=== PATIENT | female | born 1980 | race Caucasian/White ===

== ENCOUNTER 2022-05-04 10:26 | Outpatient (CLI) | payer BC, SELFPAY ==
--- OUTSIDE RECORDS SUMMARY | 2022-05-04 10:31 | XMS_ITS | Encounter Summary ---
:1980 Author Organization [facility] Address [address] [place] [address] Care Team Providers Name Role Phone Unavailable Primary Care Provider Unavailable Encounter Details Date Type Department Care Team Description 02/27/2015 Hospital Encounter HX [facility] Мария Spears M.D. [address] [place] [phone] (Wo rk) Social History Tobacco Use Types Packs/Day Years Used Date Smoking Tobacco: Never Assessed Alcohol Habits Answer Date Recorded How often do you have a drink containing alcohol? Never 07/23/2020 How many drinks containing alcohol do you have on a typical Not asked day when you are drinking? How often do you have six or more drinks on one occasion? No t asked Comment: Not asked Sex Assigned at Date Recorded Not on file documented as of this encounter Last Filed Vital Signs Vital Sign Reading Time Taken Comments Blood Pressure - - Pulse - - Temperature - - Respiratory Rate - - Oxygen Saturation - - Inhaled Oxygen Concentration - - Weight - - Height 170 cm (5' 6.93) 02/27/2015 8:33 AM CDT Body Mass Index - - documented in this encounter Medications at Time of Discharge Medication Sig Dispensed Refills Start Date End Date tetrahydrozoline (Visine) 0.05 1 drop as needed. 0 08/26/2008 % ophthalmic solution documented as of this encounter Miscellaneous Notes Miscellaneous - Conversion, Historical Provider Ser - 02/27/2015 11:59 PM CDT Coding Summary-Paper Based CODING DATE: 03/04/2015 FINAL [facility] STATUS: * Discharged to Home or Self Care PAYOR: [employer] ADMIT DX: 575.9 Unspecified Disorder of Gallbladder REASON FOR VISIT DX: 575.9 Unspecified Disorder of Gallbladder FINAL DX: PRINCIPAL: 575.9 Unspecified Disorder of Gallbladder SECONDARY: PROCEDURES DOCTOR NAME DATE NOTE: The code number assigned matches the documented diagnosis and / or procedure in the patient's chart. However, the narrative phrase printed from the coding software may appear abbreviated, or result in slightly different terminology. Coded By: BHAVANI PANDEY Date Saved: 03/04/2015 02:31 pm Source: [facility] Document Id: [id number] Miscellaneous - David Crabtree M.D. - 02/27/2015 6:52 PM CDT Normal Results Letter 27 February 2015 HATTIE BRENNER [address] [facility] [phone] Dear HATTIE BRENNER, I am pleased to report that your results from the following diagnostic test(s) are normal. Please follow up with us as we discussed during your visit or sooner if you have any concerns. If you have questions or concerns, please do not hesitate to call our office. Hattie for your record. Result Name Current Result US Abdomen Limited 02/27/2015 Sincerely, DAVID CRABTREE [address] [address] Electronic Signature Electronically Signed By: DAVID CRABTREE MD On: 27 February 2015 This document has images extracted. Source: [facility] Document Id: [id number] Electronically signed by Conversion, [facility] Tv Production Assistant [id number] at 01/03/2017 10:38 PM CDT documented in this encounter Plan of Treatment Not on filedocumented as of this encounter Visit Diagnoses Not on filedocumented in this encounter
--- OUTSIDE RECORDS SUMMARY | 2022-05-04 10:31 | XMS_ITS | Encounter Summary ---
:1980 Author Organization [facility] Address [address] [place] [address] Care Team Providers Name Role Phone Unavailable Primary Care Provider Unavailable Encounter Details Date Type Department Care Team Description 01/21/2015 Hospital Encounter HX [facility] Dewey Lawrence, MIKE RN, C.N.P., D.N.P. [address] [place] [address] [phone] (Wo rk) Social History Tobacco Use Types [...] - - Height 170 cm (5' 6.93) 01/21/2015 10:15 AM CDT Body Mass Index - - documented in this encounter Medications at Time of Discharge Medication Sig Dispensed Refills Start Date End Date tetrahydrozoline (Visine) 0.05 1 drop as needed. 0 08/26/2008 % ophthalmic solution documented as of this encounter Miscellaneous Notes Telephone Encounter - Conversion, Historical Provider Ser - 02/04/2015 2:24 PM CDT Please call Document Contains Addenda Addendum by NUZHAT MAS RN on 14 February 2015 10:21:18 CDT LM again to call nurse Addendum by FRANCY AMADO V on 11 February 2015 08:58:54 CDT LVM again Addendum by DEWEY LAWRENCE RN, WAIVER ANALYST on 11 February 2015 06:02:57 CDT From: DEWEY LAWRENCE RN, WAIVER ANALYST To: FRANCY AMADO V; NUZHAT MAS RN; Sent: 02/11/2015 06:02:57 CDT Subject: RE: Please call I have tried calling but unable to reach. I have left a message. Can you call and ask if it is regarding medication for anxiety? Thanks Addendum by DEWEY LAWRENCE RN, WAIVER ANALYST on 05 February 2015 19:22:47 CDT From: DEWEY LAWRENCE RN, WAIVER ANALYST To: FRANCY AMADO V; Sent: 02/05/2015 19:22:47 CDT Subject: RE: Please call called and left message. From: FRANCY AMADO V To: DEWEY LAWRENCE RN, WAIVER ANALYST; Sent: 02/04/2015 14:24:48 CDT Subject: Please call Pt requesting you call to discuss meds. She indicated you had discussed this @ 11/15 visit but it wasn't for her thyroid. Dictation doesn't mention anything else. # [phone] Source: [facility] [employer] Document Id: [id number] Miscellaneous - Dewey Lawrence, ALEXEY, C.N.P. - 01/23/2015 1:09 PM CDT Normal Results Letter 23 January 2015 HATTIE BRENNER [address] [facility] [phone] Dear HATTIE BRENNER, Your results from the following Thyroid test is improved but still high. I'd like to increase your Kelly to 60mg daily and recheck your TSH (blood draw) in 3 months. A new script was sent to your pharmacy. Please follow up with us as we discussed during your visit or sooner if you have any concerns. If you have questions or concerns, please do not hesitate to call our office. Result Name Current Result Previous Result Normal Range TSH (mIU/L) (H) 4.63 01/21/2015 (H) 6.05 10/16/2014 0.27 - 4.20 Sincerely, DEWEY LAWRENCE [id number] [address] Electronic Signature Electronically Signed By: DEWEY LAWRENCE RN, WAIVER ANALYST On: 23 January 2015 This document has images extracted. Source: [facility] POWERCHART Document Id: [id number] Electronically signed by Conversion, [facility] Security Advisor [id number] at 01/04/2017 2:13 PM CDT documented in this encounter Plan of Treatment Not on filedocumented as of this encounter Procedures Procedure Name Priority Date/Time Associated Diagnosis Comme nts THYROID-STIMULATING Routine 01/21/2015 10:23 AM R esults for this HORMONE-SENSITIVE CDT procedure are in (S-TSH) the results section. documented in this encounter Results (ABNORMAL) Thyroid-Stimulating Hormone-Sensitive (s-TSH) (01/21/2015 10:23 AM CDT) P athologist Signature TSH 4.63 (H) 0.27 - POWERCHART (Thyrotropin) 4.20 MIUL Specimen (Source) Anatomical Collection Method Collection Time Re ceived Time Location / / Volume Laterality Blood 01/21/2015 10:23 AM CDT Dewey Lawrence APRN, C.N.P., D.N.P. LAB BLOOD ADD-ON Performing Organization Address City/State/ZIP Code Phon e Number POWERCHART documented in this encounter Visit Diagnoses Not on filedocumented in this encounter
--- OUTSIDE RECORDS SUMMARY | 2022-05-04 10:31 | XMS_ITS | Encounter Summary ---
:1980 Author Organization [facility] Address [address] [place] [address] Care Team Providers Name Role Phone Laureen Montana D.O. Primary Care Provider [phone] Reason for Visit Reason Comments Med Refill Encounter Details Date Type Department Care Team Description 09/02/2021 Refill Department of [facility] [place] Montana D.O. Med Refill Medicine, [facility], in [address] [place] [address] [address] [facility] [place] [address] [phone] Social History Tobacco Use Types Packs/Day Years Used Date Smoking Tobacco: Never Smokeless Tobacco: Never Alcohol Use Standard Drinks/Week Comments Not Currently 0 (1 standard drink = 0.6 oz pure alcoho l) Alcohol Habits Answer Date Recorded How often [...] on file documented as of this encounter Plan of Treatment Not on filedocumented as of this encounter Visit Diagnoses Not on filedocumented in this encounter Care Teams Dental Office Coordinator Relationship Specialty Start Date End Date Laureen Montana D.O. PCP - General Family Medicine 09/27/20 [address] [place] [phone] documented as of this encounter
--- OUTSIDE RECORDS SUMMARY | 2022-05-04 10:31 | XMS_ITS | Encounter Summary ---
:1980 Author Organization [facility] Address [address] [place] [address] Care Team Providers Name Role Phone Laureen Montana D.O. Primary Care Provider [phone] Encounter Details Date Type Department Care Team Description 02/27/2021 Hospital Encounter Department of Matt Abad M.D. Radiology in [place] [id number] [place] [address] [place] [address] Social History Tobacco Use Types Packs/Day Years [...] on file documented as of this encounter Medications at Time of Discharge Medication Sig Dispensed Refills Start Date End Date laelvxu-nphvevswn-yuua Take by mouth. 0 333-133-5 mg tablet cholecalciferol (VITAMIN Take 1 capsule by 0 D3) 2.5 mcg (100 Unit) mouth. tablet Lactobac no.30-Bifidobact Take 1 capsule by 0 no.4 30 billion cell mouth daily. capsule,delayed release(DR/EC) omega-3 fatty acids-fish 1 capsule. 0 oil 340-1,000 mg per capsule tetrahydrozoline (Visine) 1 drop as needed. 0 0.05 % ophthalmic solution thyroid, pork, 30 mg tablet Take 1 tablet (30 90 tablet 3 0 10/01/2020 09/01/2021 mg total) by mouth daily. documented as of this encounter Plan of Treatment Not on filedocumented as of this encounter Procedures Procedure Name Priority Date/Time Associated Comments Diagnosis DX CHEST AP OR PA RAD - Routine 02/27/2021 4:56 Pain Head Results for this AND LATERAL 2 (most inpatients PM CDT Pain Neck procedure are in VIEWS and all Pain Chest the results outpatients) Atypical section. documented in this encounter Results DX Chest AP or PA and Lateral 2 Views (02/27/2021 4:56 PM CDT) Anatomical Region Laterality Modality Chest, Thoracic RST LOS, Thoracic ARZ LOS, Thoracic N/A Digital Radiography FLA LOS Specimen (Source) Anatomical Collection Method Collection Time Re ceived Time Location / / Volume Laterality 02/27/2021 11:19 PM CDT Impressions 02/27/2021 11:20 PM CDT No focal pulmonary consolidation. No pleural effusion. No pneumothorax. Normal cardiomediastinal s ilhouette. Narrative 02/27/2021 11:20 PM CDT EXAM: DX CHEST AP OR PA AND LATERAL 2 VIEWS Procedure Note Mata Huggins M.D. - 02/27/2021Format ting of this note might be different from the original. EXAM: DX CHEST AP OR PA AND LATERAL 2 EWS IMPRESSION: No focal pulmonary consolidation. No ple ural effusion. No pneumothorax. Normal cardiomediastinal s ilhouette. Matt Abad M.D. [facility] DI[facility]NOSTIC IMAGING PROCE JOEY documented in this encounter Visit Diagnoses Not on filedocumented in this encounter Care Teams Supervisor Paper Products Relationship Specialty Start Date End Date Laureen Montana D.O. PCP - General Family Medicine 09/27/20 [address] [place] [phone] documented as of this encounter
--- OUTSIDE RECORDS SUMMARY | 2022-05-04 10:31 | XMS_ITS | Encounter Summary ---
:1980 Author Organization [facility] Address [address] [place] [address] Care Team Providers Name Role Phone Laureen Montana D.O. Primary Care Provider [phone] Reason for Referral Outpatient (Routine) - Closed Specialty Diagnoses / Procedures Referred By Contact Refer red To Contact Diagnoses Pain Head Pain Neck Pain Chest Atypical Matt Abad M.D. [facility] Region Procedures ECG [address] [place] [address] Referral ID Status Reason Start Date Expiration Date Visits Requ ested Visits Authorized [id number] Closed 02/27/2021 02/27/2022 1 1 Reason for Visit Reason Comments Pain neck, head and chest Appointment Request (Routine) - Closed Specialty Diagnoses / Procedures Referred By Contact Refer red To Contact Family Medicine Referral ID Status Reason Start Date Expiration Date Visits Requ ested Visits Authorized [id number] Closed 02/27/2021 02/27/2022 1 1 Encounter Details Date Type Department Care Team Description 02/27/2021 Office Visit Department of Matt Schumacher Pai n Head (Primary Dx); Medicine, [facility]; Clinic, in [address] [facility] [address] [place] [address] [place] [address] [place] [phone] (Wo rk) [phone] Social History Tobacco Use Types Packs/Day Years [...] Sign Reading Time Taken Comments Blood Pressure 134/74 02/27/2021 3:21 PM CDT Pulse 91 02/27/2021 3:21 PM CDT Temperature 37.4 ??C (99.3 ??F) 02/27/2021 3:21 PM CDT Respiratory Rate - - Oxygen Saturation 100% 02/27/2021 3:21 PM CDT room ai r Inhaled Oxygen Concentration - - Weight 60.9 kg (134 lb 4.2 oz) 02/27/2021 3:21 PM CDT Height - - Body Mass Index 21.03 07/23/2020 10:07 AM FLIPPING MACHINE OPERATOR documented in this encounter Progress Notes Matt Abad M.D. - 02/27/2021 3:30 PM CDT SUBJECTIVE CHIEF COMPLAINT/REASON FOR VISIT Hattie Brenner is a 40 y.o. female presenting today for evaluation of Pain (neck, head and chest) . HISTORY OF PRESENT ILLNESS Left head and neck pain off and on for a month. Today had left chest pain as well (also present in past, but not as often). That seems a separate issue. This started with a severe occipital region headpain when at the pool. The pain does awaken her at night. No specific tx yet. Essential oil does provide limited benefit for head/neck pain. No fever/chills, no nausea/vomiting, no skin rash. No vision/hearing problems. Seems a little off balance with head sxs but no falls. No incoordination. No photo or phonophobia. No nausea during. No aura. No swollen joints or painful joints. No known insect bites including mosquito or tick. Used to get migraines and nothing like that. Not . Taking an [place] Thyroid supplement which is working better for her than previous options. Had MRI brain 2015: 19-Nov-2014 14:29:00 Exam: MRI Hd wo&w Indications: headaches ORIGINAL REPORT - 19-Nov-2014 17:53:00 EXAM: MRI Brain without and with IV contrast COMPARISON: Head CT 07/16/2004 IMPRESSION: No restricted diffusion, abnormal enhancement, mass effect, or hydrocephalus. Two, small nonenhancing T2 hyperintensities involving the right frontal lobe (12/28 and ) are nonspecific but can be seen the small vessel change or in some migraineurs. No findings to correlate with the prominent left parietal sulcus demonstrated on the prior CT. Opacification of a single anterior right ethmoid air cell. Hypoplasia of the frontal sinuses. CURRENT MEDICATIONS Current Outpatient Medications Medication Sig Dispense Refill ??? hwsnoyk-ozcvtiuuu-agcu 333-133-5 mg tablet Take by mouth. ??? Lactobac no.30-Bifidobact no.4 30 billion cell capsule,delayed release(DR/EC) Take 1 capsule by mouth daily. ??? omega-3 fatty acids-fish oil 340-1,000 mg per capsule 1 capsule. ??? tetrahydrozoline (Visine) 0.05 % ophthalmic solution 1 drop as needed. ??? thyroid, pork, 30 mg tablet Take 1 tablet (30 mg total) by mouth daily. 90 tablet 3 ??? cholecalciferol (VITAMIN D3) 2.5 mcg (100 Unit) tablet Take 1 capsule by mouth. No current facility-administered medications for this visit. ALLERGIES/CONTRAINDICATIONS Allergies Allergen Reactions ??? Paroxetine Other (see comments) Made depression worse, Suicidal ??? Pollen Extracts Other (see comments) Sneezing, itchy eyes MEDICAL HISTORY No past medical history on file. SURGICAL HISTORY Past Surgical History: Procedure Laterality Date ??? CHOLECYSTECTOMY 2016 ??? MYRINGOTOMY AND INSERTION OF T TUBE N/A Myringotomy including aspiration and/or eustachian tube inflation requiring general anesthesia.. ??? OTHER CONVERTED SHX (SEE COMMENT) N/A 07/27/1988 Bilateral myringotomy with insertion of Paparella tube. FAMILY HISTORY Family History Problem Relation Age of Onset ??? Diabetes Grandmother ??? Breast cancer Aunt SOCIAL HISTORY Social History Tobacco Use ??? Smoking status: Never Smoker ??? Smokeless tobacco: Never Used Substance Use Topics ??? Alcohol use: Not Currently SCREENINGS: The following screenings were completed: PHQ-2 Score: 0 OBJECTIVE VITAL SIGNS Blood pressure 134/74, pulse 91, temperature 37.4 ??C, temperature source Temporal, weight 60.9 kg, last menstrual period 02/27/2021, SpO2 100 %. Body mass index is 21.03 kg/m??. PHYSICAL EXAMINATION General: Pleasant, well appearing, NAD Neuro: Romberg negative. CNII-XII grossly symmetric and intact. Biceps, quadriceps DTRs symmetric and intact. Grasp symmetric. Heart: RRR no m/g/r. Tender to palpation along left costochondral junction. Lungs: CTA bilat ENT: TMs and canals normal. Left neck musculature is tender with increased tone, but no erythema/warmth, no meningismus. ASSESSMENT / PLAN #1 Pain Head #2 Pain Neck #3 Pain Chest Atypical Other orders - ECG 12 Lead; Future; Expected date: 02/27/2021 - DX Chest AP or PA and Lateral 2 Views; Future; Expected date: 02/27/2021 - CRP (C-Reactive Protein) - D-Dimer - Sedimentation Rate - DX Chest AP or PA and Lateral 2 Views - ECG 12 Lead Will check labs as above; pt did have additional blood work in November so we do not need to redraw CBCor TSH today. This presentation is not consistent with PE or other thromboembolic phenomenon but will check d-dimer. We agreed updated RETREAD MOLD OPERATOR imaging not indicated at this point, but she should update us if sxs persist or worsen. Regarding symptom management, recommended she scrutinize her mattress/pillow for any potential issues. She will continue essential oil application which helps, and she plans to have massage therapy as well. Finally, I recommended trial of OTC NSAID and she seems amenable. Questions answered, no other concerns. documented in this encounter Miscellaneous Notes Result Encounter Note - Matt Abad M.D. - 03/03/2021 7:26 AM CDT Shivam Kuhn, As you may have seen, your d-dimer (blood clot test) is also normal. Please proceed as we discussed at your appointment, and let me (or Dr. Montana) know if your symptoms persist or change. Dr. Abad Result Encounter Note - Matt Abad M.D. - 02/28/2021 12:38 PM CDT Shivam Kuhn, I'm pleased to report your chest x ray, ECG and inflammatory markers (sedimentation rate and CRP) look good. This is very reassuring. Your d-dimer test is still pending. I will be in touch when that result is available. Dr. Abad documented in this encounter Plan of Treatment Not on filedocumented as of this encounter Procedures Procedure Name Priority Date/Time Associated Comments Diagnosis DX CHEST AP OR PA RAD - Routine 02/27/2021 4:56 Pain Head Results for AND LATERAL 2 VIEWS (most inpatients PM CDT Pain Neck this procedure and all Pain Chest are in the outpatients) Atypical results section. ECG Routine 02/27/2021 4:28 Pain Head Results for PM CDT Pain Neck this procedure Pain Chest are in the Atypical results section. SEDIMENTATION RATE, Routine 02/27/2021 4:27 Pain Head Results for B PM CDT Pain Neck this procedure Pain Chest are in the Atypical results section. D-DIMER, P Routine 02/27/2021 4:27 Pain Head Results for PM CDT Pain Neck this procedure Pain Chest are in the Atypical results section. C-REACTIVE PROTEIN Routine 02/27/2021 4:27 Pain Head Results for (CRP), S/P PM CDT Pain Neck this procedure Pain Chest are in the Atypical results section. documented in this encounter Results DX [...] Normal cardiomediastinal s ilhouette. Matt Abad M.D. IMG DIAGNOSTIC IMAGING PROCE [facility] ECG 12 Lead (02/27/2021 4:28 PM CDT) P athologist Signature Ventricular Rate 68 BPM MUSE ECG/Min TX Interval 118 ms MUSE QRSD Interval 76 ms MUSE QT Interval 428 ms MUSE QTC Interval 455 ms MUSE P [place] 71 degrees MUSE R [place] 45 degrees MUSE T Wave [place] 26 degrees MUSE Specimen Anatomical Collection Method Collection Time Receive d Time (Source) Location / / Volume Laterality 02/27/2021 4:28 PM 4:46 CDT PM CDT Impressions MUSE - 02/27/2021 4:47 PM CDT Normal sinus rhythm with short TX Left atrial enlargement Nonspecific ST and T wave abnormality When compared with ECG of 24-APR-2004 09 :11, No significant change was found Reviewed by TANNER Alracon Narrative This result has an attachment that is no t available. Procedure Note Mata Romo M.D. - 02/27/2021Form atting of this note might be different from the original. IMPRESSION: Normal sinus rhythm with short TX Left atrial enlargement Nonspecific ST and T wave abnormality When compared with ECG of 24-APR-2004 09 :11, No significant change was found Reviewed by TANNER Alarcon Matt Abad M.D. ECG ORDERABLES Performing Organization Address City/State/ZIP Code Phon e Number MUSE MUSE NA Sedimentation Rate (02/27/2021 4:27 PM CDT) Analysis Performed At Patho logist Time Signature Sedimentation 10 0 - 29 02/27/2021 [facility] Rate, B mm/1 h 8:22 PM CDT Specimen Anatomical Collection Method Collection Time Receive d Time (Source) Location / / Volume Laterality Blood (Blood, 02/27/2021 4:27 PM 02/28/20 7:34 Venous) CDT PM CDT Matt Abad M.D. LAB BLOOD ADD-ON Performing Organization Address City/State/ZIP Code Phon e Number [facility]- [address] [place], [place] [address] [place] [address] System in [place] [address] [place], [place] [address] D-Dimer (02/27/2021 4:27 PM CDT) athologist Signature D-Dimer, P <220 <=500 ng/mL 02/28/2021 [facility] FEU 3:17 PM CDT Comment: ----ADDITIONAL INFORMATION---- D-dimer values less than or equal to 500 ng/mL fibrinogen equivalent units (FEU) may be used in co njunction with clinical pre-test probability to exclude deep vein thrombosis (DVT) and/or pulmonary emboli sm (PE). Specimen Anatomical Collection Method Collection Time Receive d Time (Source) Location / / Volume Laterality Blood (Blood, 02/27/2021 4:27 PM 02/29/20 3:14 Venous) CDT PM CDT Matt Abad M.D. LAB BLOOD ADD-ON Performing Organization Address City/[facility]/ZIP Code Phon e Number [facility]- [address] [place], [place] [address] [place] [address] System in [place] CRP (C-Reactive Protein) (02/27/2021 4:27 PM CDT) athologist Signature C-Reactive <3.0 <=8.0 mg/L 02/27/2021 [facility] Protein (CRP), 7:55 PM CDT P Specimen Anatomical Collection Method Collection Time Receive d Time (Source) Location / / Volume Laterality Blood (Blood, 02/27/2021 4:27 PM 02/28/20 21 7:34 Venous) CDT PM CDT Matt Abad M.D. LAB BLOOD ADD-ON Performing Organization Address City/State/ZIP Code Phon e Number [facility]- [address] [place], [place] [address] [place] [address] System in [place] [address] documented in this encounter Visit Diagnoses Diagnosis Pain Head - Primary Pain Neck Pain Chest Atypical documented in this encounter Care Teams Heating And Refrigeration Inspector Relationship Specialty Start Date End Date Laureen Montana D.O. PCP - General Family Medicine 09/27/20 [address] [place] [address] documented as of this encounter
--- OUTSIDE RECORDS SUMMARY | 2022-05-04 10:31 | XMS_ITS | Encounter Summary ---
:1980 Author Organization [facility] Address [address] [place] [address] Care Team Providers Name Role Phone Laureen Montana D.O. Primary Care Provider [phone] Encounter Details Date Type Department Care Team Description 04/14/2022 Orders Only [facility] P[facility] HL MNT Laureen Montana, Hypothyroidism D.O. [address] [place], [place] [phone] (Wo rk) Social History Tobacco [...] as of this encounter Plan of Treatment Scheduled Orders Name Type Priority Associated Diagnoses Order S asad S-TSH Lab Routine Hypothyroidism Expected: , (Thyroid-Stimulating Expires : 10/11/2022 Hormone - Sensitive) documented as of this encounter Visit Diagnoses Diagnosis Hypothyroidism documented in this encounter Care Teams German Professor Relationship Specialty Start Date End Date Laureen Montana D.O. PCP - General Family Medicine 09/27/20 [address] [place] [address] documented as of this encounter
--- OUTSIDE RECORDS SUMMARY | 2022-05-04 10:31 | XMS_ITS | Encounter Summary ---
:1980 Author Organization [facility] Address [address] [place] [address] Care Team Providers Name Role Phone Laureen Montana D.O. Primary Care Provider [phone] Reason for Visit Reason Comments Nasal Congestion Appointment Request (Routine) - Closed Specialty Diagnoses / Procedures Referred By Contact Refer red To Contact Family Medicine Referral ID Status Reason Start Date Expiration Date Visits Requ ested Visits Authorized [id number] Closed 07/18/2021 07/18/2022 1 1 Encounter Details Date Type Department Care Team Description 07/18/2021 Office Visit Department of [facility] Matt Abad, Inf ection Upper Respiratory (Primary Dx); Megan Fitch M.D. Conj[facility]ivitis [facility], in [address] [place] [address] [place] [place] [phone] (Work) [phone] Social History Tobacco Use Types Packs/Day Years [...] Sign Reading Time Taken Comments Blood Pressure 117/77 07/18/2021 9:54 AM DIRECTOR OF GLOBAL MARKETING Pulse 86 07/18/2021 9:54 AM DIRECTOR OF GLOBAL MARKETING Temperature 36.6 ??C (97.9 ??F) 07/18/2021 9:54 AM DIRECTOR OF GLOBAL MARKETING Respiratory Rate - - Oxygen Saturation 100% 07/18/2021 9:54 AM DIRECTOR OF GLOBAL MARKETING Inhaled Oxygen Concentration - - Weight 60.1 kg (132 lb 7.9 oz) 07/18/2021 9:54 AM DIRECTOR OF GLOBAL MARKETING Height - - Body Mass Index 20.75 07/23/2020 10:07 AM DIRECTOR OF GLOBAL MARKETING documented in this encounter Patient Instructions Patient InstructionsMatt Abad M.D. - 07/18/2021 10:00 AM CST 1. Please start the eye antibiotic drop. 2. Start an dhih-toh-pszkvgi nasal steroid (Flonase or Nasacort) and use per package label for at least 2 weeks 3. Use pseudoephedrine as a decongestant. 4. Please continue use of the Neti Pot once-twice daily. 5. An eaxi-ppq-puuqykv pain reliever may be used in addition if needed. CTOR OF GLOBAL MARKETING documented in this encounter Progress Notes Matt Abad M.D. - 07/18/2021 10:00 AM CST SUBJECTIVE CHIEF COMPLAINT/REASON FOR VISIT Hattie Brenner is a 41 y.o. female presenting today for evaluation of Nasal Congestion HISTORY OF PRESENT ILLNESS Ms. Brenner is a 41 year old female who presents due to concerns about sinusitis. Triage also mentioned a concern about conjunctivitis. She has not had a recent lab COVID test. Rhinorrhea is yellow/white to clear. No fever/chills. No myalgia. Taste/smell intact. Onset of sore throat 3 days ago. Eye mattering 2 days ago. Used ear candle, Neti pot. Used homeopathic pinkeye drop. 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 Home COVID test positive May 19. No tobacco use. Not . CURRENT MEDICATIONS Current Outpatient Medications Medication Sig Dispense Refill ??? zxqzkyb-zbzxbxofp-tyxa 333-133-5 mg tablet Take by mouth. ??? cholecalciferol (VITAMIN D3) 2.5 mcg (100 Unit) tablet Take 1 capsule by mouth. ??? Lactobac no.30-Bifidobact no.4 30 billion cell capsule,delayed release(DR/EC) Take 1 capsule by mouth daily. ??? omega-3 fatty acids-fish oil 340-1,000 mg per capsule 1 capsule. ??? tetrahydrozoline (Visine) 0.05 % ophthalmic solution 1 drop as needed. ??? thyroid, pork, 30 mg tablet Take 1 tablet (30 mg total) by mouth daily. 90 tablet 3 No current facility-administered medications for this visit. [...] Use Topics ??? Alcohol use: Not Currently OBJECTIVE VITAL SIGNS Blood pressure 117/77, pulse 86, temperature 36.6 ??C, temperature source Temporal, weight 60.1 kg, SpO2 100 %. Body mass index is 20.75 kg/m??. PHYSICAL EXAMINATION General: Pleasant, well appearing, NAD. Eyes: Photo reviewed, bilat mattering, conjunctival injection. Yesterday had lid swelling but this has improved. Currently no palpebral or periorbital edema or erythema. No mattering, conjunctiva clear. PERRL, EOM intact ENT: Examined and normal except for waxy residue bilat ear canals (from candling?). Maxillary sinuses mildly tender to palpation. Heart: RRR no m/g/r Lungs: CTA bilat ASSESSMENT / PLAN #1 Infection Upper Respiratory #2 Conjunctivitis Other orders - polymyxin B-trimethoprim (POLYTRIM) 10,000 unit- 1 mg/mL ophthalmic solution; Administer 1 drop into both eyes 4 (four) times a day. Use for 7 days., Starting Wed07/18/2021, Normal No indication for oral antibiotic nor COVID test at this time. Will initiate Polytrim gtts as above and further measures as below. Hattie should let us know if sxs persist or progress, and she will keeprepeat COVID testing on her radar in that circumstance given the emergence of variants. Questions answered. Patient Instructions 1. Please start the eye antibiotic drop. 2. Start an wnvo-ytv-mhjtxri nasal steroid (Flonase or Nasacort) and use per package label for at least 2 weeks 3. Use pseudoephedrine as a decongestant. 4. Please continue use of the Neti Pot once-twice daily. 5. An fivw-xbn-ducbmlu pain reliever may be used in addition if needed. CTOR OF GLOBAL MARKETING documented in this encounter Plan of Treatment Not on filedocumented as of this encounter Visit Diagnoses Diagnosis Infection Upper Respiratory - Primary Conjunctivitis documented in this encounter Care Teams Warp Spinner Relationship Specialty Start Date End Date Laureen Montana D.O. PCP - General Family Medicine 09/27/20 [address] [place] [address] documented as of this encounter
--- OUTSIDE RECORDS SUMMARY | 2022-05-04 10:31 | XMS_ITS | Encounter Summary ---
:1980 Author Organization [facility] Address [address] [place] [address] Care Team Providers Name Role Phone Laureen Montana D.O. Primary Care Provider [phone] Encounter Details Date Type Department Care Team Description 07/25/2021 Hospital Encounter Department of Huong [place] ecified Laboratory Medicine [facility] in [place], [address] [facility] [address] [place], [place] [phone] (Work) [phone] Social History Tobacco Use Types Packs/Day Years [...] Sig Dispensed Refills Start Date End Date tbhgqnk-lvsunhfto-gcmt Take by mouth. 0 333-133-5 mg tablet cholecalciferol (VITAMIN Take 1 capsule by 0 D3) 2.5 mcg (100 Unit) mouth. tablet Lactobac no.30-Bifidobact Take 1 capsule by 0 no.4 30 billion cell mouth daily. capsule,delayed release(DR/EC) omega-3 fatty acids-fish 1 capsule. 0 oil 340-1,000 mg per capsule polymyxin B-trimethoprim Administer 1 drop 10 mL 0 07/09 (POLYTRIM) 10,000 unit- 1 into both eyes 4 mg/mL ophthalmic solution (four) times a day. Use for 7 days. tetrahydrozoline (Visine) 1 drop as needed. 0 0.05 % ophthalmic solution thyroid, pork, 30 mg Take 1 tablet (30 90 tablet 3 10/01/19 21 09/01/2021 tablet mg total) by mouth daily. documented as of this encounter Plan of Treatment Scheduled Orders Name Type Priority Associated Diagnoses Order S chedule Kit Collection Lab Routine Other Specified Disorders Of Once for 1 Occurrences Thyroid starting 2020 until 07/25/2021 documented as of this encounter Visit Diagnoses Diagnosis Other Specified Disorders Of Thyroid documented in this encounter Care Teams Director Non Profit Relationship Specialty Start Date End Date Laureen Montana D.O. PCP - General Family Medicine 09/27/20 [address] [place] [phone] documented as of this encounter
--- OUTSIDE RECORDS SUMMARY | 2022-05-04 10:31 | XMS_ITS | Encounter Summary ---
:1980 Author Organization [facility] Address [address] [place] [address] Care Team Providers Name Role Phone Laureen Montana D.O. Primary Care Provider [phone] Encounter Details Date Type Department Care Team Description 04/15/2021 [facility] Only [facility] La[facility]en [place] D.O. [address] [place], [place] [phone] (Wo rk) Social History [...] on filedocumented in this encounter Care Teams Climate Change Analyst Relationship Specialty Start Date End Date Laureen Montana D.O. PCP - General Family Medicine 09/27/20 [address] [place] [address] documented as of this encounter
--- OUTSIDE RECORDS SUMMARY | 2022-05-04 10:31 | XMS_ITS | Encounter Summary ---
:1980 Author Organization [facility] Address [address] [place] [address] Care Team Providers Name Role Phone Unavailable Primary Care Provider Unavailable Encounter Details Date Type Department Care Team Description 07/22/2016 Hospital Encounter [facility] Yazmin Sims M.D. [address] [place], [place] [phone] (Wo rk) Social History [...] - - Height 170 cm (5' 6.93) 07/22/2016 9:59 AM WATCHER LOOKOUT TOWER Body Mass Index - - documented in this encounter Medications at Time of Discharge Medication Sig Dispensed Refills Start Date End Date Lactobac no.30-Bifidobact Take 1 capsule by 0 no.4 30 billion cell mouth daily. capsule,delayed release(DR/EC) tetrahydrozoline (Visine) 1 drop as needed. 0 0.05 % ophthalmic solution documented as of this encounter Progress Notes Swetha Diaz, JONY - 07/22/2016 9:35 AM CST glc consult-referred Scar Ocular History: Ocular Sx/Procedures: JARROD FHx: Neg Glauc. susp. (bsd on C/D ratio, [place] _ _ _ _ _ PACH: _/_/_ R ._ L ._ Date 06/12/16 _/_/_ _/_/_ _/_/_ _/_/_ _/_/_ SCAR VA-R cc 20/20 _c 20/_ _c 20/_ _c 20/_ _c 20/_ _c 20/_ VA-L 20/20 20/_ 20/_ 20/_ 20/_ 20/_ IOP-Target _ _ _ _ _ _ IOP-R 12 _ _ _ _ _ IOP-L 14 _ _ _ _ _ Drops: NONE _ _ _ _ _ _ _ _ _ _ _ _ _ _ _ _ _ _ _ _ _ _ _ _ _ _ _ _ _ DFE Y _ _ _ _ _ OCT-Nerves N _ _ _ _ _ HVF 24-2 N _ _ _ _ _ Last MR: 06/12/16 R: -0.75+0.72z547 L: -0.75+sphx_ DO OCT ONH and copy FAX results to NEETU ABBOTT scheduled future appt Patient presents for: OCT and glaucoma consult History of present illness: PT had comp eye exam with Dr. Abbott on 06/12/16. He sends here for glaucoma OCT and evaluation Ocular Meds: AT's OU occasionally Visual Acuity using Snellen method for both eyes. Right Eye Left Eye Distance c 20/20 20/20 Correction X Glasses _ Contacts Entrance Tests Pupils: PERRL APD: _ Negative IOP Right Eye: 10 Left Eye: 12 Tonometry : X Applanation _ Tonopen glc OCT OU completed, sent to eads Dilation Medication: OU @ None _ Tropicamide 1.0% _ Phenylephrine 2.5% _ Cyclogel 1.0% _ Paremyd Active Problems: Refer to patient chart. Past Medical History: Refer to patient chart. Allergies: Refer to patient chart. Review of Systems Respiratory: (X) Negative Other: _ Cardiovascular:(X)Negative Other: _ Neurologic: (X) Negative Other: Migraines Endocrine: (X) Negative Other: Hypothyroidism Psychiatric: No apparent anxiety or depression. Pleasant affect. Electronically Signed By: CAIN BERGER MD On: 08/03/2016 07:32 PM Modified by and Electronically Signed by: SWETHA DIAZ On: 07/22/2016 09:41 AM Co-Signed By: CAIN BERGER MD On: 08/03/2016 07:32 PM Source: [facility] [employer] Document Id: [id number] Cain Khan M.D. - 07/22/2016 9:29 AM CST [id number] Hattie is here referred from Dr. Abbott for an optic nerve evaluation. Dr. Abbott was concerned about the appearance of the optic nerves as it relates to the possibility of glaucoma. There is no family history of glaucoma. The patient has no visual complaints. PHYSICAL EXAMINATION SLIT-LAMP EXAMINATION: Both eyes: Conjunctivae are quiet. Corneas clear. Chambers deep and quiet. Iris normal. Lens clear. FUNDUS: Undilated. The nerves appear pink and healthy. There is moderate cupping but I do not see any notching or hemorrhages. The OCT study of the optic nerve is normal both eyes, and the intraocular pressure measured 10 righteye and 12 left eye. IMPRESSION/REPORT/PLAN Physiologic cupping of the optic nerves. No evidence of glaucoma. PLAN: Will send a copy of the optical coherence tomography to Dr. Abbott and a letter, and she will continue to follow up with Dr. Abbott. Cain Berger M.D./danyelle Electronically Signed By: CAIN BERGER MD On: 08/03/2016 07:42 PM Source: [facility] [employer] Document Id: [id number] Chapito Sher C.O.Jessie - 07/17/2016 3:54 PM CST Ocular History: Ocular Sx/Procedures: JARROD Glauc. susp. (bsd on C/D ratioScar _ _ _ _ _ PACH: _/_/_ R ._ L ._ Date 06/12/16 _/_/_ _/_/_ _/_/_ _/_/_ _/_/_ SCAR VA-R cc 20/20 _c 20/_ _c 20/_ _c 20/_ _c 20/_ _c 20/_ VA-L 20/20 20/_ 20/_ 20/_ 20/_ 20/_ IOP-Target _ _ _ _ _ _ IOP-R 12 _ _ _ _ _ IOP-L 14 _ _ _ _ _ Drops: NONE_ _ _ _ _ _ _ _ _ _ _ _ _ _ _ _ _ _ _ _ _ _ _ _ _ _ _ _ _ _ DFE Y_ _ _ _ _ _ OCT-Nerves N _ _ _ _ _ HVF 24-2 N _ _ _ _ _ Last MR: 06/12/16 R: -0.75+0.30p398 L: -0.75+sphx_ DO OCT ONH and copy FAX results to NEETU ABBOTT scheduled future appt Electronically Signed By: CHAPITO ALEXANDER C.O.TDex On: 07/27/2016 12:12 PM Source: [employer] Document Id: [id number] HER LOOKOUT TOWER documented in this encounter Miscellaneous Notes Miscellaneous - Cain Berger M.D. - 07/22/2016 10:11 AM CST Ambulatory Patient Summary [facility] [address], [address] [place], [place] [phone] Visit Information Name: HATTIE BRENNER [facility] Number: [phone] Current Date: 07/22/2016 10:11:08 Physicians Attending Provider: CAIN BERGER MD Primary Care Provider: DOUG LEWIS PA-C OFEHATTIE RAE has been given the following list of follow-up instructions, medication list, and patient education materials: Follow-up Instructions Your Medications Here is a list of your medications. It is important to take your medications as directed. Use a pillbox or chart to help remind you to take your medications. Please let your doctor or nurse know if you have problems taking your medications. Medication/Strength How to Take Indications/Special Instructions/Comments/Notes for Patient Medication Changes/Routing *aspirin (aspirin) 81 mg, Oral, once a day bifidobacterium-lactobacillus (Probiotic Formula) 1 cap, Oral, once a day Misc Prescription (Misc Prescription) Tumeric one tablet daily multivitamin (Vitamin B Complex oral tablet) 1 Tablet(s), Oral, once a day multivitamin with minerals (Calcium, Magnesium and Zinc oral tablet) 1 Tablet(s), Oral, once a day omega-3 polyunsaturated fatty acids (Fish Oil 1000 mg oral capsule) 1 cap, Oral, three times a day thyroid desiccated ([place] Thyroid 60 mg oral tablet) 1 Tablet(s), Oral, once a day * You have let us know that you are not taking this medication as listed. Please talk with your primary care provider or the health care provider who prescribed the medication as soon as possible. Stop Taking the Following Medications: Medication list as of 07-22-16 10:11 Attention: If you have any medications at home that are not on this list, DO NOT take them until youcontact your provider for clarification. Give a copy of your medication list to your primary care provider. Update your medication list any time medications or doses are changed and carry your medication list at all times in case of emergency. Electronically Signed By: CAIN BERGER MD Signed On:22-JUL-2016 10:11:05 Your Allergies & Intolerances Substance Reaction Symptoms Category Comments No Known Allergies Drug Your Problem List Problem Status Onset Comments Palpitations Active 04/24/2004 Numbness Active 07/16/2004 Allergy Seasonal Active 12/31/2005 None Active 01/16/2013 Hypothyroidism NOS Active 11/15/2014 Your Upcoming Appointments Date Time Location Provider No Appointments found Attention: Contact your local Clinic if further appointment detail needed. Consider Using Patient Online Services Patient Online Services is a secure online and Mobile application that lets you: ?? View lab and test results ?? View portions of your medical record including clinical notes, immunizations and discharge summaries ?? Request an appointment or medication refill ?? Review your appointment schedule ?? Send secure messages to your care team Its easy to create an account if you dont have one. Go to [email or web address] and click on Create Your Account. Then, follow the directions to complete the online form. Youll be asked for your [facility] number which you can find at the top of this document. Your Goals/Additional instructions: Source: [facility] [employer] Document Id: [id number] HER LOOKOUT TOWER Miscellaneous - Cain Berger M.D. - 07/22/2016 10:11 AM CST Ambulatory Discharge Medication List [facility] [address], [address] [place], [place] [phone] Visit Information Name: HATTIE BRENNER [facility] Number: [phone] Current Date: 07/22/2016 10:11:07 Attending Provider: CAIN BERGER MD Primary Care Provider: DOUG LEWIS PA-C HATTIE BRENNER has been given the following list of medications: Your Medications It is important to take your medications as directed. Use a pill box or chart to help remind you to take your medications. Please let your doctor or nurse know if you have problems taking your medications. Medication/Strength How to Take Indications/Special Instructions/Comments/Notes for Patient Medication Changes/Routing *aspirin (aspirin) 81 mg, Oral, once a day bifidobacterium-lactobacillus (Probiotic Formula) 1 cap, Oral, once a day Misc Prescription (Misc Prescription) Tumeric one tablet daily multivitamin (Vitamin B Complex oral tablet) 1 Tablet(s), Oral, once a day multivitamin with minerals (Calcium, Magnesium and Zinc oral tablet) 1 Tablet(s), Oral, once a day omega-3 polyunsaturated fatty acids (Fish Oil 1000 mg oral capsule) 1 cap, Oral, three times a day thyroid desiccated ([place] Thyroid 60 mg oral tablet) 1 Tablet(s), Oral, once a day * You have let us know that you are not taking this medication as listed. Please talk with your primary care provider or the health care provider who prescribed the medication as soon as possible. Stop Taking the Following Medications: Medication list as of 07-22-16 10:11 Attention: If you have any medications at home that are not on this list, DO NOT take them until youcontact your provider for clarification. Give a copy of your medication list to your primary care provider. Update your medication list any time medications or doses are changed and carry your medication list at all times in case of emergency. Electronically Signed By: CAIN BERGER MD Signed On:22-JUL-2016 10:11:05 Additional Information: Source: [facility] [employer] Document Id: [id number] HER LOOKOUT TOWER Miscellaneous - Swetha Diaz COMT - 07/22/2016 9:59 AM CST Adult Buzzsaw Operator Intake/History Adult Buzzsaw Operator Intake/History Entered On: 07/22/2016 10:00 WATCHER LOOKOUT TOWER Performed On: 07/22/2016 9:59 WATCHER LOOKOUT TOWER by SWETHA DIAZ Intake Chief Complaint : sent by Dr. Abbott for possible glaucoma Height : 170 cm(Converted to: 5 ft 7 inch(es), 67 inch(es)) SWETHA DIAZ - 07/22/2016 9:59 WATCHER LOOKOUT TOWER General Info Information Given By : Patient Languages : Nepali Is Patient Female and 13-50 no hysterectomy : Yes Status : Patient denies Are you ? : No SWETHA DIAZ - 07/22/2016 9:59 WATCHER LOOKOUT TOWER Subjective Pain Symptoms : No SWETHA DIAZ - 07/22/2016 9:59 WATCHER LOOKOUT TOWER Dependent Habits Exposure to Tobacco Smoke : Other: never Smoking Status : Never smoker Tobacco 2A : No Tobacco Use/Currently Using : No Tobacco Use/Last 30 Days : No Tobacco Use/Last 12 months : No SWETHA DIAZ - 07/22/2016 9:59 WATCHER LOOKOUT TOWER Caffeine Use Grid Caffeine Use : None SWETHA DIAZ - 07/22/2016 9:59 WATCHER LOOKOUT TOWER Recreational Drug Use Grid Drug Use : None SWETHA DIAZ - 07/22/2016 9:59 WATCHER LOOKOUT TOWER Source: [facility] [employer] Document Id: [id number] WATCHER LOOKOUT TOWER!25 HER LOOKOUT TOWER Miscellaneous - Cain Berger M.D. - 07/22/2016 12:00 AM CST [id number] July 22, 2016 ADELE ABBOTT O[facility] [address] [address] RE: Hattie Brenner : 1980 Dear Kareem: I had the pleasure of seeing Hattie Brenner regarding optic cupping on both eyes. As you recall, you saw her for a routine eye examination and were concerned about the appearance of her optic nerves. She has no family history of glaucoma, and she has normal intraocular pressures. On examination in clinic dated 07/22/2016, her corrected visual acuity measured 20/20 both eyes. Slit-lamp examination revealed clear corneas with deep, quiet chambers. The lenses were clear. The fundus examination showed moderate cupping with pink nerves and no notching or hemorrhages. The OCT study,which I am sending you in a separate mailing, is within normal limits in both eyes. The pressures measured 10 right eye and 12 left eye. Hattie has physiologic cupping of the optic nerves but no evidence of glaucoma. Thanks again for involving me in her care. Sincerely, Cain Berger M.D. Department of Ophthalmology [address] [place] [address] aos Electronically Signed By: CAIN BERGER MD On: 08/03/2016 07:46 PM Source: [facility] MHSDOLBEYNONRADSYS Document Id: [id number] HER LOOKOUT TOWER documented in this encounter Plan of Treatment Not on filedocumented as of this encounter Visit Diagnoses Not on filedocumented in this encounter
--- OUTSIDE RECORDS SUMMARY | 2022-05-04 10:31 | XMS_ITS | Encounter Summary ---
:1980 Author Organization [facility] Address [address] [place] [address] Care Team Providers Name Role Phone Laureen [place] D.O. Primary Care Provider [phone] Encounter Details Date Type Department Care Team Description 07/18/2021 Orders Only Department of Family Eugene Abad M.D. Medicine, [facility], [address] [place] [address] [place] [address] [phone] Social History Tobacco Use Types Packs/Day Years [...] on filedocumented in this encounter Care Teams Street Light Inspector Relationship Specialty Start Date End Date Laureen Montana D.O. PCP - General Family Medicine 09/27/20 [address] [phone] documented as of this encounter
--- OUTSIDE RECORDS SUMMARY | 2022-05-04 10:31 | XMS_ITS | Encounter Summary ---
:1980 Author Organization [facility] Address [address] [place] [address] Care Team Providers Name Role Phone Laureen Montana D.O. Primary Care Provider [phone] Encounter Details Date Type Department Care Team Description 11/25/2020 Hospital Encounter Department of Laureen Montana Fatigue Laboratory Medicine in [address]ás Orellana, [place] [phone] (Wo rk) Social History Tobacco Use Types [...] Sig Dispensed Refills Start Date End Date unjyjrz-rvuijmvqr-mflt Take by mouth. 0 333-133-5 mg tablet [...] mouth daily. documented as of this encounter Miscellaneous Notes Result Encounter Note - Laureen Montana D.O. - 11/26/2020 10:39 AM CDT mychart sent documented in this encounter Plan of Treatment Not on filedocumented as of this encounter Procedures Procedure Name Priority Date/Time Associated Diagnosis Comme nts THYROID FUNCTION Routine 11/25/2020 4:11 PM Fatigue Resul ts for this CASCADE, S CDT procedure are i n the results section. CBC WITHOUT Routine 11/25/2020 4:11 PM Fatigue Results f or this DIFFERENTIAL, B CDT procedure ar e in the results section. FERRITIN, S Routine 11/25/2020 4:11 PM Fatigue Results f or this CDT procedure are i n the results section. documented in this encounter Results Ferritin (11/25/2020 4:11 PM CDT) P athologist Signature Ferritin, S 67 6 - 175 11/25/2020 [facility] mcg/L 9:44 PM CDT Comment: Biotin has been identified by the dionicio elam as a potential interfering substance. ??Higher concentr ations of biotin may be found in multivitamins, hair/nail supple ments, and workout supplements. ??If the result does not ma [facility] clinical observations, repeat testing after patient refrains fr om the use of supplements for at least 12 hours. Specimen Anatomical Collection Method Collection Time Receive d Time (Source) Location / / Volume Laterality Blood (Blood, 11/25/2020 4:11 PM 11/26/19 21 7:51 Venous) CDT PM CDT Laureen Montana D.O. LAB BLOOD ADD-ON Performing Organization Address City/State/ZIP Code Phon e Number [facility]- [address] [place] [address] [place], [place] [address] [place] [address] System in [address] CBC without Differential (11/25/2020 4:11 PM CDT) athologist Signature Hemoglobin 13.7 11.6 - 11/25/2020 [facility] 15.0 g/dL 8:10 PM CDT Hematocrit 41.7 35.5 - 11/25/2020 [facility] 44.9 % 8:10 PM CDT Erythrocytes 4.62 3.92 - 11/25/2020 [facility] 5.13 8:10 PM CDT x10(12)/L MCV 90.3 78.2 - 11/25/2020 [facility] 97.9 fL 8:10 PM CDT RBC Distrib Width 12.2 12.2 - 11/25/2020 [facility] 16.1 % 8:10 PM CDT Platelet Count 191 157 - 371 11/25/2020 [facility] x10(9)/L 8:10 PM CDT Leukocytes 5.2 3.4 - 9.6 11/25/2020 [facility] x10(9)/L 8:10 PM CDT Specimen Anatomical Collection Method Collection Time Receive d Time (Source) Location / / Volume Laterality Blood (Blood, 11/25/2020 4:11 PM 11/26/19 21 7:51 Venous) CDT PM CDT Laureen Monatna D.O. LAB BLOOD ADD-ON Performing Organization Address City/State/ZIP Code Phon e Number [facility]- [address] [place] [address] [place] [address] System in [address] Thyroid Function [place] (11/25/2020 4:11 PM CDT) athologist Signature TSH, Sensitive 2.5 0.3 - 4.2 11/25/2020 [facility] mIU/L 9:44 PM CDT Specimen Anatomical Collection Method Collection Time Receive d Time (Source) Location / / Volume Laterality Blood (Blood, 11/25/2020 4:11 PM 11/26/19 21 7:51 Venous) CDT PM CDT Laureen Montana D.O. LAB BLOOD ADD-ON Performing Organization Address City/State/ZIP Code Phon e Number [facility]- [address] [place], [place] [address] [place] [address] System in [place] [address] documented in this encounter Visit Diagnoses Diagnosis Fatigue documented in this encounter Care Teams Office Asst Relationship Specialty Start Date End Date Laureen Montana D.O. PCP - General Family Medicine 09/27/20 [address] [place] [address] documented as of this encounter
--- OUTSIDE RECORDS SUMMARY | 2022-05-04 10:31 | XMS_ITS | Encounter Summary ---
:1980 Author Organization [facility] Address [address] [place] [address] Care Team Providers Name Role Phone Laureen Montana D.O. Primary Care Provider [phone] Reason for Visit Reason Comments Chest Pain Encounter Details Date Type Department Care Team Description 02/27/2021 Nurse Triage Department of Family German Beard R.N. Chest Pain Medicine, [facility], [address] in [place], [place] [address] [facility] [address] [place] [address] [phone] Social History Tobacco Use Types Packs/Day Years [...] on file documented as of this encounter Miscellaneous Notes Telephone Encounter - Lilliana Beard R.N. - 02/27/2021 12:36 PM CDT Chief Complaint / Reason for Call Patient is a 40 y.o. female calling regarding Chest Pain. Assessment Concern: Sharp neck pains on the left side that go into head, hands goes numb. Burning pain goes down into her left chest, takes her breath away. Neck pain is worse at night, then intermittent during the day. Chest pain has now resolved. Present for: Head and neck pain intermittent for a couple months, Chest pain started today Home cares tried: Icy hot Calling to request: Appointment The recommended disposition is See a health care provider within 24 hours. Patient was warm transferred to Circle at the clinic for further assistance. Reason for Disposition ??? Numbness in an arm or hand (i.e., loss of sensation) Protocols used: NECK PAIN OR [id number] documented in this encounter Plan of Treatment Not on filedocumented as of this encounter Visit Diagnoses Not on filedocumented in this encounter Care Teams Formula Room Worker Relationship Specialty Start Date End Date Laureen Montana D.O. PCP - General Family Medicine 09/27/20 [address] [place] [address] documented as of this encounter
--- OUTSIDE RECORDS SUMMARY | 2022-05-04 10:31 | XMS_ITS | Encounter Summary ---
:1980 Author Organization [facility] Address [address] [place] [address] Care Team Providers Name Role Phone Unavailable Primary Care Provider Unavailable Encounter Details Date Type Department Care Team Description 11/22/2014 Hospital Encounter HX [facility] Dewey Lawrence, ALEXEY, C.N.P., D. N.P. [address] [place] [phone] (Wo rk) Social History Tobacco Use Types [...] - - Height 170 cm (5' 6.93) 11/22/2014 1:31 PM CDT Body Mass Index - - documented in this encounter Medications at Time of Discharge Medication Sig Dispensed Refills Start Date End Date tetrahydrozoline (Visine) 0.05 1 drop as needed. 0 08/26/2008 % ophthalmic solution documented as of this encounter Miscellaneous Notes Miscellaneous - Conversion, Historical Provider Ser - 11/22/2014 11:59 PM CDT Coding Summary-Paper Based CODING DATE: 11/27/2014 FINAL [facility] STATUS: * Discharged to Home or Self Care PAYOR: [employer] ADMIT DX: 611.72 Lump or Mass in Breast REASON FOR VISIT DX: 611.72 Lump or Mass in Breast FINAL DX: PRINCIPAL: 611.72 Lump or Mass in Breast SECONDARY: 793.82 Inconclusive Mammogram PROCEDURES DOCTOR NAME DATE NOTE: The code number assigned matches the documented diagnosis and / or procedure in the patient's chart. However, the narrative phrase printed from the coding software may appear abbreviated, or result in slightly different terminology. Revised Coded By: BHAVANI PANDEY Revised Date Saved: 11/27/2014 09:35 am [facility] Document Id: [id number] Miscellaneous - Dewey Lawrence, ALEXEY, C.N.P. - 11/22/2014 3:41 PM CDT Results Notification Document Contains Addenda Addendum by FRANCY AMADO V on 23 November 2014 11:40:52 CDT Pt updated From: DEWEY LAWRENCE RN, INSTALLER INSPECTOR FINAL To: OR Family Medicine Nurse Randy; Sent: 11/22/2014 15:41:43 CDT Show up: 11/22/2014 15:42:00 CDT Subject: Results Notification please reassure pt breast exam is negative Results: Date Result Type Result Name 11/22/2014 15:25 Radiology US Breast Right [facility] Document Id: [id number] Electronically signed by [facility], [facility] Metal [employer] Viewer [id number] at 01/03/2017 4:02 PM CDT documented in this encounter Plan of Treatment Not on filedocumented as of this encounter Visit Diagnoses Not on filedocumented in this encounter
--- OUTSIDE RECORDS SUMMARY | 2022-05-04 10:31 | XMS_ITS | Clinical Summary ---
:1980 Author Organization [facility] Address [address] [place] [address] Care Team Providers Name Role Phone Laureen Montana D.O. Primary Care Provider [phone] Source Comments Patient records contain information from all sites at [facility]. For routine questions regarding patient records, call [phone] during business hours, M-F 8:00 AM - 5:00 PM Central Time. Record requests for emergency care only can be directed to [phone] at any time.[facility] Allergies Active Allergy Reactions Severity Noted Date Comments Paroxetine Other (see comments) High 07/23/2020 Made de pression worse, Suicidal Pollen Extracts Other (see comments) Medium 07/13/2019 Snee zing, itchy eyes Medications Medication Sig Dispensed Refills Start Date End Date Status Lactobac Take 1 capsule by 0 07/22/2016 A ctive no.30-Bifidobact no.4 mouth daily. 30 billion cell capsule,delayed release(DR/EC) cholecalciferol Take 1 capsule by 0 Active (VITAMIN D3) 2.5 mcg mouth. (100 Unit) tablet vehujqh-khpwggwrw-jros Take by mouth. 0 Active 333-133-5 mg tablet omega-3 fatty 1 capsule. 0 Activ e acids-fish oil 340-1,000 mg per capsule tetrahydrozoline 1 drop as needed. 0 08/26/2008 Active (Visine) 0.05 % ophthalmic solution polymyxin Administer 1 drop 10 mL 0 07/18/2021 A ctive B-trimethoprim into both eyes 4 (POLYTRIM) 10,000 unit- (four) times a 1 mg/mL ophthalmic day. Use for 7 solution days. thyroid, pork, 30 mg Take 1 tablet (30 90 tablet 3 09/02/2021 Active tablet mg total) by mouth daily. Active Problems Problem Noted Date Hypothyroidism 04/23/2015 Rhinitis Allergic 12/31/2005 Encounters Date Type Specialty Care Team Description 04/14/2022 Orders Only Laureen Montana D.O. Hy pothyroidism from Last 3 Months Immunizations Name Administration Dates Next Due HepB, Unspecified 09/27/2000, 09/08/1999, 03/29/1998 Influenza TIV (IM) 05/11/2011, 04/16/2009 Influenza, Seasonal, Injectable 05/11/2011, 04/16/2009 Td Preservative Free (TENIVAC, 03/31/2021, 01/12/2005 DECAVAC) Tdap 05/14/2014, 10/19/2011 influenza high dose (65 years or 07/18/2021 (Deferred: Patie nt Refused) older) (PF) Family History Medical History Relation Name Comments Breast cancer Aunt Diabetes Grandmother Relation Name Status Comments Aunt Grandmother Social History Tobacco Use Types Packs/Day Years [...] Assigned at Date Recorded Not on file Last Filed Vital Signs Vital Sign Reading Time Taken Comments Blood Pressure 117/77 07/18/2021 9:54 AM DEVELOPMENT COORDINATOR Pulse 86 07/18/2021 9:54 AM DEVELOPMENT COORDINATOR Temperature 36.6 ??C (97.9 ??F) 07/18/2021 9:54 AM DEVELOPMENT COORDINATOR Respiratory Rate 16 04/25/2015 9:31 AM CDT Oxygen Saturation 100% 07/18/2021 9:54 AM DEVELOPMENT COORDINATOR Inhaled Oxygen Concentration - - Weight 60.1 kg (132 lb 7.9 oz) 07/18/2021 9:54 AM DEVELOPMENT COORDINATOR Height 170.2 cm (5' 7) 07/23/2020 10:07 AM DEVELOPMENT COORDINATOR Body Mass Index 20.75 07/23/2020 10:07 AM DEVELOPMENT COORDINATOR Plan of Treatment Health Maintenance Due Date Last Done Comments HIV Screening 1980 Hepatitis C Screening 1980 COVID-19 Vaccine (#1) 1980 Cervical Cancer Screening 05/25/2021 05/25/2018 (Performed elsewhere), 04/25/2015, 01/16/2013, Additional history exists Depression Screening 08/09/2021 (Annual PHQ-2) Thyroid Stimulating Hormone 11/25/2021 11/25/2020, 08/27/19 21, (TSH) test for thyroid 07/08/2020, Additional function history exists Influenza Vaccine (#1) 2022 07/18/2021, 05/11/2011, 05/11/2011, Additional history exists Lipid (Cholesterol) 05/25/2023 05/25/2018, 04/25/2015, Screening 07/13/2014, Additional history exists DTaP,Tdap,and Td Vaccines 03/31/2031 03/31/2021, 05/14/2014 , (4 - Td or Tdap) 10/19/2011, Additional history exists Hepatitis B Vaccines Completed 09/27/2000, 09/08/1999, 03/29/1998 Pneumococcal vaccine (0-64 Aged Out No lo nger eligible years) based on patient 's age to complete this topic Insurance Payer Benefit Plan Subscriber ID Effective Dates Phone Address Type / Group [facility] [id number] 2017-[address]orentino [phone] [address] [address] PPO [place] [id number] [id number] (Home) [place] [phone] Care Teams Boss Miner Relationship Specialty Start Date End Date Laureen Montana D.O. PCP - General Family Medicine 09/27/20 [address] [place] [address]
--- OUTSIDE RECORDS SUMMARY | 2022-05-04 10:31 | XMS_ITS | Encounter Summary ---
:1980 Author Organization [facility] Address [address] [place] [address] Care Team Providers Name Role Phone Laureen Montana D.O. Primary Care Provider [phone] Reason for Visit Reason Comments Follow-up Patient called to complete 6 month follow-up PROMIS-CAT questionnaires to collect Spine PROs. Encounter Details Date Type Department Care Team Description 10/10/2021 Clinical Department of Forrest Mann-up (Lorna justin Communication Spine in Cris Jade called to complete [address], [address] [place] [address] month follow-up [place], [place] PROMIS-CAT [address] [place] [phone] questionnaires to [place], [place] [phone] collect Spine PROs.) [phone] (Work) [phone] Social History Tobacco Use Types Packs/Day Years [...] this encounter Miscellaneous Notes Telephone Encounter - Cris Mann - 10/10/2021 9:26 AM CST Patient called to complete 6 month follow-up PROMIS-CAT questionnaires to collect Spine PROs. AGENT documented in this encounter Plan of Treatment Not on filedocumented as of this encounter Visit Diagnoses Not on filedocumented in this encounter Care Teams Green Pipefitter Relationship Specialty Start Date End Date Laureen Montana D.O. PCP - General Family Medicine 09/27/20 [address] [place] [address] documented as of this encounter
--- OUTSIDE RECORDS SUMMARY | 2022-05-04 10:31 | XMS_ITS | Encounter Summary ---
:1980 Author Organization [facility] Address [address] [place] [address] Care Team Providers Name Role Phone Unavailable Primary Care Provider Unavailable Encounter Details Date Type Department Care Team Description 02/26/2015 Hospital Encounter HX [facility] Мария Crabtree M.D. [address] [place] [address] (Wo rk) Social History Tobacco Use [...] Sign Reading Time Taken Comments Blood Pressure 114/68 02/26/2015 9:21 AM CDT Pulse 76 02/26/2015 9:21 AM CDT Temperature - - Respiratory Rate 16 02/26/2015 9:21 AM CDT Oxygen Saturation - - Inhaled Oxygen Concentration - - Weight - - Height 170 cm (5' 6.93) 02/26/2015 9:21 AM CDT Body Mass Index - - documented in this encounter Medications at Time of Discharge Medication Sig Dispensed Refills Start Date End Date tetrahydrozoline (Visine) 0.05 1 drop as needed. 0 08/26/2008 % ophthalmic solution documented as of this encounter Progress Notes David Crabtree M.D. - 02/26/2015 9:13 AM CDT FM-LE The patient has been followed by OLEGARIO Blanco, since 2001. In the past she has problems with headaches and those resolved. She now complains of tingling in both the hands as well as tingling in thelegs. She is the mother of 2 children, a son 5 years old and daughter 3 years old. She states she has got poor circulation and that she has read everything about it. Her hands get very cold and has to place them in hot water. She also has got tenderness in the costochondral junctions on the right side both front and the back, pain in the right kidney region in the back. No history of any injuries, etc. In March of 2014 her TSH was found to be elevated to 10.79. Since then, that has been kept in control. She used to have migraine headaches in the past in early 1999, and those have not recurred. Used to see a neurologist then. Patient is otherwise active. She jogs 3 miles per day. SYSTEMIC REVIEW Negative except for above. PHYSICAL EXAMINATION GENERAL: A 34-year-old, well-developed, well-nourished lady who is in no acute distress. VITAL SIGNS: Her temperature is 37.2 degrees. Pulse rate 76, respirations 16, blood pressure 114/68.Oxygen saturation on room air 100%. Her height is 170 cm. HEENT: Normocephalic scalp. Ears are normal. Eyes appear normal. The nose is clear. The tongue is moist. The throat is clear. NECK: Supple. Neck veins are not engorged. Thyroid is not enlarged. No lymphadenopathy. CHEST: Bilaterally symmetrical. Both heart sounds heard clearly. There are no murmurs. She does havetenderness over the costochondral junction both front and back particularly on the right side at the2nd, 3rd and 4th. Heart sounds are completely normal. She has got mild tenderness over the right renal angle. MUSCULOSKELETAL: Spine is negative. There is mild tenderness over the mid trapezius point. Pressure near the shoulder causes numbness, and she feels numbness in the hand. The shoulder itself is normal. Elbows are normal. There is no tenderness over the wrist joint. Thereis no thenar or hypothenar atrophy. IMPRESSION/REPORT/PLAN 1. Cervical radiculopathy. 2. Cold intolerance. 3. Costochondritis of the chest wall. 4. May have gastroesophageal reflux disease and explained. She does have some tenderness in the epigastrium as well at this time. DISCUSSION The symptoms suggest carpal tunnel syndrome, but she does have the same symptoms when pressed on theshoulder on the right side. Also may have cervical disk problem. Need an EMG. Review of the chart shows the patient had the numbness in the right hand since January 2013 when Jolene Li saw her. She has got hypothyroidism which is in very good control. Explained about the GERD problem she must keep the head of the bed elevated and take some Zantac or take her Prilosec daily. Continue the thyroid medication. Thyroid replacement. She has got tendernessin the right renal angle. Must drink plenty of fluids 80 ounces daily mixed. Continue Claritin daily. Can take Tylenol on an as-needed basis for chest wall pain. She will follow up with OLEGARIO Blanco. David Crabtree M.D./danyelle cc: Karlos Blnaco [facility] [place] [address] Electronically Signed By: DAVID CRABTREE MD On: 03/03/2015 01:15 PM Source: [facility] [id number] Document Id: [id number] documented in this encounter Miscellaneous Notes Miscellaneous - Kaden Hart, L.P.N. - 02/26/2015 9:21 AM CDT Adult Home Child Care Provider Intake/History Adult Home Child Care Provider Intake/History Entered On: 02/26/2015 9:23 CDT Performed On: 02/26/2015 9:21 CDT by KADEN HART RN [facility] Intake Chief Complaint : Numbness/tingling in both hands. Onset of Symptoms : Symptoms increasing x1wk. Ambulatory Intake Additional Information : Occasional numbness and tingling in legs. Temperature Core : 37.2 DegC(Converted to: 99.0 DegF) Peripheral Pulse Rate : 76 /min Respiratory Rate : 16 /min Systolic Blood Pressure : 114 mmHg Diastolic Blood Pressure : 68 mmHg NIBP Mean : 83 mmHg BP Location : Left upper extremity SpO2 : 100 % Oxygen Therapy : Room air Height : 170 cm(Converted to: 5 ft 7 inch(es), 67 inch(es)) KADEN HART [facility] - 02/26/2015 9:21 CDT General Info Information Given By : Patient Preferred Communication Mode : Verbal Languages : Jordanian Is Patient Female and 13-50 no hysterectomy : Yes Status : Patient denies Are you ? : No KADEN HART [facility] - 02/26/2015 9:21 CDT Subjective Pain Symptoms : No KADEN HART [facility] - 02/26/2015 9:21 CDT Dependent Habits Tobacco Use/Currently Using : No Exposure to Tobacco Smoke : Other: never Smoking Status : Never smoker Alcohol Use : No KADEN HART [facility] - 02/26/2015 9:21 CDT Caffeine Use Grid Caffeine Use : None KADEN HART [facility] - 02/26/2015 9:21 CDT Recreational Drug Use Grid Drug Use : None KADEN HART [facility] - 02/26/2015 9:21 CDT Source: [employer] Document Id: [id number] CDT!35 documented in this encounter Plan of Treatment Not on filedocumented as of this encounter Visit Diagnoses Not on filedocumented in this encounter
--- OUTSIDE RECORDS SUMMARY | 2022-05-04 10:31 | XMS_ITS | Encounter Summary ---
:1980 Author Organization [facility] Address [address] [place] [address] Care Team Providers Name Role Phone Laureen Montana D.O. Primary Care Provider [phone] Encounter Details Date Type Department Care Team Description 10/09/2020 Orders Only [facility] Laureen Montana, Screening Lipid; D.O. Hypothyroidism [address] [place] [address] (Wo rk) Social History Tobacco Use [...] as of this encounter Visit Diagnoses Diagnosis Screening Lipid Hypothyroidism documented in this encounter Care Teams Compliance Assistant Relationship Specialty Start Date End Date Laureen Montana D.O. PCP - General Family Medicine 09/27/20 [address] [place] [address] documented as of this encounter
--- OUTSIDE RECORDS SUMMARY | 2022-05-04 10:31 | XMS_ITS | Encounter Summary ---
:1980 Author Organization [facility] Address [address] [place] [address] Care Team Providers Name Role Phone Laureen Montana D.O. Primary Care Provider [phone] Encounter Details Date Type Department Care Team Description 10/08/2021 [facility] Hypothyroidism D.ODex [address] [place], [place] [address] (Wo rk) Social History [...] Hypothyroidism documented in this encounter Care Teams Supervisor Dyer Relationship Specialty Start Date End Date Laureen Montana D.O. PCP - General Family Medicine 09/27/20 [address] [place] [address] documented as of this encounter
--- OUTSIDE RECORDS SUMMARY | 2022-05-04 10:31 | XMS_ITS | Encounter Summary ---
:[address] [facility] Address [address] [place] [address] Care Team Providers Name Role Phone Laureen Montana D.O. Primary Care Provider Reason for Visit Reason Comments Conjunctivitis Encounter Details Date Type Department Care Team Description 07/18/2021 Nurse Triage Department of [facility] Bre Fernandes C onjunctivitis Medicine, [facility], in [place], [address] [phone] Social History Tobacco Use Types Packs/Day Years [...] this encounter Miscellaneous Notes Telephone Encounter - Bre Fernandes RSabra - 07/18/2021 8:14 AM CST COVID-19 Nurse Line Screening ASSESSMENT Initial Screening Pathway Select appropriate pathway: : Adult In the last 48 hours, have you had a fever* OR symptoms that are unrelated to a preexisting illness?: New sore throat COVID Asymptomatic Screening Have you had close contact* with a person who has a LABORATORY CONFIRMED case of COVID-19 in the past 14 days?: No (Continue Screening) Have you tested positive for COVID-19 in the last 90 days?: No (Continue Screening) Have you been advised to undergo testing or are you requesting testing?: No, testing for COVID-19 isnot indicated (End Screening) Symptom Onset Date of symptom onset: 07/13/21 Testing Recommendation Endpoint Is testing recommended? : Not recommended to test Further Triage Needs Any further triage needs? : Yes, transferring to nurse triage line for additional symptom evaluation PLAN Endpoint recommendation: Patient had COVID 19 in the past 45 days. Asymptomatic without exposure Carepoints: If you have tested positive for COVID- 19 within 90 days and have had a new exposure to someone positive with COVID-19, you do not need to quarantine unless requested by public health authority OR you become symptomatic (fever, cough, shortness of breath or respiratory distress, sore throat, diarrhea, nausea, vomiting, chills, muscle aches, repeated shaking with chills, headache, loss of smell, or change or loss of taste sensation). Patient agreeable to plan of care: Yes The following references were used: [facility] novel coronavirus (COVID- 19) resources BUSINESS DEVELOPMENT OFFICER Telephone Encounter - Bre Fernandes R.N. - 07/18/2021 8:08 AM CST Chief Complaint / Reason for Call Patient is a 41 y.o. female calling regarding Conjunctivitis. Assessment Home cares tried: Rest, neti pot. Calling to request: Advice. The recommended disposition is See a health care provider within 3 days. Warm transfer to [facility] in scheduling. Eye discharge: yellow bilateral eyes Onset: Last week. Redness of sclera: slight Eye lids: slight eye lid swelling on left eye. Vision: cloudy this morning but has now subsided. Pain: Denies Contact lenses: Denies Other symptoms: runny nose and sinus congestion. Reason for Disposition ? ? [1] Sinus congestion (pressure, fullness) AND [2] present > 10 days Protocols used: SINUS PAIN OR [id number] Care Advice Patient/Caregiver understands and will follow care advice?: Yes, able to teach back SEE PCP WITHIN 3 DAYS: * You need to be seen within 2 or 3 days. * PCP VISIT: Call your doctor (or PASSPORT APPLICATION EXAMINER/PA) during regular office hours and make an appointment. A clinic or urgent care center are good places to go for care if your doctor's office is closed or you can't get an appointment. NOTE: If office will be open tomorrow, tell caller to call then, not in 3 days. * IF PATIENT HAS NO PCP: A clinic or urgent care center are good places to go for care if you do nothave a primary care provider. NOTE: Try to help caller find a PCP for future care (e.g., use a physician referral line). Having a PCP or 'medical home' means better long-term care. NASAL WASHES FOR A STUFFY NOSE: * Introduction: Saline (salt water) nasal irrigation (nasal wash) is an effective and simple home remedy for treating stuffy nose and sinus congestion. The nose can be irrigated by pouring, spraying, or squirting salt water into the nose and then letting it run back out. * How it Helps: The salt water rinses out excess mucus and washes out any irritants (dust, allergens) that might be present. It also moistens the nasal cavity. * Methods: There are several ways to irrigate the nose. You can use a saline nasal spray bottle (available rxjz-oaw-nzwpdcw), a rubber ear syringe, a medical syringe without the needle, or a NETI POT. NASAL DECONGESTANTS FOR A VERY STUFFY NOSE: * MOST PEOPLE DO NOT NEED TO USE THESE MEDICINES. * If your nose feels blocked, you should try using nasal washes first. * If you have a very stuffy nose, nasal decongestant medicines can shrink the swollen nasal mucosa and allow for easier breathing. If you have a very runny nose, these medicines can reduce the amount of drainage. They may be taken as pills by mouth or as a nasal spray. * Pseudoephedrine (Sudafed): Available dkdk-rlz-ihgylin in pill form. Typical adult dosage is two 30mg tablets every 6 hours. * Oxymetazoline Nasal Drops (Afrin): Available msje-lnx-ascyety. Clean out the nose before using. Wanette each nostril once, wait one minute for absorption, and then spray a second time. * Phenylephrine Nasal Drops (Hilton-Synephrine): Available nwsg-dji-aulvdxe. Clean out the nose before using. Wanette each nostril once, wait one minute for absorption, and then spray a second time. * Read the package instructions on all medicines that you take. PAIN MEDICINES: * For pain relief, you can take either acetaminophen, ibuprofen, or naproxen. * They are ggsf-qhh-tnednoj (OTC) pain drugs. You can buy them at the drugstore. * ACETAMINOPHEN - REGULAR STRENGTH TYLENOL: Take 650 mg (two 325 mg pills) by mouth every 4 to 6 hours as needed. Each Regular Strength Tylenol pill has 325 mg of acetaminophen. The most you should take each day is 3,250 mg (10 pills a day). * ACETAMINOPHEN - EXTRA STRENGTH TYLENOL: Take 1,000 mg (two 500 mg pills) every 8 hours as needed. Each Extra Strength Tylenol pill has 500 mg of acetaminophen. The most you should take each day is 3,000 mg (6 pills a day). * IBUPROFEN (E.G., MOTRIN, ADVIL): Take 400 mg (two 200 mg pills) by mouth every 6 hours. The most you should take each day is 1,200 mg (six 200 mg pills), unless your doctor has told you to take more. * NAPROXEN (E.G., ALEVE): Take 220 mg (one 220 mg pill) by mouth every 8 to 12 hours as needed. You may take 440 mg (two 220 mg pills) for your first dose. The most you should take each day is 660 mg (three 220 mg pills a day), unless your doctor has told you to take more. CALL BACK IF: * Difficulty breathing (and not relieved by cleaning out nose) * You become worse. BUSINESS DEVELOPMENT OFFICER documented in this encounter Plan of Treatment Not on filedocumented as of this encounter Visit Diagnoses Not on filedocumented in this encounter Care Teams Retail Sales Teammate Relationship Specialty Start Date End Date Laureen Montana D.O. PCP - General Family Medicine 09/27/20 [place] [phone] documented as of this encounter
--- OUTSIDE RECORDS SUMMARY | 2022-05-04 10:31 | XMS_ITS | Encounter Summary ---
:1980 Author Organization [facility] Address [address] [place] [address] Care Team Providers Name Role Phone Unavailable Primary Care Provider Unavailable Encounter Details Date Type Department Care Team Description 04/25/2015 Hospital Encounter [facility]X [facility] Jolene Lawrence APRN, C.N.P., D. N.P. [address] [place] [phone] (Wo rk) Social History Tobacco Use [...] Sign Reading Time Taken Comments Blood Pressure 121/78 04/25/2015 9:31 AM CDT Pulse 80 04/25/2015 9:31 AM CDT Temperature - - Respiratory Rate 16 04/25/2015 9:31 AM CDT Oxygen Saturation - - Inhaled Oxygen Concentration - - Weight 60.6 kg (133 lb 9.6 oz) 04/25/2015 9:31 AM CDT Height 170 cm (5' 6.93) 04/25/2015 9:31 AM CDT Body Mass Index 20.97 04/25/2015 9:31 AM CDT documented in this encounter Medications at Time of Discharge Medication Sig Dispensed Refills Start Date End Date tetrahydrozoline (Visine) 0.05 1 drop as needed. 0 08/26/2008 % ophthalmic solution documented as of this encounter H&P Notes Jolene Lawrence APRN, C.N.P. - 04/25/2015 9:16 AM CDT [id number] CHIEF COMPLAINT/REASON FOR VISIT 1. Routine general medical exam. 2. Back pain and abdominal bloating. HISTORY OF PRESENT ILLNESS Hattie is a 34-year-old female who comes in today for her routine general medical exam. We did do a Pap smear today. Patient states her menstrual cycles have been regular. Her immunizations and health maintenance is otherwise up to date. Patient does have a personal history of hypothyroidism. Her main concern today is that when she starts running she has significant low back pain. Also has noted some significant abdominal bloating not just with eating but notes it to be much of the time throughout the day. She also has right hand going numb at times and has pain in her pelvic area especially noted to palpation. She denies any changes in her bowel or bladder habits. Denies any black or bloody colored stools and states that she has stools on a regular basis that are non constipated. MEDICATIONS [place] 60 mg by mouth daily. Aspirin 81 mg by mouth daily. Multivitamin. ALLERGIES No known drug allergies. SYSTEMS REVIEW As noted above. The patient denies any activity intolerance, chest pain, shortness of breath. No changes in bowel or bladder habits and no current infectious symptoms. She does note the pain in her lowback especially noted with activity such as running, also the abdominal bloating. She denies any particular nausea that accompanies it and she denies any significant diarrhea or increased bloating witheating. PAST MEDICAL/SURGICAL HISTORY Noteworthy for her ear surgery and hypothyroidism. SOCIAL HISTORY Patient is . She is a non tobacco and non alcohol user. She has 2 beautiful children. She does exercise on a regular basis. Age-appropriate counseling and risk factor reduction was provided. FAMILY HISTORY She has an aunt who had breast cancer. Grandmother with diabetes. Otherwise family history is essentially negative. PHYSICAL EXAMINATION VITAL SIGNS: Her blood pressure 121/78 with a pulse of 80, her weight is 60.6 kg. GENERAL: Patient appears nondistressed. SKIN: Warm and dry. HEENT: Examined and unremarkable. NECK: Supple. VESSELS: Carotids with normal upstrokes. Thyroid assessed and generous in size but otherwise negative. HEART: Regular rate and rhythm. LUNGS: Clear to auscultation. ABDOMEN: She has no organomegaly. Normoactive bowel sounds. She does have some significant tenderness in her lower pelvic area bilaterally. GENITALIA: Normal exterior genitalia. Cervix identified and Pap smear obtained. Her cervix was somewhat irritated with that and did have some bleeding noted. She did have some significant left adnexal tenderness compared to the right. Her uterus was very retroverted. EXTREMITIES: Without any edema. IMPRESSION/REPORT/PLAN 1. Routine general medical exam. Patient, if her Pap smear is normal, will need a repeat Pap about in 3 years. We did obtain a glucose and a lipid profile, which I did review with her, which was normal. 2. Hypothyroidism. We jens a TSH today, which was within normal range and discussed that with patient. We are going to make no changes at this time. 3. Abdominal bloating and pelvic pain. Today I would like to obtain an ultrasound of her pelvis. If that is completely normal, I will refer patient to Physical Therapy as I think that would be beneficial for her. Her uterus does sit a little retroverted which might be causing a little radiation of theback pain that she is currently having, but also she could have some back stretching exercises that will help that in addition. Patient is agreeable to that and if her pelvic ultrasound is abnormal will send to [facility]. Ready to learn. No apparent learning barriers were identified. Learning preferences include listening. Explained diagnosis and treatment plan. Patient/Child/Caregiver expressed understanding of the content. Sd BlancoNErnesto/danyelle Electronically Signed By: JOLENE LAWRENCE RN, CLIENT SERVICES DIRECTOR On: 04/29/2015 04:45 PM Source: [facility] [id number] Document Id: [id number] documented in this encounter Miscellaneous Notes Miscellaneous - Jolene Lawrence APRN, C.N.P. - 05/02/2015 4:45 PM CDT Normal Results Letter 02 May 2015 [address] BR[address]NER [address] [employer] [phone] Dear HATTIE BRENNER, I am pleased to report that your results from the following pap test is normal. Lets plan to repeat it again in 3 years. Please follow up with us as we discussed during your visit or sooner if you haveany concerns. If you have questions or concerns, please do not hesitate to call our office. Result Name Current Result Accession [id number] 04/25/2015 Final [facility] See Comment 04/25/2015 [facility] See Comment 04/25/2015 Spec Desc-[place] See Comment 04/25/2015 Sincerely, JOLENE LAWRENCE [address] [address] Electronic Signature Electronically Signed By: JOLENE LAWRENCE RN, CLIENT SERVICES DIRECTOR On: 02 May 2015 This document has images extracted. Source: [facility] TripShake Document Id: [id number] Electronically signed by Paul [facility] Tire Fixer [id number] at 01/04/2017 11:12 AM CDT Miscellaneous - Ketan Chacon L.P.N. - 04/25/2015 9:35 AM CDT Health Assessment Health Assessment Entered On: 04/25/2015 9:36 CDT Performed On: 04/25/2015 9:35 CDT by KETAN CHACON LPN Health Assessment Complete Health Assessment Complete or Modified : Annual Health Assessment Annual Health Assessment Completed : Yes KETAN CHACON LPN - 04/25/2015 9:35 CDT Nutrition Nutrition Risk Factors by History Adult : None KETAN CHACON LPN - 04/25/2015 9:35 CDT Functional Current Daily Living Assistance : None KETAN CHACON LPN - 04/25/2015 9:35 CDT Dependent Habits Tobacco Use/Currently Using : No Exposure to Tobacco Smoke : Other: never Smoking Status : Never smoker KETAN CHACON LPN - 04/25/2015 9:35 CDT Caffeine Use Grid Caffeine Use : None KETAN CHACON LPN - 04/25/2015 9:35 CDT Recreational Drug Use Grid Drug Use : None KETAN CHACON LPN - 04/25/2015 9:35 CDT Psychosocial Domestic Abuse Concerns : None Behavioral Health Screen/Safety Assmt : No Yazidi Preference : No Yazidi Affiliation KETAN CHACON LPN - 04/25/2015 9:35 CDT Advance Directive Advanced Directives : No Advance Directive Additional Information : No KETAN CHACON LPN - 04/25/2015 9:35 CDT Educ Needs Learning Style Preference Adult Grid Patient : Demonstration Family : None KETAN CHACON LPN - 04/25/2015 9:35 CDT Source: [facility] TripShake Document Id: [id number] CDT!29 Miscellaneous - Ketan Chacon L.PDexNDex - 04/25/2015 9:31 AM CDT Adult Quality Review Trainer Intake/History Adult Quality Review Trainer Intake/History Entered On: 04/25/2015 9:34 CDT Performed On: 04/25/2015 9:31 CDT by KETAN CHACON LPN Intake Temperature Core : 36.9 DegC(Converted to: 98.4 DegF) Peripheral Pulse Rate : 80 /min Respiratory Rate : 16 /min Heart Rhythm : Regular Systolic Blood Pressure : 121 mmHg Diastolic Blood Pressure : 78 mmHg NIBP Mean : 92 mmHg BP Location : Right upper extremity Blood Pressure Cuff Size : Regular Actual Weight : 60.6 kg(Converted to: 133 lb 10 oz) Weight Source : Standing scale Dosing Weight Clinic : 60.6 kg Clinic BSA : 1.69 Body Mass Index : 20.97 kg/m2 KETAN CHACON LPN - 04/25/2015 9:38 CDT Chief Complaint : Yearly physical horrible pain in back hands are going numb, abdominal pain Height : 170 cm(Converted to: 5 ft 7 inch(es), 67 inch(es)) KETAN CHACON LPN - 04/25/2015 9:31 CDT General Info Languages : Serbian Is Patient Female and 13-50 no hysterectomy : Yes Status : Patient denies Are you ? : No KETAN CHACON LPN - 04/25/2015 9:31 CDT Subjective Pain Symptoms : No KETAN CHACON LPN - 04/25/2015 9:31 CDT Dependent Habits Tobacco Use/Currently Using : No Exposure to Tobacco Smoke : Other: never Smoking Status : Never smoker Alcohol Use : No LAKHWINDER KETAN Jade RD MANAGER - 04/25/2015 9:31 CDT Caffeine Use Grid Caffeine Use : None KETAN CHACON RD MANAGER - 04/25/2015 9:31 CDT Recreational Drug Use Grid Drug Use : None KETAN CHACON RD MANAGER - 04/25/2015 9:31 CDT Source: [facility] POWERCHART Document Id: [id number] CDT!16 documented in this encounter Plan of Treatment Not on filedocumented as of this encounter Procedures Procedure Name Priority Date/Time Associated Diagnosis Comme nts THINPREP SCREEN HPV Routine 04/25/2015 10:00 AM R esults for this REFLEX CDT procedure are i n the results section. THYROID-STIMULATING Routine 04/25/2015 9:25 AM Re sults for this HORMONE-SENSITIVE CDT procedure are in (S-TSH) the results section. LIPID PANEL, S Routine 04/25/2015 9:10 AM Results for this CDT procedure are i n the results section. GLUCOSE, P Routine 04/25/2015 9:10 AM Results f or this CDT procedure are i n the results section. documented in this encounter Results Pathology ThinPrep Screen HPV Reflex (04/25/2015 10:00 AM CDT) [facility] Method Time Signature HXAccession [id number] [facility] HXFinal See Comment POWERCHART [facility] Comment: A. ??ThinPrep Pap Test Screen (Cervical/ Endocervical HPV >= 30 years old): Satisfactory for evaluation. Partially obscuring inflammation. Negative for intraepithelial lesion or m alignancy. High Risk HPV testing results are NEGATI VE. See specific genotype results below. HPV with Genotyping, PCR, ThinPrep: HPV High Risk Type 16, PCR: ??NEGATIVE HPV High Risk Type 18, PCR: ??NEGATIVE HPV other High Risk types, PCR: ??NEGATI VE Other High Risk HPV types include: ??31, 33, 35, 39, 45, 51, 52, 56, 58, 59, 66, and 68. [facility] See Comment POWERCHART Comment: Report electronically signed by Mata Soria, SCT([facility]) 05/02/2015 15:44 Interpreted by: Ketan Thao CT ([facility]) Specimen (Source) Anatomical Collection Method Collection Time Re ceived Time Location / / Volume Laterality Cervix/Endocervix 04/25/2015 10:00 AM CDT Oskar Ren APRN.N.P., D.N.P. LAB PAP PATHDX CJ CID Performing Organization Address City/State/ZIP Code Phon e Number POWERCHART Thyroid-Stimulating Hormone-Sensitive (s-TSH) (04/25/2015 9:25 AM CDT) P athologist Signature TSH 3.08 0.27 - 4.20 POWERCHART (Thyrotropin) MIUL Specimen (Source) Anatomical Collection Method Collection Time Re ceived Time Location / / Volume Laterality Blood 04/25/2015 9:25 AM CDT Oskar Ren APRN.N.P., D.N.P. LAB BLOOD ADD-ON Performing Organization Address City/State/ZIP Code Phon e Number POWERCHART Glucose (04/25/2015 9:10 AM CDT) P athologist Signature Glucose 100 70 - 139 POWERCHART MGDL Specimen (Source) Anatomical Collection Method Collection Time Re ceived Time Location / / Volume Laterality Blood 04/25/2015 9:10 AM CDT Jolene Lawrence APRN C.N.P., D.N.P. LAB BLOOD ADD-ON Performing Organization Address City/State/ZIP Code Phon e Number POWERCHART (ABNORMAL) Lipid Panel (04/25/2015 9:10 AM CDT) P athologist Signature Cholesterol, 78 <=199 MGDL POWERCHART Total Comment: 2014 National Lipid Association recommen dations for Total Cholesterol in adults ages 18 and up: Desirable <200 mg/dL Borderline high 200-239 mg/dL High 240 mg/dL 2014 National Lipid Association recommen dations for Total Cholesterol in children ages 2 to 17. Acceptable <170 mg/dL Borderline High 170-199 mg/dL High 200 mg/dL HX HDL 35 (L) >=50 MGDL POWERCHART Comment: 2014 National Lipid Association recommen dations for HDL-C in adults ages 18 and up: Low <40 mg/dL (Men) Low <50 mg/dL (Women) 2014 National Lipid Association recommen dations for HDL-C in children ages 2 to 17. Low <40 mg/dL Borderline Low 40-45 mg/dL Acceptable >45 mg/dL Triglycerides 59 <=149 MGDL POWERCHART Comment: 2014 National Lipid Association recommen dations for Triglycerides in adults ages 18 and up: Normal <150 mg/dL Borderline High 150-199 mg/dL High 200-499 mg/dL Very High 500 mg/dL 2014 National Lipid Association recommen dations for Triglycerides in children ages 2 to 9. Acceptable <75 mg/dL Borderline High 75-99 mg/dL High 100 mg/dL 2014 National Lipid Association recommen dations for Triglycerides in children ages 10 to 17. Acceptable <90 mg/dL Borderline High 90-129 mg/dL High 130 mg/dL Trigs >400mg/dL: Triglycerides >400 mg/ dL. Calculated LDL cholesterol is not valid. Non-HDL cholesterol may be used for risk assessment when triglycerides are >400mg/dL. Calculated LDL 31 <=129 MGDL POWERCHART Comment: 2013 National Lipid Association recommen dations for LDL-C in adults ages 18 and up: Desirable <100 mg/dL Above desirable 100-129 mg/dL Borderline high 130-159 mg/dL High 160-189 mg/dL Very High 190 mg/dL 2014 National Lipid Association recommen dations for LDL-C in children ages 2 to 17. Acceptable <110 mg/dL Borderline High 110-129mg/dL High 130 mg/dL LDL-C >190mg/dL: The markedly elevated LDL level is suggestive of a genetic condition such as familial hypercholesterolemia(FH) or familial defective apolipoprotein B-100 (FDB). Molecular genetic t esting for FH and FDB [facility]: FH/ADH Genetic Reflex Romero el (test ADHP). Acquired (non-genetic) causes of markedly increased LDL cholesterol include cholestatic liver disease due to the presence of LpX. If a genetic form of hypercholesterolemia is suspected, family studies including biochemical testing fo r lipids (total cholesterol,triglycerides, LDL cholesterol and HDL cholesterol) are recommended. ??Please contact the laboratory at or the on-line test catalog at [employer] for information about how to order these keysha ts or to speak with a genetic counselor. Further interpretation would require clinical information. Total Cholesterol/HDL Ratio 2 PO WERCHART Specimen (Source) Anatomical Collection Method Collection Time Re ceived Time Location / / Volume Laterality Blood 04/25/2015 9:10 AM CDT Jolene Lawrence APRN, C.N.P., D.N.P. LAB BLOOD ADD-ON Performing Organization Address City/State/ZIP Code Phon e Number POWERCHART documented in this encounter Visit Diagnoses Not on filedocumented in this encounter
--- OUTSIDE RECORDS SUMMARY | 2022-05-04 10:31 | XMS_ITS | Encounter Summary ---
:1980 Author Organization [facility] Address [address] [place] [address] Care Team Providers Name Role Phone Unavailable Primary Care Provider Unavailable Encounter Details Date Type Department Care Team Description 11/15/2014 Hospital Encounter HX [facility] Jolene Lawrence, ALEXEY, C.N.P., D. N.P. [address] [place] [phone] (Wo rk) Social History Tobacco Use [...] Sign Reading Time Taken Comments Blood Pressure 119/59 11/15/2014 10:51 AM CDT Pulse 78 11/15/2014 10:51 AM CDT Temperature - - Respiratory Rate 16 11/15/2014 10:51 AM CDT Oxygen Saturation - - Inhaled Oxygen Concentration - - Weight - - Height 170 cm (5' 6.93) 11/15/2014 10:51 AM CDT Body Mass Index - - documented in this encounter Medications at Time of Discharge Medication Sig Dispensed Refills Start Date End Date tetrahydrozoline (Visine) 0.05 1 drop as needed. 0 08/26/2008 % ophthalmic solution documented as of this encounter Progress Notes Jolene Lawrence, ALEXEY, C.N.P. - 11/15/2014 10:48 AM CDT [id number] CHIEF COMPLAINT/REASON FOR VISIT 1. Breast pain. 2. Multiple symptoms. HISTORY OF PRESENT ILLNESS Hattie is a very pleasant 34-year-old mother of 2 who comes in today with known history of hypothyroidism comes in today with concerns that she has noted she has been much more tired, forgetful. She states that she starts a sentence, forgets what she is saying, has difficulty with recall at times, tingling hands usually only when she is sleeping, sharp pains in her hands and arms at times, lower back discomfort, difficulty breathing only at times. Does not seem to be associated with activity nor doesit seem to be associated with food, chest discomfort, headaches in the back of her head, acne, lightheadedness at times especially with movement from a lying to a standing position, hard to focus, feeling crabby and impatient. She has muscle aching throughout her body especially noted in her back and her shoulders, sometimes her lower extremities with extra muscle aching also. She has most recently noted breast tenderness in her right breast for the past 2 days and noted a lump also on the right breast that she would like to have evaluated. She does have a paternal aunt who was diagnosed with breast cancer in her early 40s and at 51. MEDICATIONS Hills 15 mg 3 tablets daily. ALLERGIES No known drug allergies. SYSTEMS REVIEW As noted above. No fevers. No changes in bowel or bladder habits. No fevers. PAST MEDICAL/SURGICAL HISTORY Please see the EMR. PHYSICAL EXAMINATION VITAL SIGNS: Her blood pressure is 119/59 with a pulse of 78. GENERAL: Patient appears nondistressed. SKIN: Warm and dry. HEENT: Unremarkable. NECK: Thyroid with no masses or abnormalities. HEART: Regular rate and rhythm. LUNGS: Clear to auscultation. ABDOMEN: Soft. No organomegaly. BREAST: On her right breast, she does have some fibrocystic breast tissue there. Otherwise no other abnormalities identified. EXTREMITIES: Without any edema. IMPRESSION/REPORT/PLAN 1. Chronic fatigue. 2. Daily headaches. 3. Hypothyroidism. 4. Breast mass. 5. Myalgias. PLAN: I will go ahead and obtain an ultrasound of her breast and will call her with that result. Will proceed as necessary there. We will obtain some laboratory studies including a CRP, CBC, T3, T4 andTPO antibodies. Patient was only taking 2 of her Hills tablets, I explained to her that it is important that she takes 3. I think it is important to try to get her in euthyroid however, I do think many of these symptoms maybe related to anxiety. The patient was somewhat reluctant to hear that but as she thought about it, she feels this is a possibility. I will have her return and will readdress thaton her return visit. Once we kind of get her thyroid to a normal range. May need to restart her on Synthroid which I wish to do but at this point, patient would like to continue and stay with her Hills and is willing to take 3 tablets. Ready to learn. No apparent learning barriers were identified. Learning preferences include listening. Explained diagnosis and treatment plan. Patient/Child/Caregiver expressed understanding of the content. Karlos Blanco/danyelle Electronically Signed By: JOLENE LAWRENCE RN, LICENSED MORTICIAN On: 11/22/2014 07:59 AM Source: [facility] MHSDOLBEYNONRADSYS Document Id: [id number] documented in this encounter Nursing Notes Gregorio Connolly L.P.N. - 01/04/2015 11:52 AM CDT Thyroid Hattie called wondering why her throid medication was so expensive? Spoke with Abdirizak. States, Hills thyroid is an all natural thyroid, not synthetic like Levothyroxine. There is no generic.Hattie's cost is $28 a month. Explained to Hattie and she states, oh. I'm okay with that as long as I know it's all natural. That explaines why it is more expensive. Electronically Signed By: GREGORIO CONNOLLY LPN On: 01/04/2015 11:58 AM Source: [facility] POWERCHART Document Id: [id number] documented in this encounter Miscellaneous Notes Miscellaneous - Jolene Lawrence APRN, C.N.P. - 11/16/2014 1:31 PM CDT Normal Results Letter 16 November 2014 HATTIE BRENNER [address] [place] [id number] Dear HATTIE BRENNER, I am pleased to report that your results from the following diagnostic test(s) are unremarkable. Please follow up with us as we discussed during your visit or sooner if you have any concerns. If you have questions or concerns, please do not hesitate to call our office. Result Name Current Result Previous Result Normal Range CRP (mg/dL) <0.1 11/15/2014 0.0 - 0.8 CK (U/L) 96 11/15/2014 21 - 232 T4 Total-Cruz (mcg/dL) 5.8 11/15/2014 4.5 - 11.7 - T3 Free-Cruz (pg/mL) 2.6 11/15/2014 2.0 - 3.5 - Hgb (g/dL) 12.0 11/15/2014 12.4 06/04/2014 12.0 - 15.5 Hct (%) 37.3 11/15/2014 38.4 06/04/2014 34.9 - 44.5 WBC (x10(9)/L) 5.0 11/15/2014 6.9 06/04/2014 3.4 - 10.5 RBC (x10(12)/L) 4.12 11/15/2014 4.26 06/04/2014 3.90 - 5.03 MCV (fL) 90.5 11/15/2014 90.1 06/04/2014 82.0 - 98.0 RDW (%) 12.6 11/15/2014 (L) 11.8 06/04/2014 11.9 - 15.5 Platelet (x10(9)/L) 210 11/15/2014 206 06/04/2014 150 - 450 Neutro Absolute (10(9)/L) 3.21 11/15/2014 4.55 06/04/2014 1.70 - 7.00 Lymph Absolute (x10(9)/L) 1.09 11/15/2014 1.44 06/04/2014 0.90 - 2.90 [place] Absolute (x10(9)/L) 0.37 11/15/2014 0.68 06/04/2014 0.30 - 0.90 Eos Absolute (x10(9)/L) 0.30 11/15/2014 0.24 06/04/2014 0.05 - 0.50 Baso Absolute (x10(9)/L) 0.01 11/15/2014 0.01 06/04/2014 0.00 - 0.30 0Differential? Auto 11/15/2014 Auto 06/04/2014 TTG IgA-Cruz (unit/mL) <1.2 11/15/2014 <4.0 (Negative) - Sincerely, JOLENE LAWRENCE [address] [place] [id number] Electronic Signature Electronically Signed By: JOLENE LAWRENCE RN, LICENSED MORTICIAN On: 16 November 2014 This document has images extracted. Source: [facility] POWERCHART Document Id: [id number] Miscellaneous - Jolene Lawrence, ALEXEY, C.N.P. - 11/15/2014 11:50 AM CDT Ambulatory Patient Summary [address] [id number] Visit Information Name: OFE HATTIE PUSHPA [facility] Number: [id number] Current Date: 11/15/2014 11:50:46 Physicians Attending Provider: JOLENE LAWRENCE RN, LICENSED MORTICIAN Primary Care Provider: JOLENE LAWRENCE RN, LICENSED MORTICIAN HATTIE BRENNER has been given the following [...] Take Indications/Special Instructions/Comments/Notes for Patient Medication Changes/Routing aspirin (aspirin) 81 mg, Oral, once a day Misc Prescription (Misc Prescription) Tumeric one tablet daily *thyroid desiccated (Hills Thyroid 15 mg oral tablet) 3 Tablet(s), Oral, once a day * You have let us know that you are not taking this medication as listed. Please talk with your primary care provider or the health care provider who prescribed the medication as soon as possible. Stop Taking the Following Medications: Medication list as of 11-15-14 11:50 Attention: If you have any medications at home that are not on this list, DO NOT take them until youcontact your provider for clarification. Give a copy of your medication list to your primary care provider. Update your medication list any time medications or doses are changed and carry your medication list at all times in case of emergency. Electronically Signed By: JOLENE LAWRENCE RN, CNP Signed On:15-NOV-2014 11:49:27 Your Allergies & Intolerances Substance Reaction Symptoms Category Comments No Known Allergies Drug Your Problem List Problem Status Onset Comments Palpitations Active 04/24/2004 Numbness Active 07/16/2004 Allergy Seasonal Active 12/31/2005 None Active 01/16/2013 Hypothyroidism NOS Active Your Upcoming Appointments Date Time Location Provider No Appointments found Attention: Contact your local Clinic if further appointment detail needed. Your Goals/Additional instructions: Source: [facility] POWERCHART Document Id: [id number] Miscellaneous - Jolene Lawrence APRN, C.N.P. - 11/15/2014 11:50 AM CDT Ambulatory Discharge Medication List [address] [id number] Visit Information Name: HATTIE BRENNER [facility] Number: [id number] Visit Date: 11/15/2014 11:50:45 Attending Provider: JOLENE LAWRENCE RN, JUANY Primary Care Provider: JOLENE LAWRENCE RN, JUANY HATTIE BRENNER has been given the following list of medications: Your Medications It is important to take your medications as directed. Use a pill box or chart to help remind you to take your medications. Please let your doctor or nurse know if you have problems taking your medications. Medication/Strength How to Take Indications/Special Instructions/Comments/Notes for Patient Medication Changes/Routing aspirin (aspirin) 81 mg, Oral, once a day Misc Prescription (Misc Prescription) Tumeric one tablet daily *thyroid desiccated (Hills Thyroid 15 mg oral tablet) 3 Tablet(s), Oral, once a day * You have let us know that you are not taking this medication as listed. Please talk with your primary care provider or the health care provider who prescribed the medication as soon as possible. Stop Taking the Following Medications: Medication list as of 11-15-14 11:50 Attention: If you have any medications at home that are not on this list, DO NOT take them until youcontact your provider for clarification. Give a copy of your medication list to your primary care provider. Update your medication list any time medications or doses are changed and carry your medication list at all times in case of emergency. Electronically Signed By: JOLENE LAWRENCE RN, LICENSED MORTICIAN Signed On:15-NOV-2014 11:49:27 Additional Information: Source: [facility] POWERCHART Document Id: [id number] Miscellaneous - Ketan Chacon LDexPDexN. - 11/15/2014 10:51 AM CDT Adult Foreclosure Specialist Intake/History Adult Foreclosure Specialist Intake/History Entered On: 11/15/2014 10:55 CDT Performed On: 11/15/2014 10:51 CDT by KETAN CHACON LPN Intake Temperature Core : 37.1 DegC(Converted to: 98.8 DegF) Peripheral Pulse Rate : 78 /min Respiratory Rate : 16 /min Heart Rhythm : Regular Systolic Blood Pressure : 119 mmHg Diastolic Blood Pressure : 59 mmHg NIBP Mean : 79 mmHg BP Location : Left upper extremity Blood Pressure Cuff Size : Regular KETAN CHACON LPN - 11/15/2014 10:59 CDT Chief Complaint : Right breast tenderness question lump Height : 170 cm(Converted to: 5 ft 7 inch(es), 67 inch(es)) KETAN CHACON LPN - 11/15/2014 10:51 CDT General Info Languages : Slovak Is Patient Female and 13-50 no hysterectomy : Yes Status : Patient denies Are you ? : No KETAN CHACON [facility] - 11/15/2014 10:51 CDT Subjective Pain Symptoms : No CHACON, KETAN R [facility] - 11/15/2014 10:51 CDT Dependent Habits Tobacco Use/Currently Using : No Smoking Status : Never smoker CHACONYANDYKETAN R [facility] - 11/15/2014 10:51 CDT Tobacco Use Grid Last Use : never CHACONYANDYKETAN R [facility] - 11/15/2014 10:51 CDT Alcohol Use : No CHACONYANDYKETAN R [facility] - 11/15/2014 10:51 CDT Caffeine Use Grid Caffeine Use : None KETAN CHACON [facility] 11/15/2014 10:51 CDT Recreational Drug Use Grid Drug Use : None CHACONYANDYKETAN R [facility] 11/15/2014 10:51 CDT ID Screen Drug Resistant Organism : No Travel Within Last 21 Days : No Contact with someone with Ebola : No KETAN CHACON [facility] - 11/15/2014 10:51 CDT Source: [facility] Document Id: [id number]!11 documented in this encounter Plan of Treatment Not on filedocumented as of this encounter Procedures Procedure Name Priority Date/Time Associated Comments Diagnosis AUTOMATED DIFFERENTIAL, Routine 11/15/2014 11:59 Results for this B AM CDT procedure are i n the results section. TISSUE TRANSGLUTAMINASE Routine 11/15/2014 11:59 Results for this (TTG) AB, IGA, S AM CDT procedure a re in the results section. CBC WITH DIFFERENTIAL, B Routine 11/15/2014 11:59 Results for this AM CDT procedure are i n the results section. C-REACTIVE PROTEIN Routine 11/15/2014 11:59 Resul ts for this (CRP), S/P AM CDT procedure are i n the results section. T3 (TRIIODOTHYRONINE), Routine 11/15/2014 11:59 R esults for this FREE, S AM CDT procedure are i n the results section. T4 (THYROXINE), TOT Routine 11/15/2014 11:59 Resu lts for this ONLY, S AM CDT procedure are i n the results section. CREATINE KINASE (CK), S Routine 11/15/2014 11:59 Results for this AM CDT procedure are i n the results section. documented in this encounter Results Automated Differential (11/15/2014 11:59 AM CDT) athologist Signature Absolute 3.21 1.70 - POWERCHART Neutrophils 7.00 109L Lymphocytes 1.09 0.90 - POWERCHART 2.90 X109L Monocytes 0.37 0.30 - POWERCHART 0.90 X109L Eosinophils 0.30 0.05 - POWERCHART 0.50 X109L Absolute 0.01 0.00 - POWERCHART Basophil 0.30 X109L Specimen Anatomical Collection Method Collection Time Receive d Time (Source) Location / / Volume Laterality Blood 11/15/2014 11:59 11/15/2014 AM CDT 11:59 AM CDT Jolene Lawrence APRN C.N.P., D.N.P. LAB BLOOD ADD-ON Performing Organization Address City/State/ZIP Code Phon e Number POWERCHART CBC with Differential (11/15/2014 11:59 AM CDT) athologist Signature Leukocytes 5.0 3.4 - 10.5 POWERCHART X109L Erythrocytes 4.12 3.90 - POWERCHART 5.03 V7747N Hemoglobin 12.0 12.0 - POWERCHART 15.5 GDL Hematocrit 37.3 34.9 - POWERCHART 44.5 MCV 90.5 82.0 - POWERCHART 98.0 FL HX RDW 12.6 11.9 - POWERCHART 15.5 Platelet Count 210 150 - 450 POWERCHART X109L HXDifferential? Auto POWERCHART Specimen (Source) Anatomical Collection Method Collection Time Re ceived Time Location / / Volume Laterality Blood 11/15/2014 11:59 AM CDT Oskar Ren APRN.N.P., D.N.P. LAB BLOOD ADD-ON Performing Organization Address City/State/ZIP Code Phon e Number POWERCHART CK (Creatine Kinase) (11/15/2014 11:59 AM CDT) athologist Signature Creatine Kinase 96 21 - 232 UL POWERCHART (CK), S Specimen (Source) Anatomical Collection Method Collection Time Re ceived Time Location / / Volume Laterality Blood 11/15/2014 11:59 AM CDT Oskar Ren APRN.N.P., D.N.P. LAB BLOOD ADD-ON Performing Organization Address City/State/ZIP Code Phon e Number POWERCHART tTG (Tissue Transglutaminase), Antibody, IgA (11/15/2014 11:59 AM CDT) [facility] gist Method Time Signature Tissue <1.2 <4.0 POWERCHART Transglutaminase Ab, (Negative) IgA, S UNITML Comment: Test Performed by: [place] [address] Head Bone Grinder: Tomy Hernández II, M.D., Ph.D. Specimen (Source) Anatomical Collection Method Collection Time Re ceived Time Location / / Volume Laterality Blood 11/15/2014 11:59 AM CDT Oskar Ren APRN.N.P., D.N.P. LAB BLOOD ADD-ON Performing Organization Address City/[facility]/ZIP Code Phon e Number POWERCHART T4 (Thyroxine), Total Only (11/15/2014 11:59 AM CDT) athologist Signature T4 (Thyroxine), 5.8 4.5 - 11.7 POWERCHART Total Only, S MCGDL Comment: Test Performed by: [address] [address] Head Bone Grinder: Tomy Hernández II, M.D., Ph.D. Specimen (Source) Anatomical Collection Method Collection Time Re ceived Time Location / / Volume Laterality Blood 11/15/2014 11:59 AM CDT Oskar Ren APRN.N.P., D.N.P. LAB BLOOD ADD-ON Performing Organization Address City/State/ZIP Code Phon e Number POWERCHART T3 (Triiodothyronine), Free (11/15/2014 11:59 AM CDT) athologist Signature T3 2.6 2.0 - 3.5 POWERCHART (Triiodothyroni PGML ne), Free, S Comment: Test Performed by: [place] [address] Head Bone Grinder: Tomy Hernández II, M.D., Ph.D. Specimen (Source) Anatomical Collection Method Collection Time Re ceived Time Location / / Volume Laterality Blood 11/15/2014 11:59 AM CDT Jolene Lawrence APRN, C.N.P., D.N.P. LAB BLOOD ADD-ON Performing Organization Address City/[facility] Code Phon e Number POWERCHART CRP (C-Reactive Protein) (11/15/2014 11:59 AM CDT) P athologist Signature C-Reactive <0.1 0.0 - 0.8 POWERCHART Protein (CRP), MGDL S Specimen (Source) Anatomical Collection Method Collection Time Re ceived Time Location / / Volume Laterality Blood 11/15/2014 11:59 AM CDT Jolene Lawrence APRN, C.N.P., D.N.P. LAB BLOOD ADD-ON Performing Organization Address City/State/ZIP Code Phon e Number POWERCHART documented in this encounter Visit Diagnoses Not on filedocumented in this encounter
--- OUTSIDE RECORDS SUMMARY | 2022-05-04 10:31 | XMS_ITS | Encounter Summary ---
:1980 Author Organization [facility] Address [address] [place] [address] Care Team Providers Name Role Phone Laureen [place] D.O. Primary Care Provider [phone] Encounter Details Date Type Department Care Team Description 12/10/2021 Hospital Encounter Department of Huong [place] ecified Laboratory Medicine Elli [facility] Thyroid in [place], [address] [address] [facility] [address] [place], [place] [phone] (Work) [phone] Social History Tobacco Use Types Packs/Day Years [...] Sig Dispensed Refills Start Date End Date [id number] Take by mouth. 0 333-133-5 mg tablet [...] mg tablet Take 1 tablet (30 mg 90 tablet 3 09/02/2021 total) by mouth daily. documented as of this encounter Plan of Treatment Scheduled Orders Name Type Priority Associated Diagnoses Order S chedule Kit Collection Lab Routine Other Specified Disorders Of Once for 1 Occurrences Thyroid starting 2021 until 12/10/2021 documented as of this encounter Visit Diagnoses Diagnosis Other Specified Disorders Of Thyroid documented in this encounter Care Teams Military Professional Relationship Specialty Start Date End Date Laureen Montana D.O. PCP - General Family Medicine 09/27/20 [address] [place] [phone] documented as of this encounter
--- OUTSIDE RECORDS SUMMARY | 2022-05-04 10:31 | XMS_ITS | Encounter Summary ---
:1980 Author Organization [facility] Address [address] [place] [address] Care Team Providers Name Role Phone Unavailable Primary Care Provider Unavailable Encounter Details Date Type Department Care Team Description 11/19/2014 Hospital Encounter HX [facility] MRI Dewey Lawrence, MIKE RN, C.N.P., D.N.P. [address] [place], [place] [phone] (Wo rk) Social History [...] - - Height 170 cm (5' 6.93) 11/19/2014 1:30 PM CDT Body Mass Index - - documented in this encounter Medications at Time of Discharge Medication Sig Dispensed Refills Start Date End Date tetrahydrozoline (Visine) 0.05 1 drop as needed. 0 08/26/2008 % ophthalmic solution documented as of this encounter Miscellaneous Notes Miscellaneous - Dewey Lawrence APRN, C.N.P. - 11/20/2014 12:25 PM CDT Results Notification Document Contains Addenda Addendum by TARIQ BUSTILLOS on 20 November 2014 13:56:38 CDT Patient called for results, I gave her the info below. She voiced understanding. Addendum by KETAN KEANE LPN on 20 November 2014 13:30:41 CDT Message left for patient to call back with any questions From: DEWEY LAWRENCE RN, SALESPERSON [employer] To: AIDA ROACH; KETAN KEANE LPN; Sent: 11/20/2014 12:25:52 CDT Show up: 11/20/2014 12:26:00 CDT Subject: Results Notification please let her know her MRI is unremarkable and negative for any masses. Results: Date Result Type Result Name 11/19/2014 17:53 Radiology MR Brain w/ + w/o contrast Source: [employer] Document Id: [id number] Electronically signed by Conversion, [employer] Project Coordinator Rn [id number] at 01/03/2017 2:34 PM CDT Miscellaneous - Conversion, Historical Provider Ser - 11/19/2014 11:59 PM CDT Coding Summary-Paper Based CODING DATE: 11/27/2014 FINAL [facility] STATUS: * Discharged to Home or Self Care PAYOR: [employer] ADMIT DX: 784.0 Headache REASON FOR VISIT DX: FINAL DX: PRINCIPAL: 784.0 Headache SECONDARY: PROCEDURES DOCTOR NAME DATE NOTE: The code number assigned matches the documented diagnosis and / or procedure in the patient's chart. However, the narrative phrase printed from the coding software may appear abbreviated, or result in slightly different terminology. Coded By: ASHLEY DOWD Date Saved: 11/27/2014 02:07 pm Source: [employer] Document Id: [id number] documented in this encounter Plan of Treatment Not on filedocumented as of this encounter Visit Diagnoses Not on filedocumented in this encounter
--- OUTSIDE RECORDS SUMMARY | 2022-05-04 10:31 | XMS_ITS | Encounter Summary ---
:1980 Author Organization [facility] Address [address] [place] [address] Care Team Providers Name Role Phone Laureen Montana D.O. Primary Care Provider [phone] Reason for Referral Outpatient (Routine) - Authorized Specialty Diagnoses / Procedures Referred By Contact Refer red To Contact Family Medicine Laureen Montana D.O. [facility] [address] [phone] Referral ID Status Reason Start Date Expiration Date Visits V isits Requested Authorized [id number] Authorized 01/13/2022 01/13/2023 1 1 Encounter Details Date Type Department Care Team Description 01/13/2022 Orders Only [facility] SEMN PCP TH GRACET Sa julianna Brown M.D. [address] [place], [place] [phone] (Wo rk) Social History Tobacco Use Types [...] of this encounter Plan of Treatment Scheduled Referrals Name Type Priority Associated Diagnoses Order S [facility] Family Medicine Outpatient Referral Routine Expec kathy: office visit 01/27/2022, (clinic) Expires: 07/12/2022 documented as of this encounter Visit Diagnoses Not on filedocumented in this encounter Care Teams Receiving Worker Relationship Specialty Start Date End Date Laureen Montana D.O. PCP - General Family Medicine 09/27/20 [address] [place] [phone] documented as of this encounter
--- OUTSIDE RECORDS SUMMARY | 2022-05-04 10:31 | XMS_ITS | Encounter Summary ---
:1980 Author Organization [facility] Address [address] [place] [address] Care Team Providers Name Role Phone Laureen Montana D.O. Primary Care Provider [phone] Encounter Details Date Type Department Care Team Description 11/26/2020 Orders Only [facility] Sa julianna Brown M.[facility]. [address] [place], [place] [phone] (Wo rk) Social History [...] on filedocumented in this encounter Care Teams Contaminated Land Consultant Relationship Specialty Start Date End Date Laureen Montana D.O. PCP - General Family Medicine 09/27/20 [address] [place] [phone] documented as of this encounter
--- OUTSIDE RECORDS SUMMARY | 2022-05-04 10:31 | XMS_ITS | Encounter Summary ---
:1980 Author Organization [facility] Address [address] [place] [address] Care Team Providers Name Role Phone Unavailable Primary Care Provider Unavailable Encounter Details Date Type Department Care Team Description 04/25/2015 Hospital Encounter HX [facility]WHO ULTRASOUN Dewey Lawrence, LAVENDER FARM WORKER, C.N.P., D. N.P. [address] [place] [phone] (Wo rk) Social History Tobacco Use [...] - - Height 170 cm (5' 6.93) 04/25/2015 1:19 PM CDT Body Mass Index - - documented in this encounter Medications at Time of Discharge Medication Sig Dispensed Refills Start Date End Date tetrahydrozoline (Visine) 0.05 1 drop as needed. 0 08/26/2008 % ophthalmic solution documented as of this encounter Miscellaneous Notes Miscellaneous - Brit Connolly, L.P.N. - 05/10/2015 1:36 PM CDT *General Message From: BRIT CONNOLLY LPN ([place] [facility] Medicine Nurse Randy) To: HATTIE BRENNER Sent: 05/10/2015 13:36:02 CDT Subject: *General Message Hattie Your pelvic US is unremarkable. Dewey would really like you to do PT for pelvic pain and muscles. That is in [place]. They should be contacting you to set that up. If you have any questions please call [phone]. Thank you, Brit QUEVEDO [facility] Document Id: [id number] Electronically signed by Conversion, [facility] Electric Motor Rebuilder [id number] at 01/04/2017 11:12 AM CDT Miscellaneous - Dewey Lawrence, ALEXEY, CDexNDexP. - 04/30/2015 10:38 AM CDT Results Notification Document Contains Addenda Addendum by BRIT CONNOLLY LPN on 10 May 2015 13:36:23 CDT Portal message sent to patient. Addendum by BRIT CONNOLLY LPN on 10 May 2015 12:03:22 CDT No return call at this time. Addendum by KETAN KEANE LPN on 07 May 2015 11:47:04 CDT Message left for patient to return call for results Addendum by CHRISSIE FERGUSON LPN on 01 May 2015 12:51:37 CDT left message to call back Addendum by CHRISSIE FERGUSON LPN on 30 April 2015 10:51:07 CDT left message to call back From: DEWEY LAWRENCE RN, EXPEDITER SERVICE ORDER To: [place] [facility] Medicine Nurse Randy; Sent: 04/30/2015 10:38:52 CDT Show up: 04/30/2015 10:38:00 CDT Subject: Results Notification please let her know her pelvic US is unremarkable. I really want her to see PT for pelvic pain to help with muscles. That may directly impact the back pain. THat is in [place]. thanks Results: Date Result Type Result Name 04/30/2015 9:42 Radiology US Pelvic And Endovaginal Source: [facility] Document Id: [id number] Electronically signed by Conversion, [facility] Electric Motor Rebuilder [id number] at 01/04/2017 11:12 AM CDT Miscellaneous - Conversion, Historical Provider Ser - 04/25/2015 11:59 PM CDT Coding Summary-Paper Based CODING DATE: 04/30/2015 FINAL [facility] STATUS: * Discharged to Home or Self Care PAYOR: Randy Greenberg ADMIT DX: 625.9 Unspecified Symptom Associated with Female Genital Organs REASON FOR VISIT DX: 625.9 Unspecified Symptom Associated with Female Genital Organs FINAL DX: PRINCIPAL: 625.9 Unspecified Symptom Associated with Female Genital Organs SECONDARY: 621.6 Malposition of Uterus PROCEDURES DOCTOR NAME DATE NOTE: The code number assigned matches the documented diagnosis and / or procedure in the patient's chart. However, the narrative phrase printed from the coding software may appear abbreviated, or result in slightly different terminology. Coded By: ALBA HANSEN Date Saved: 04/30/2015 11:17 am Source: [facility] Document Id: [id number] Miscellaneous - Dewey Lawrence, LAVENDER FARM WORKER, C.N.P. - 04/25/2015 5:36 PM CDT Results Notification Document Contains Addenda Addendum by BRIT CONNOLLY LPN on 26 April 2015 09:04:40 CDT Spoke with Hattie regarding below message. States, understanding, From: DEWEY LAWRENCE RN, EXPEDITER SERVICE ORDER To: [place] Family Medicine Nurse Randy; Sent: 04/25/2015 17:36:37 CDT ! Show up: 04/25/2015 17:36:00 CDT Subject: Results Notification please let her know the US is normal. Will have her FU with PT in [place] for pelvic pain. THis thearpy may also help her back. Thanks Results: Date Result Type Result Name 04/25/2015 17:02 Radiology US Pelvic And Endovaginal Source: [facility] Document Id: [id number] Electronically signed by Conversion, [facility] Electric Motor Rebuilder [id number] at 01/04/2017 11:12 AM CDT documented in this encounter Plan of Treatment Not on filedocumented as of this encounter Visit Diagnoses Not on filedocumented in this encounter
--- OUTSIDE RECORDS SUMMARY | 2022-05-04 10:31 | XMS_ITS | Encounter Summary ---
:1980 Author Organization [facility] Address [address] [place] [address] Care Team Providers Name Role Phone Elsewhere, Pcp Primary Care Provider Unavailable Reason for Visit Reason Comments Physical Establish Care Appointment Request (Routine) - Closed Specialty Diagnoses / Procedures Referred By Contact Refer red To Contact Family Medicine Referral ID Status Reason Start Date Expiration Date Visits Requ ested Visits Authorized [id number] Closed 06/11/2020 06/11/2021 1 1 Encounter Details Date Type Department Care Team Description 07/23/2020 Comprehensive Visit Department of Armando Montana Allergic (Primary Dx); Family MedicineLaureen D.O. Hypothyroidism; [facility], [address] Pap Smear Examination; [place], [place] Well Adult Examination Xin l [address] [place] [address] [address] [address] [place], [place] [phone] (Work) [phone] Social History Tobacco Use Types Packs/Day Years [...] Sign Reading Time Taken Comments Blood Pressure 112/68 07/23/2020 10:07 AM TARE MAN Pulse 80 07/23/2020 10:07 AM TARE MAN Temperature 36.6 ??C (97.9 ??F) 07/23/2020 10:07 AM TARE MAN Respiratory Rate - - Oxygen Saturation - - Inhaled Oxygen Concentration - - Weight 63.8 kg (140 lb 10.5 oz) 07/23/2020 10:07 AM TARE MAN Height 170.2 cm (5' 7) 07/23/2020 10:07 AM TARE MAN Body Mass Index 22.03 07/23/2020 10:07 AM TARE MAN documented in this encounter H&P Notes Laureen Montana D.O. - 07/23/2020 10:15 AM CST SUBJECTIVE HISTORY OF PRESENT ILLNESS This is a 40 y.o. female who presents for her annual physical. Concerns: h/o hypothyroidism; was trying to stay off medication and was using supplements, but sx had become great enough that she restarted meds a couple of weeks ago (tsh 9 at that time) and fatigue has improved. LMP: No LMP recorded. Pap smear last performed 2017 and due every 3 years. MEDICAL HISTORY No past medical history on file. SURGICAL HISTORY Past Surgical History: Procedure Laterality Date ??? CHOLECYSTECTOMY 2016 ??? MYRINGOTOMY AND INSERTION OF T TUBE N/A Myringotomy including aspiration and/or eustachian tube inflation requiring general anesthesia.. ??? OTHER CONVERTED SHX (SEE COMMENT) N/A 07/27/1988 Bilateral myringotomy with insertion of Paparella tube. SOCIAL HISTORY Social History Socioeconomic History ??? Marital status: Spouse name: None ??? Number of children: None ??? Years of education: None ??? Highest education level: None Occupational History ??? None Social Needs ??? Financial resource strain: None ??? Food insecurity Worry: None Inability: None ??? Transportation needs Medical: None Non-medical: None Tobacco Use ??? Smoking status: Never Smoker ??? Smokeless tobacco: Never Used Substance and Sexual Activity ??? Alcohol use: Not Currently Frequency: Never ??? Drug use: Never ??? Sexual activity: None Lifestyle ??? Physical activity Days per week: None Minutes per session: None ??? Stress: None Relationships ??? Social connections Talks on phone: None Gets together: None Attends adventism service: None Active member of club or organization: None Attends meetings of clubs or organizations: None Relationship status: None ??? Intimate partner violence Fear of current or ex partner: None Emotionally abused: None Physically abused: None Forced sexual activity: None Other Topics Concern ??? None Social History Narrative ??? None FAMILY HISTORY Family History Problem Relation Age of Onset ??? Diabetes Grandmother ??? Breast cancer Aunt SCHEDULED MEDICATIONS: Current Outpatient Medications: ??? dgrqyic-svtovboeu-aujj 333-133-5 mg tablet, Take by mouth., Disp: , Rfl: ??? cholecalciferol (VITAMIN D3) 2.5 mcg (100 Unit) tablet, Take 1 capsule by mouth., Disp: , Rfl: ??? Lactobac no.30-Bifidobact no.4 30 billion cell capsule,delayed release(/EC), Take 1 capsule bymouth daily., Disp: , Rfl: ??? omega-3 fatty acids-fish oil 340-1,000 mg per capsule, 1 capsule., Disp: , Rfl: ??? tetrahydrozoline (Visine) 0.05 % ophthalmic solution, 1 drop as needed., Disp: , Rfl: ??? thyroid, pork, 30 mg tablet, Take 30 mg by mouth., Disp: , Rfl: ALLERGIES/CONTRAINDICATIONS Allergies Allergen Reactions ??? Paroxetine Other (see comments) Made depression worse, Suicidal ??? Pollen Extracts Other (see comments) Sneezing, itchy eyes REVIEW OF SYSTEMS Ten point review of systems negative except that as noted above OBJECTIVE VITAL SIGNS BP 112/68 Pulse 80 Temp 36.6 ??C Ht 170.2 cm Wt 63.8 kg BMI 22.03 kg/m?? PHYSICAL EXAMINATION General Appearance: Alert, cooperative, no distress, appears stated age. Head: Normocephalic, without obvious abnormality, atraumatic. Eyes: PERRL, conjunctivae/corneas clear, EOMs intact. Ears: Normal TMs and external ear canals, both ears. Nose: Nares normal, septum midline, mucosa normal, no drainage or sinus tenderness. Throat: Lips, mucosa, and tongue normal; teeth and gums normal. Neck: Supple, symmetrical, trachea midline, no adenopathy. Thyroid: No enlargement/tenderness/nodules. Back: Symmetric, no curvature, ROM normal, no CVA tenderness. Lungs: Clear to auscultation bilaterally, respirations unlabored. Chest Wall: No tenderness or deformity. Heart: Regular rate and rhythm, S1 and S2 normal, no murmur, rub or gallop. Breast Exam: No tenderness, masses, or nipple abnormality. Abdomen: Soft, non-tender, bowel sounds active all four quadrants, no masses, no organomegaly. Extremities: Extremities normal, atraumatic, no cyanosis or edema. Pulses: 2+ and symmetric all extremities. Skin: Skin color, texture, turgor normal, no rashes or lesions. Lymph nodes: Cervical, supraclavicular, and axillary nodes normal. Neurologic: Grossly normal. DIAGNOSTICS LAB: No results found for this or any previous visit (from the past 24 hour(s)). ASSESSMENT / PLAN 1. Rhinitis Allergic Continue otc tx 2. Hypothyroidism Has lab checked scheduled in [place] in August. Will let me know results 3. Pap Smear Examination Will do next year and not yet due - ThinPrep w/HPV Co-Test Screen; Future - ThinPrep w/HPV Co-Test Screen 4. Well Adult Examination Normal Return visit recommended 1 year. MAN documented in this encounter Plan of Treatment Scheduled Orders Name Type Priority Associated Diagnoses Order S chedule ThinPrep w/HPV Pathology and Routine Pap Smear Examination Exp ected: Co-Test Screen Cytology 07/23/2020 (Approximate), Expires: 07/23/2023 documented as of this encounter Visit Diagnoses Diagnosis Rhinitis Allergic - Primary Hypothyroidism Pap Smear Examination Well Adult Examination Normal documented in this encounter Care Teams Senior It Project Manager Relationship Specialty Start Date End Date Elsewhere, Pcp PCP - General 10/08/19 09/26/20 documented as of this encounter
--- OUTSIDE RECORDS SUMMARY | 2022-05-04 10:32 | XMS_ITS | Encounter Summary ---
:1980 Author Organization [facility] Address [address] [place] [address] Care Team Providers Name Role Phone Unavailable Primary Care Provider Unavailable Encounter Details Date Type Department Care Team Description 05/14/2014 Hospital Encounter HX [facility] Jolene Lawrence APRN, C.N.P., D. N.P. [address] [place] [phone] (Wo rk) Social History Tobacco Use [...] Sign Reading Time Taken Comments Blood Pressure 110/64 05/14/2014 8:45 AM CDT Pulse 76 05/14/2014 8:45 AM CDT Temperature - - Respiratory Rate 16 05/14/2014 8:45 AM CDT Oxygen Saturation - - Inhaled Oxygen Concentration - - Weight 62 kg (136 lb 11 oz) 05/14/2014 8:45 AM CDT Height 172 cm (5' 7.72) 05/14/2014 8:45 AM CDT Body Mass Index 20.96 05/14/2014 8:45 AM CDT documented in this encounter Medications at Time of Discharge Medication Sig Dispensed Refills Start Date End Date tetrahydrozoline (Visine) 0.05 1 drop as needed. 0 08/26/2008 % ophthalmic solution documented as of this encounter Progress Notes Jolene Lawrence APRN, C.N.P. - 05/14/2014 8:31 AM CDT [id number] CHIEF COMPLAINT/REASON FOR VISIT Hypothyroidism. HISTORY OF PRESENT ILLNESS Hattie is a very pleasant 33-year-old female who comes in today for an annual recheck. She does not need a Pap smear nor does she need a mammogram. She does need a tetanus update which we did update today. She declines a flu shot. Patient states that she has symptoms of always feeling tired, sleeping 10 hours and still needing a nap. Feels like her head is in a fog, difficulty concentrating, forgetfulness, headaches, stiff neck, numbness, no patience, crabbiness, decreased sex drive and feels somewhat zoned out. Patient has been taking some auwo-axc-lhelkns supplements for thyroid. Despite that her most recent TSH was noted to be 10.7. Patient also is looking at doing other thyroid herbs and support. As patient has been placed on Synthroid in the past it caused her chest discomfort and she quit taking it. MEDICATIONS New reconciled medication is Kingston 15 mg by mouth daily. ALLERGIES No known drug allergies. SYSTEMS REVIEW As noted above. She denies any fevers or chills or illness today. PAST MEDICAL/SURGICAL HISTORY Please see the EMR. SOCIAL HISTORY Patient is . She is a non-tobacco user. Occasional use of alcohol. 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 FAMILY HISTORY The patient has an aunt who of breast cancer. Otherwise her parents are in good health. She hassiblings also that are in good health. VITAL SIGNS Her blood pressure is 110/64 with a pulse of 76. Her weight is 62 kg. PHYSICAL EXAMINATION GENERAL: Patient appears non-distressed. SKIN: Warm and dry. NECK: Thyroid assessed and negative. LYMPH: With no cervical, supraclavicular, axillary, or femoral lymphadenopathy. HEART: Regular rate and rhythm. LUNGS: Clear to auscultation with good respiratory effort. ABDOMEN: Soft, no organomegaly. EXTREMITIES: Without any edema. THYROID: Without masses or nodules. No abnormalities identified. IMPRESSION/REPORT/PLAN 1. Hypothyroidism. PLAN: I did discuss in long conversation with the patient that many of her symptoms are related to her hypothyroidism. Although natural is a good plan, it is not seeming to work. We did discuss treatment options such as Kingston which patient is agreeable to. We will start her on 15 mg. We will plan to have her return in 2 months for a TSH recheck and we will adjust accordingly. Patient agrees with this plan. 2. Immunization need. We did update her tetanus with a Tdap. Ready to learn. No apparent learning barriers were identified. Learning preferences include listening. Explained diagnosis and treatment plan. Patient/Child/Caregiver expressed understanding of the content. Karlos Blanco/danyelle Electronically Signed By: JOLENE LAWRENCE RN, CNP On: 05/16/2014 08:28 AM Source: [facility] MHSDOLBEYNONRADSYS Document Id: [id number] documented in this encounter Miscellaneous Notes Miscellaneous - Jolene Lawrence APRN, C.N.P. - 05/14/2014 9:30 AM CDT Ambulatory Patient Summary [address] [id number] Visit Information Name: HATTIE BRENNER [facility] Number: [id number] Current Date: 05/14/2014 09:30:43 Physicians Attending Provider: JOLENE LAWRENCE RN, JUANY Primary Care Provider: JOLENE LAWRENCE RN, CONTAINER COORDINATOR HATTIE BRENNER has been given the following [...] (aspirin) 81 mg, Oral, once a day metroNIDAZOLE topical (MetroCream 0.75% topical cream) 1 jannie, Topical, two times a day to cheeks, nose, chin and forehead for rosacea. [facility] Prescription ([facility] Prescription) Tumeric one tablet daily thyroid desiccated (Kingston Thyroid 15 mg oral tablet) 1 Tablet(s), Oral, once a day New Routed to [address] [place] [address] Stop Taking the Following Medications: levothyroxine (levothyroxine 112 mcg (0.112 mg) oral tablet) Medication list as of 05-14-14 09:30 Attention: If you have any medications at [...] Signed By: JOLENE LAWRENCE RN, CNP Signed On:14-MAY-2014 09:30:27 Your Allergies & Intolerances Substance Reaction Symptoms Category Comments No Known Allergies Drug Your Problem List Problem Status Onset Comments Palpitations Active 04/24/2004 Numbness Active 07/16/2004 Allergy Seasonal Active 12/31/2005 None Active 01/16/2013 Your Upcoming Appointments Date Time Location Provider No Appointments found Attention: Contact your local Clinic if further appointment detail needed. Your Goals/Additional instructions: Source: [facility] POWERCHART Document Id: [id number] Miscellaneous - Jolene Lawrence APRN, C.N.P. - 05/14/2014 9:30 AM CDT Ambulatory Discharge Medication List [address] [place] [id number] Visit Information Name: HATTIE BRENNER [facility] Number: [id number] Visit Date: 05/14/2014 09:30:39 Attending Provider: JOLENE LAWRENCE RN, JUANY Primary Care Provider: JOLENE LAWRENCE RN, JUANY HATTIE BRENNER RAE has been given the following list [...] (aspirin) 81 mg, Oral, once a day metroNIDAZOLE topical (MetroCream 0.75% topical cream) 1 jannie, Topical, two times a day to cheeks, nose, chin and forehead for rosacea. Misc Prescription (Misc Prescription) Tumeric one tablet daily thyroid desiccated (Kingston Thyroid 15 mg oral tablet) 1 Tablet(s), Oral, once a day New Routed to [address] [address] Stop Taking the Following Medications: levothyroxine (levothyroxine 112 mcg (0.112 mg) oral tablet) Medication list as of 05-14-14 09:30 Attention: If you have any medications at [...] emergency. Electronically Signed By: JOLENE LAWRENCE RN, CONTAINER COORDINATOR Signed On:14-MAY-2014 09:30:27 Additional Information: Source: [facility] POWERCHART Document Id: [id number] Miscellaneous - Ketan Chacon L.P.N. - 05/14/2014 8:52 AM CDT Health Assessment Health Assessment Entered On: 05/14/2014 8:52 CDT Performed On: 05/14/2014 8:52 CDT by KETAN CHACON LPN Health Assessment Complete Health Assessment Complete or Modified : Annual Health Assessment Annual Health Assessment Completed : Yes KETAN CHACON LPN - 05/14/2014 8:52 CDT Nutrition Nutrition Risk Factors by History Adult : None KETAN CHACON LPN - 05/14/2014 8:52 CDT Functional Current Daily Living Assistance : None LAKHWINDER KETANCRISTINA Jade LPN - 05/14/2014 8:52 CDT Dependent Habits Tobacco Use/Currently Using : No Smoking Status : Never smoker CHACON, KETAN Jade LPN - 05/14/2014 8:52 CDT Tobacco Use Grid Last Use : never KETAN CHACON LPN - 05/14/2014 8:52 CDT Caffeine Use Grid Caffeine Use : None KETAN CHACON LPN - 05/14/2014 8:52 CDT Recreational Drug Use Grid Drug Use : None KETAN CHACON LPN - 05/14/2014 8:52 CDT Psychosocial Domestic Abuse Concerns : None Taoism Preference : No qualifying data available. KETAN CHACON LPN - 05/14/2014 8:52 CDT Advance Directive Advanced Directives : No KETAN CHACON LPN - 05/14/2014 8:52 CDT Educ Needs Learning Style Preference Adult Grid Patient : Demonstration Family : None KETAN CHACON LPN - 05/14/2014 8:52 CDT Source: [employer] Document Id: [id number] CDT!29 Luianeous - Ketan Chacon LDexP.NDex - 05/14/2014 8:52 AM CDT Meaningful Use Influenza Exclusion Meaningful Use Influenza Exclusion Entered On: 05/14/2014 8:52 CDT Performed On: 05/14/2014 8:52 CDT by KETAN CHACON LPN Influenza Vaccine Exclusion Influenza Vaccine Exclusion : Patient declined KETAN CHACON LPN - 05/14/2014 8:52 CDT Source: [employer] Document Id: [id number] CDT!3 Alejandra - Ketan Chacon LDexP.NDex - 05/14/2014 8:45 AM CDT Adult Palletizer Intake/History Adult Palletizer Intake/History Entered On: 05/14/2014 8:49 CDT Performed On: 05/14/2014 8:45 CDT by KETAN CHACON LPN Intake Chief Complaint : Yearly physical, labs Temperature Core : 36.9 DegC(Converted to: 98.4 DegF) Peripheral Pulse Rate : 76 /min Respiratory Rate : 16 /min Heart Rhythm : Regular Systolic Blood Pressure : 110 mmHg Diastolic Blood Pressure : 64 mmHg NIBP Mean : 79 mmHg BP Location : Left upper extremity Blood Pressure Cuff Size : Regular Height : 172 cm(Converted to: 5 ft 8 inch(es), 68 inch(es)) Actual Weight : 62 kg(Converted to: 136 lb 11 oz) Weight Source : Standing scale Dosing Weight Clinic : 62 kg Clinic BSA : 1.72 Body Mass Index : 20.96 kg/m2 KETAN CHCAON LPN - 05/14/2014 8:45 CDT General Info Information Given By : Patient Languages : Khmer Is Patient Female and 13-50 no hysterectomy : Yes Status : Patient denies Are you ? : No KETAN CHACON LPN - 05/14/2014 8:45 CDT Subjective Pain Symptoms : No KETAN CHACON LPN - 05/14/2014 8:45 CDT Dependent Habits Tobacco Use/Currently Using : No Smoking Status : Never smoker KETAN CHACON LPN - 05/14/2014 8:45 CDT Tobacco Use Grid Last Use : never KETAN CHACON LPN - 05/14/2014 8:45 CDT Alcohol Use : Yes KETAN CHACON LPN - 05/14/2014 8:45 CDT Caffeine Use Grid Caffeine Use : None KETAN CHACON LPN - 05/14/2014 8:45 CDT Recreational Drug Use Grid Drug Use : None KETAN CHACON LPN - 05/14/2014 8:45 CDT Source: [facility] POWERCHART Document Id: [id number] CDT!39 documented in this encounter Plan of Treatment Not on filedocumented as of this encounter Visit Diagnoses Not on filedocumented in this encounter
--- OUTSIDE RECORDS SUMMARY | 2022-05-04 10:32 | XMS_ITS | Encounter Summary ---
:1980 Author Organization [facility] Address [address] [place] [address] Care Team Providers Name Role Phone Unavailable Primary Care Provider Unavailable Encounter Details Date Type Department Care Team Description 03/19/2014 Hospital Encounter HX [facility] Dewey Li, MIKE RN, C.N.P., D.N.P. [address] [place], [place] [phone] (Wo rk) Social History [...] Concentration - - Weight - - Height 172 cm (5' 7.72) 03/19/2014 10:06 AM CDT Body Mass Index - - documented in this encounter Medications at Time of Discharge Medication Sig Dispensed Refills Start Date End Date tetrahydrozoline (Visine) 0.05 1 drop as needed. 0 08/26/2008 % ophthalmic solution documented as of this encounter Miscellaneous Notes Miscellaneous - Dewey Li, ALEXEY, C.N.P. - 03/22/2014 1:10 PM CDT Normal Results Letter 22 March 2014 HATTIE THAKUR [address] [facility] [id number] Dear HATTIE THAKUR, Your results from the following thyroid test is elevated. I appreciate your note. I feel many of your symptoms are consistent with your results, indicating hypothyroidism. We can further discuss at your visit. If you have questions or concerns, please do not hesitate to call our office. Result Name Current Result Previous Result Normal Range TSH (mcIU/mL) (H) 10.79 03/19/2014 0.38 08/29/2013 0.30 - 5.00 Sincerely, DEWEY LI [id number] [address] Electronic Signature Electronically Signed By: DEWEY LI RN, STEERER On: 22 March 2014 This document has images extracted. Source: [facility] POWERCHART Document Id: [id number] Electronically signed by Conversion, [facility] Performance Test Architect [id number] at 01/05/2017 11:54 AM CDT documented in this encounter Plan of Treatment Not on filedocumented as of this encounter Procedures Procedure Name Priority Date/Time Associated Diagnosis Comme nts THYROID-STIMULATING Routine 03/19/2014 10:15 AM R esults for this HORMONE-SENSITIVE CDT procedure are in (S-TSH) the results section. documented in this encounter Results (ABNORMAL) Thyroid-Stimulating Hormone-Sensitive (s-TSH) (03/19/2014 10:15 AM CDT) [facility] gist Method Time Signature TSH 10.79 (H) 0.30 - 5.00 POWERCHART (Thyrotropin) MCIUML Specimen (Source) Anatomical Collection Method Collection Time Re ceived Time Location / / Volume Laterality Blood 03/19/2014 10:15 AM CDT Dewey Li APRN, C.N.P., D.N.P. LAB BLOOD ADD-ON Performing Organization Address City/State/ZIP Code Phon e Number POWERCHART documented in this encounter Visit Diagnoses Not on filedocumented in this encounter
--- OUTSIDE RECORDS SUMMARY | 2022-05-04 10:32 | XMS_ITS | Encounter Summary ---
:1980 Author Organization [facility] Address [address] [place] [address] Care Team Providers Name Role Phone None, Pcp Primary Care Provider Unavailable Encounter Details Date Type Department Care Team Description 08/27/2020 Lab [place] Acquired hypothyroidism [address] [facility] (Primary Dx) [place] [address] Social History Tobacco Use Types Packs/Day Years Used Date Never Smoker Smokeless Tobacco: Never Used Alcohol Use Standard Drinks/Week Comments No 0 (1 standard drink = 0.6 oz pure alcoho l) Alcohol Habits Answer Date Recorded How often do you have a drink containing alcohol? Never 03/18/2020 How many drinks containing alcohol do you have on a typical Not asked day when you are drinking? How often do you have six or more drinks on one occasion? No t asked Comment: Not asked Sex Assigned at Date Recorded Not on file documented as of this encounter Miscellaneous Notes Addendum Note - Fran Perkins MA - 08/27/2020 8:00 AM DENTAL FRONT OFFICE ASSISTANT Addended by: FRAN PERKINS on: 08/27/2020 12:00 PM Modules accepted: Orders AL FRONT OFFICE ASSISTANT documented in this encounter Plan of Treatment Not on filedocumented as of this encounter Procedures Procedure Name Priority Date/Time Associated Diagnosis Comme nts THYROID FUNCTION Routine 08/27/2020 11:29 Acquired hypothyroid ism Results for this CASCADE AM DENTAL FRONT OFFICE ASSISTANT procedure are i n the results section. MAGNESIUM Routine 08/27/2020 11:29 Acquired hypothyroidism Results for this AM DENTAL FRONT OFFICE ASSISTANT procedure are i n the results section. documented in this encounter Results Magnesium (08/27/2020 11:29 AM DENTAL FRONT OFFICE ASSISTANT) athologist Signature Magnesium 2.2 1.6 - 2.3 08/28/2020 [facility] mg/dL 1:36 PM DENTAL FRONT OFFICE ASSISTANT [facility] Specimen Anatomical Collection Method Collection Time Receive d Time (Source) Location / / Volume Laterality Blood 08/27/2020 11:29 08/28/2020 AM DENTAL FRONT OFFICE ASSISTANT 12:38 PM DENTAL FRONT OFFICE ASSISTANT Deepika Rodriguez TANDEM MILL STICKER, TEST FACILITY ENGINEER LAB BLOOD ORDERABLES Performing Organization Address City/[facility] Code Phon e Number [facility] [address] [place] [phone] Thyroid Function Ogle (08/27/2020 11:29 AM DENTAL FRONT OFFICE ASSISTANT) athologist Signature TSH, Sensitive 3.79 0.46 - 08/28/2020 [facility] 4.68 mIU/L 2:02 PM DENTAL FRONT OFFICE ASSISTANT [facility] Comment: The results from this or any other diagn ostic test should be used and interpreted only in the context of the overall clinical picture. Biotin levels in serum remain elevated f or up to 24 hours after oral or intravenous biotin adminis tration and may interfere with this assay to produce unr eliable results. Heterophilic antibodies in serum or plas ma samples may cause interference in immunoassays. ??Exposure to animal antigens, either in the environment or as part of treatment or imaging procedures, may have circulating anti-an imal antibodies present. These antibodies may interfere with the assay reagents to produce unreliable results. ??Results which are inconsistent with clinical observations indicate the need for additional testing. Specimen Anatomical Collection Method Collection Time Receive d Time (Source) Location / / Volume Laterality Blood (Blood, 08/27/2020 11:29 08/28/2020 Venous) AM DENTAL FRONT OFFICE ASSISTANT 12:27 PM DENTAL FRONT OFFICE ASSISTANT Deepika Leslie Michael TANDEM MILL STICKER, TEST FACILITY ENGINEER LAB BLOOD ORDERABLES Performing Organization Address City/[facility]/ZIP Code Phon e Number [facility] [address] [place] [phone] documented in this encounter Visit Diagnoses Diagnosis Acquired hypothyroidism - Primary Unspecified hypothyroidism documented in this encounter Care Teams Machine Repair Person Relationship Specialty Start Date End Date None, Pcp PCP - General Creasing Machine Operator 08/27/20 04/06/21 [address] [place] [phone] documented as of this encounter
--- OUTSIDE RECORDS SUMMARY | 2022-05-04 10:32 | XMS_ITS | Encounter Summary ---
:1980 Author Organization [facility] Address [address] [place] [address] Care Team Providers Name Role Phone Unavailable Primary Care Provider Unavailable Encounter Details Date Type Department Care Team Description 01/16/2013 Hospital Encounter HX [facility] Jolene Lawrence APRN, C.N.P., D. N.P. [address] [place] [id number] (Wo rk) Social History Tobacco Use [...] Sign Reading Time Taken Comments Blood Pressure 112/60 01/16/2013 10:02 AM CDT Pulse 74 01/16/2013 10:02 AM CDT Temperature - - Respiratory Rate 16 01/16/2013 10:02 AM CDT Oxygen Saturation - - Inhaled Oxygen Concentration - - Weight 60.1 kg (132 lb 7.9 oz) 01/16/2013 10:02 AM CDT Height 171.5 cm (5' 7.52) 01/16/2013 10:02 AM CDT Body Mass Index 20.43 01/16/2013 10:02 AM CDT documented in this encounter Medications at Time of Discharge Medication Sig Dispensed Refills Start Date End Date tetrahydrozoline (Visine) 0.05 1 drop as needed. 0 08/26/2008 % ophthalmic solution documented as of this encounter H&P Notes Jolene Lawrence APRN, C.N.P. - 01/16/2013 9:57 AM CDT [id number] CHIEF COMPLAINT/REASON FOR VISIT Routine SLIP DUMPER exam. HISTORY OF PRESENT ILLNESS Hattie is a very pleasant 32-year-old female, mother of 2. She is a G2, P2. She comes in for her annual SLIP DUMPER exam. She believes she last had her Pap smear greater than 3 years ago and since that time hasgiven to her daughter. She was concerned and felt she needed to come in. She has occasional episodes of dizziness and feels just extremely fatigued much of the time. She denies feeling depressed but states that she does have difficulty concentrating. She has noted that she does get easy nosebleeds without any particular bruising. She has also had some sinus issues and has noted her right hand to go numb, especially at night. 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 S phyllis she decrease the frequency of nursing her menstrual cycles have returned and they are regular. She has not noted any significant weight changes but admits that she does not check her weight regularly. She does not care to take medications unless necessary. CURRENT MEDICATIONS No medications. New reconciled recommended medications: Multivitamin daily with a B complex. Claritin on an as-needed basis. ALLERGIES No known drug allergies. SYSTEMS REVIEW As noted above. She denies any activity intolerance, chest pain or shortness of breath. She does have the dizziness that occasionally occurs. It does not seem to be related to movement. She does state that she feels quite fatigued. She has the right hand numbness, sinus headaches and pressure. She does use a Neti pot. Concentration issues as noted above. No changes in bowel or bladder habits. Menstrual cycles have returned to be somewhat normal, not excessively heavy. She does have several moles that she would like also looked at, none that are new appearing. No fevers or chills. No current infectious symptoms. The rest of her review of systems is negative. PAST MEDICAL/SURGICAL HISTORY She has had a myringotomy surgery and mole removal. SOCIAL HISTORY She is and is a nonsmoker. No use of alcohol or drugs. She does exercise 4 to 5 times per week. She is the mother of 2. Method of control: Her is planning to have a vasectomy in the near future. Age appropriate counseling and risk factor reduction was provided. FAMILY HISTORY Negative. She has an aunt with breast cancer, VITAL SIGNS Blood pressure noted to be 112/60 with a pulse of 74. Temperature 37. Weight 60.1 kg with a BMI of 20.4. PHYSICAL EXAMINATION GENERAL: Patient appears nondistressed. SKIN: She has multiple nevi on her upper trunk, all that are benign appearing. No suspicious lesionsnoted. HEENT: Head is normocephalic. ENT examined and negative. Ears: She had significant fluid noted with a distorted light reflex behind the right tympanic membrane. LYMPH: No cervical, supraclavicular, axillary or femoral lymphadenopathy. Thyroid assessed and negative. VESSELS: Carotids with normal upstrokes, no bruits. HEART: Heart with regular rate and rhythm, normal S1, S2. LUNGS: Lungs are clear to auscultation. ABDOMEN: Soft. There is no organomegaly. PELVIC: Genitalia normal appearance. Pap smear obtained without any difficulty. No adnexal tenderness. Pelvic exam completely normal. EXTREMITIES: Without any edema. IMPRESSION/REPORT/PLAN 1. Routine SLIP DUMPER exam. 2. Fatigue and malaise. 3. Dizziness. PLAN: Today I would like to obtain a lipid profile as she has not had one done. Because of the bloody noses that she frequently has and the significant fatigue, I would like to obtain a CBC without differential, a glucose level, and a TSH. I will call her with those results. I did obtain a Pap smear and we will call her with those results. If those are normal, I would like to repeat a Pap again in 3 years. I did advise patient that clearly she has some fluid behind her TMs and that allergies might be the source of much of her sinus symptoms. I would like to have her take some Claritin pretty consistently for about 2 weeks and then on an as-needed basis to see if it improves her symptoms, and she does agree with that. 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 She will report if no improvement or any worsening symptoms. I would like to have our nurse call in about 2 months just to see how she is doing and if her symptoms are improving. I did also ask her to be somewhat aware of depression if there could be a factor that and she admits that shewill watch that. Karlos Blanco/[facility] Electronically Signed By: JOLENE LAWRENCE RN, CONSTRUCTION PROJECT ASSISTANT On: 01/18/2013 01:38 PM Source: [facility] MHSDOLBEYNONWARDSYS Document Id: [id number] documented in this encounter Miscellaneous Notes Miscellaneous - Jolene Lawrence APRN, C.N.P. - 01/24/2013 7:44 AM CDT Normal Results Letter 24 January 2013 HATTIE BRENNER [address] [facility] [address] Dear HATTIE BRENNER, I am pleased to report that your results from the following diagnostic test(s) are normal. You will need a pap again in 3 years. If you have questions or concerns, please do not hesitate to call our office. Result Name Current Result ThPrep Scrn Fnl-Cruz See Comment 01/16/2013 Sincerely, JOLENE LAWRENCE [address] [place] [address] Electronic Signature Electronically Signed By: JOLENE LAWRENCE RN, CONSTRUCTION PROJECT ASSISTANT On: 24 January 2013 This document has images extracted. Source: [facility] POWERCHART Document Id: [id number] Electronically signed by Paul Moh[facility] Psychiatric Centerdain Liquor Clerk [id number] at 01/05/2017 11:10 PM CDT Miscellaneous - Jolene Lawrence APRN, C.N.P. - 01/18/2013 5:27 PM CDT Normal Results Letter 18 January 2013 HATTIE BRENNER [address] [place] [address] Dear HATTIE BRENNER, I am pleased to report that your results from the following diagnostic test(s) are below as we discussed..We will get you started on the medication for your thyroid and recheck the TSH (thyroid hormone) in 3 months. If you have questions or concerns, please do not hesitate to call our office. Result Name Current Result Normal Range Glucose Lvl (mg/dL) 96 01/16/2013 70 - 139 Cholesterol (mg/dL) 74 01/16/2013 0 - 200 Trig (mg/dL) 38 01/16/2013 9 - 150 HDL (mg/dL) 35 01/16/2013 35 - 60 LDL Calculated (mg/dL) (L) 32 01/16/2013 100 - 129 Chol/HDL Ratio 2 01/16/2013 TSH (mcIU/mL) (H) 9.10 01/16/2013 0.30 - 5.00 Hgb (g/dL) 12.6 01/16/2013 12.0 - 15.5 Hct (%) 38.9 01/16/2013 34.9 - 44.5 WBC (x10(9)/L) 5.2 01/16/2013 3.4 - 10.5 RBC (x10(12)/L) 4.38 01/16/2013 3.90 - 5.03 MCV (fL) 88.8 01/16/2013 82.0 - 98.0 RDW (%) 11.9 01/16/2013 11.9 - 15.5 Platelet (x10(9)/L) 169 01/16/2013 150 - 450 Sincerely, JOLENE LAWRENCE [address] [place] [address] Electronic Signature Electronically Signed By: JOLENE LAWRENCE RN, CONSTRUCTION PROJECT ASSISTANT On: 18 January 2013 This document has images extracted. Source: [facility] ASSET4 Document Id: [id number] Miscellaneous - Jolene Lawrence, PACKING MACHINE INSPECTOR, C.N.P. - 01/16/2013 10:52 AM CDT General Message Document Contains Addenda Addendum by KETAN CHACON LPN on 16 January 2013 11:27:46 CDT 03/18/13 From: JOLENE LAWRENCE RN, CONSTRUCTION PROJECT ASSISTANT To: KETAN CHACON LPN; Sent: 01/16/2013 10:52:57 CDT Subject: General Message call in 2 months and check on energy level/concentration also. Source: [facility] ASSET[facility] Document Id: [id number] Miscellaneous - Jolene Lawrence APRN, C.N.P. - 01/16/2013 10:52 AM CDT Ambulatory Depart Summary [address] [address] Visit Information Name: HATTIE BRENNER [facility] Number: [id number] Visit Date: 01/16/2013 10:52:26 Attending Provider: JOLENE LAWRENCE RN, CONSTRUCTION PROJECT ASSISTANT Primary Care Provider: JOLENE LAWRENCE RN, JUANY HATTIE BRENNER has been given the following list of medications: Your Medications It is important to take your medications as directed. Use a pill box or chart to help remind you to take your medications. Please let your doctor or nurse know if you have problems taking your medications. Medication/Strength Dose Route Frequency Indications/Special Instructions/Comments No Medications found Attention: If you have any medications at home that are not on this list, DO NOT take them until youcontact your provider for clarification. Additional Information: Source: [facility] POWERCHART Document Id: [id number] Miscellaneous - Jolene Lawrence APRN, C.N.P. - 01/16/2013 10:52 AM CDT Ambulatory Patient Summary [address] [address] Visit Information Name: HATTIE BRENNER [facility] Number: [id number] Current Date: 01/16/2013 10:52:27 Physicians Attending Provider: JOLENE LAWRENCE RN, CONSTRUCTION PROJECT ASSISTANT Primary Care Provider: JOLENE LAWRENCE RN, JUANY Your Medications Here is a list of your medications. It is important to take your medications as directed. Use a pillbox or chart to help remind you to take your medications. Please let your doctor or nurse know if you have problems taking your medications. Medication/Strength Dose Route Frequency Indications/Special Instructions/Comments No Medications found Attention: If you have any medications at home that are not on this list, DO NOT take them until youcontact your provider for clarification. Your Allergies & Intolerances Substance Reaction Symptoms Category Comments No Known Allergies Drug Your Problem List Problem Status Onset Comments None Active 01/16/2013 Your Upcoming Appointments Date Time Location Reason Provider No Appointments found Your Goals/Additional instructions: Source: [facility] POWERCHART Document Id: [id number] Miscellaneous - Ketan hCacon L.P.N. - 01/16/2013 10:09 AM CDT Health Assessment Health Assessment Entered On: 01/16/2013 10:10 CDT Performed On: 01/16/2013 10:09 CDT by KETAN CHACON LPN Health Assessment Complete Health Assessment Complete or Modified : Annual Health Assessment Annual Health Assessment Completed : Yes KETAN CHACON LPN - 01/16/2013 10:09 CDT Nutrition Nutrition Risk Factors by History Adult : None KETAN CHACON LPN - 01/16/2013 10:09 CDT Functional Current Daily Living Assistance : None KETAN CHACON LPN - 01/16/2013 10:09 CDT Dependent Habits Tobacco Use/Currently Using : No Smoking Status : Never smoker KETAN CHACON LPN - 01/16/2013 10:09 CDT Tobacco Use Grid Last Use : never KETAN CHACON LPN - 01/16/2013 10:09 CDT Caffeine Use Grid Caffeine Use : None KETAN CHACON LPN - 01/16/2013 10:09 CDT Recreational Drug Use Grid Drug Use : None KETAN CHACON LPN - 01/16/2013 10:09 CDT Psychosocial Domestic Abuse Concerns : None KETAN CHACON LPN - 01/16/2013 10:09 CDT Advance Directive Advanced Directives : No KETAN CHACON LPN - 01/16/2013 10:09 CDT Educ Needs Learning Style Preference Adult Grid Patient : Demonstration Family : None KETAN CHACON LPN - 01/16/2013 10:09 CDT Source: [facility] POWERCHART Document Id: [id number] CDT!28 Miscellaneous - Ketan Chacon L.PSabra - 01/16/2013 10:02 AM CDT Adult Nightclub Manager Intake/History Document Has Been Updated Adult Nightclub Manager Intake/History Entered On: 01/16/2013 10:07 CDT Performed On: 01/16/2013 10:02 CDT by KETAN CHACON LPN Intake Chief Complaint : Yearly physical last pap 2010 Right hand goes numb at times worse at night Tired all the time KETAN CHACON LPN - 01/16/2013 10:14 CDT Temperature Core : 37 DegC(Converted to: 98.6 DegF) Peripheral Pulse Rate : 74 /min Respiratory Rate : 16 /min Heart Rhythm : Regular Systolic Blood Pressure : 112 mmHg Diastolic Blood Pressure : 60 mmHg NIBP Mean : 77 mmHg BP Location : Right upper extremity Blood Pressure Cuff Size : Regular Height : 171.5 cm(Converted to: 5 ft 8 inch(es), 67.52 inch(es)) Actual Weight : 60.1 kg(Converted to: 132 lb 8 oz) Weight Source : Standing scale Dosing Weight Clinic : 60.1 kg Clinic BSA : 1.69 Body Mass Index : 20.43 kg/m2 KETAN CHACON LPN - 01/16/2013 10:02 CDT General Info Information Given By : Patient Preferred Communication Mode : Verbal Languages : Citizen Of [place] KETAN CHACON LPN - 01/16/2013 10:02 CDT Subjective Pain Symptoms : No KETAN CHACON LPN - 01/16/2013 10:02 CDT Dependent Habits Tobacco Use/Currently Using : No Smoking Status : Never smoker KETAN CHACON LPN - 01/16/2013 10:02 CDT Tobacco Use Grid Last Use : never KETAN CHACON LPN - 01/16/2013 10:02 CDT Alcohol Use : No CHACON KETAN Jade NURSE WOUND CARE - 01/16/2013 10:02 CDT Caffeine Use Grid Caffeine Use : None KETAN CHACON NURSE WOUND CARE - 01/16/2013 10:02 CDT Recreational Drug Use Grid Drug Use : None KETAN CHACON NURSE WOUND CARE - 01/16/2013 10:02 CDT Source: [facility] POWERCHART Document Id: [id number] CDT!3 documented in this encounter Plan of Treatment Not on filedocumented as of this encounter Procedures Procedure Name Priority Date/Time Associated Diagnosis Comme nts LIPID PANEL, S Routine 01/16/2013 11:05 AM Result s for this CDT procedure are i n the results section. GLUCOSE, P Routine 01/16/2013 11:05 AM Results for this CDT procedure are i n the results section. CBC WITHOUT Routine 01/16/2013 11:05 AM Results for this DIFFERENTIAL, B CDT procedure ar e in the results section. THYROID-STIMULATING Routine 01/16/2013 11:05 AM R esults for this HORMONE-SENSITIVE CDT procedure are in (S-TSH) the results section. THINPREP SCREEN HPV Routine 01/16/2013 10:20 AM R esults for this REFLEX CDT procedure are i n the results section. documented in this encounter Results CBC without Differential (01/16/2013 11:05 AM CDT) P athologist Signature Leukocytes 5.2 3.4 - 10.5 POWERCHART X109L Erythrocytes 4.38 3.90 - 5.03 POWERCHART [id number] Hemoglobin 12.6 12.0 - 15.5 POWERCHART GDL Hematocrit 38.9 34.9 - 44.5 POWERCHART MCV 88.8 82.0 - 98.0 POWERCHART FL HX RDW 11.9 11.9 - 15.5 POWERCHART Platelet Count 169 150 - 450 POWERCHART X109L Specimen (Source) Anatomical Collection Method Collection Time Re ceived Time Location / / Volume Laterality Blood 01/16/2013 11:05 AM CDT Jolene L Jen PACKING MACHINE INSPECTOR, C.N.P., D.N.P. LAB BLOOD ADD-ON Performing Organization Address City/State/ZIP Code Phon e Number POWERCHART Glucose (01/16/2013 11:05 AM CDT) athologist Signature Glucose 96 70 - 139 POWERCHART MGDL Specimen (Source) Anatomical Collection Method Collection Time Re ceived Time Location / / Volume Laterality Blood 01/16/2013 11:05 AM CDT Oskar Ren APRN.N.P., D.N.P. LAB BLOOD ADD-ON Performing Organization Address City/State/ZIP Code Phon e Number POWERCHART (ABNORMAL) Thyroid-Stimulating Hormone-Sensitive (s-TSH) (01/16/2013 11:05 AM CDT) [facility] Time Signature TSH 9.10 (H) 0.30 - 5.00 POWERCHART (Thyrotropin) MCIUML Specimen (Source) Anatomical Collection Method Collection Time Re ceived Time Location / / Volume Laterality Blood 01/16/2013 11:05 AM CDT Oskar Ren APRN.N.P., D.N.P. LAB BLOOD ADD-ON Performing Organization Address City/State/ZIP Code Phon e Number POWERCHART (ABNORMAL) Lipid Panel (01/16/2013 11:05 AM CDT) athologist Signature Cholesterol, 74 0 - 200 POWERCHART Total MGDL Comment: <200 mg/dL Desirable 200-239 mg/dL Borderline High >239 mg/dL High HX HDL 35 35 - 60 MGDL POWERCHART Comment: > 60 mg/dL Desirable 40 ? 60 mg/dL Low Risk <40 mg/dL Undesirable Triglycerides 38 9 - 150 MGDL POWERCHART Comment: <150 mg/dL Desirable 150-199 mg/dL Borderline High 200-499 mg/dL High > 499 Very High Calculated LDL 32 (L) 100 - 129 MGDL POWERCHART Total Cholesterol/HDL Ratio 2 PO WERCHART Specimen (Source) Anatomical Collection Method Collection Time Re ceived Time Location / / Volume Laterality Blood 01/16/2013 11:05 AM CDT Jolene Lawrence APRN C.N.P., D.N.P. LAB BLOOD ADD-ON Performing Organization Address City/[facility] Code Phon e Number POWERCHART Pathology ThinPrep Screen HPV Reflex (01/16/2013 10:20 AM CDT) [facility] Method Time Signature Interpretation [id number] POWERCHART HXThPrep Scrn See Comment POWERCHART [facility] Comment: A. ??ThinPrep Pap Test Screen (Cervical/ Endocervical HPV Reflex): Satisfactory for evaluation. Scanty cellularity. Negative for intraepithelial lesion or m alignancy. HXThPrep Scrn Cyto-[place] See Comment JEREMIAH RCHART Comment: Report electronically signed by YASMIN Horvath (ASCP) 01/23/2013 10:42 Interpreted by: YASMIN Horvath (ASCP) HX Spec [facility] See Comment POWERCHART Comment: A. ??ThinPrep Pap Test Screen (Cervical/ Endocervical HPV Reflex): Received cloudy specimen in ThinPrep via l. Test Performed by: [place] [address] Floor Person: Enrrique perez III, M.D. Specimen (Source) Anatomical Collection Method Collection Time Re ceived Time Location / / Volume Laterality Cervix/Endocervix 01/16/2013 10:20 AM CDT Jolene Lawrence APRN, C.N.P., D.N.P. LAB PAP PATHDX CJ CID Performing Organization Address City/[facility] Code Phon e Number POWERCHART documented in this encounter Visit Diagnoses Not on filedocumented in this encounter
--- OUTSIDE RECORDS SUMMARY | 2022-05-04 10:32 | XMS_ITS | Clinical Summary ---
:1980 Author Organization [facility] Address [address] [place] [address] Care Team Providers Name Role Phone Deepika Rodriguez APRN, LANDSCAPER Primary Care Provider Allergies Active Allergy Reactions Severity Noted Date Comments Paroxetine Other (see comments) High Made de pression worse, Suicidal Pollen Extract Medium 07/13/2019 Other reactio n(s): Other (see comments) Sneezing, itchy eyes Seasonal Other (see comments) Medium 07/13/2019 Sneezin g, itchy eyes Medications Medication Sig Dispensed Refills Start Date End Date Status Cholecalciferol Take 1 capsule by 0 Active (VITAMIN D3 PO) mouth per week [id number] [place]-3 Fatty Acids 1 capsule daily 0 Active (FISH OIL OMEGA-3 PO) Probiotic Product 1 capsule 1 (one) 0 Active (PROBIOTIC DAILY PO) time each day if needed THYROID POIndications: Take 1 capsule by 0 Active Thyroid Care and mouth Thyroid Thyroid maintenance care With Supplements iodine+L tyrosine. BL Take by mouth 0 Active [id number] PO UNABLE TO FIND Med Name: Mind 0 Active [place]; ELEUTERIO, lemon balm and magnesium thyroid ([place] Take 1 tablet (30 30 tablet 2 07/08/2020 Active Thyroid) 30 MG mg total) by tabletIndications: mouth 1 (one) Acquired hypothyroidism time each day Take 1/2 tab for 8 days then 1 tab. Active Problems Problem Noted Date Takes dietary supplements 07/08/2020 Last Assessment & Plan: Formatting of th is note might be different from the original. Patient is taking vit D 10,000 iu daily without hx of vit d deficiency. Discussed she can use weekly for supplementation. Also take magnesium supplement, discuss can induce diarrhea and to be careful on over supplementing. Anxiety and depression 07/08/2020 Last Assessment & Plan: Formatting of th is note might be different from the original. History of anxiety/depression, not curre ntly requiring treatment. phq9-0, gad7-5. Acquired hypothyroidism 05/25/2018 Overview: 05/25/18: Was taking armour thyroid. Sto pped taking it about 1.5 years ago. She has been trying to wean of prescription medications due to increasing anxiety and depression. Changed diet to exclude glut en, dairy, and eggs. Taking thyroid care and thyroid maintenance supplements as recommended by homeopathic doctor. Overall feeling much better in the last couple of months since she started the diet. Last Assessment & Plan: Discussed importance of normal t4 hormon e in body to help all organs function well. Symptoms she is having and previous lab values consistent with low thyroid hormone. Patient was agreeable to using por cine derived thyroid hormone. Looks like she was on armour thyroid in the past, will resume this and recheck labs in about 7 weeks. Immunizations Name Administration Dates Next Due Hep B, Unspecified 09/27/2000, 09/08/1999, 03/29/1998 Influenza TIV (IM) 05/11/2011, 04/16/2009 TD Preservative Free 03/31/2021, 01/12/2005 Tdap 05/14/2014, 10/19/2011 Family History Medical History Relation Comments No Known Problems Brother 1 No Known Problems Brother 2 No Known Problems Daughter No Known Problems Father Cancer Father's Sister breast Early Father's Sister breast cancer Heart disease Maternal Grandfather Stroke Maternal Grandfather Diabetes Maternal Grandmother No Known Problems Mother Alcohol abuse Paternal Grandfather Thyroid disease Paternal Grandmother No Known Problems Sister No Known Problems Son Relation Status Comments Brother 1 Alive Brother 2 Alive Daughter Alive Father Alive Father's Sister Maternal Grandfather Alive Maternal Grandmother Alive Mother Alive Paternal Grandfather Paternal Grandmother Alive Sister Alive Son Alive Social History Tobacco Use Types Packs/Day Years [...] Sign Reading Time Taken Comments Blood Pressure 118/68 07/08/2020 8:39 AM WARBLE SAW OPERATOR Pulse 86 07/08/2020 8:39 AM WARBLE SAW OPERATOR Temperature 37.2 ??C (98.9 ??F) 07/08/2020 8:39 AM WARBLE SAW OPERATOR Respiratory Rate 12 07/08/2020 8:39 AM WARBLE SAW OPERATOR Oxygen Saturation 99% 07/08/2020 8:39 AM WARBLE SAW OPERATOR Inhaled Oxygen Concentration - - Weight 63.6 kg (140 lb 3.4 oz) 07/08/2020 8:39 AM WARBLE SAW OPERATOR Height 172.3 cm (5' 7.84) 07/08/2020 8:39 AM WARBLE SAW OPERATOR Body Mass Index 21.42 07/08/2020 8:39 AM WARBLE SAW OPERATOR Plan of Treatment Health Maintenance Due Date Last Done Comments COVID-19 Vaccine (#1) 1980 HPV Vaccines Aged Out No longer eligib le based on patient's age to complete this topic Pneumococcal Vaccine: Pediatrics Aged Out No longer eligible based on (0 to 5 Years) and At-Risk patie nt's age to complete this Patients (6 to 64 Years) topic Insurance Payer Benefit Plan / Subscriber ID Effective Dates Phone Addre ss Type Group BCBS OF BCBS OF [id number] [place] [address] [place] [address] Care Teams Instructor Weaving Relationship Specialty Start Date End Date Deepika Rodriguez, CRO, LANDSCAPER PCP - General 04/07/[address] [place], [place] [id number]
--- OUTSIDE RECORDS SUMMARY | 2022-05-04 10:32 | XMS_ITS | Encounter Summary ---
:1980 Author Organization [facility] Address [address] [place] [address] Care Team Providers Name Role Phone Navya Elena MD Primary Care Provider Unavailable Reason for Referral Consultation (Routine) - Closed Specialty Diagnoses / Procedures Referred By Contact Refer red To Contact Dermatology Diagnoses Husam Souza MD Dermatology [address] [facility] [address] [place] [address] [place], [facility] [address] Phone: Fax: Referral ID Status Reason Start Date Expiration Date Visits V isits Requested Authorized [id number] Closed Specialty 03/18/2020 03/18/2021 1 1 Services Required Scheduling Instructions erythematous rash on right forehead Encounter Details Date Type Department Care Team Description 03/18/2020 Consult [facility] Husam Jackson MD Rash (Primary Dx) [address] [place] [address] Social History Tobacco Use Types Packs/Day Years [...] on file documented as of this encounter Progress Notes Husam Jackson MD - 03/18/2020 12:00 PM CDT CC: Right forehead lesion HPI: The patient is a 39-year-old female self-referred with regard to a lesion she feels developed on her right forehead several months ago after a sunburn. She feels it has a different sensation than the surrounding skin is somewhat tingly. When asked to indicate its location she gestures around the entire upper half of her right forehead. Exam: 39-year-old female with Springer 2 skin. She has a diffuse erythema and minimal flaking or hyperkeratosis present on the upper half of the right side of her forehead occupying approximately 40% of the right half of the forehead. It extends back into the hairline approximately 2 cm. There is no mass-effect other lesion associated with it. There is a single small 3 mm SKs which is beginning todevelop along the hairline. Impression: Flat macular rash right superior forehead. I see no lesion to biopsy is vaccine customer representative of this area. There is certainly nothing suspicious for malignancy. I discussed with her the possibility of trying Efudex treatment in case this is actinic keratosis but frankly it does not look like it.The best recommendation I can give her is to see a pleating supervisor and as we discussed and she decidedthat is what she would like to do and a referral was placed. documented in this encounter Plan of Treatment Scheduled Referrals Name Type Priority Associated Order Schedule Diagnoses Ambulatory referral Outpatient Referral Routine Rash O rdered: to Dermatology 03/18/2020 documented as of this encounter Visit Diagnoses Diagnosis Rash - Primary Rash and other nonspecific skin eruption documented in this encounter Care Teams Oncology Social Worker Relationship Specialty Start Date End Date Navya Elena MD PCP - General Family Medicine 07/13/19 documented as of this encounter
--- OUTSIDE RECORDS SUMMARY | 2022-05-04 10:32 | XMS_ITS | Encounter Summary ---
:1980 Author Organization [facility] Address [address] [place] [address] Care Team Providers Name Role Phone Unavailable Primary Care Provider Unavailable Encounter Details Date Type Department Care Team Description 10/16/[address] [facility] Dewey Lawrence AP RN, C.N.P., D.N.P. [address] [place] [phone] (Wo rk) Social History Tobacco [...] - - Height 170 cm (5' 6.93) 10/16/2014 9:54 AM CDT Body Mass Index - - documented in this encounter Medications at Time of Discharge Medication Sig Dispensed Refills Start Date End Date tetrahydrozoline (Visine) 0.05 1 drop as needed. 0 08/26/2008 % ophthalmic solution documented as of this encounter Miscellaneous Notes Miscellaneous - Dewey Lawrence APRN, C.N.P. - 10/17/2014 7:26 AM CDT Results Notification Document Contains Addenda Addendum by RUBÉN LINDSEY RN on 17 October 2014 12:35:13 CDT Updated patient. Addendum by RUBÉN LINDSEY RN on 17 October 2014 12:32:13 CDT LVM for patient to call clinic. From: DEWEY LAWRENCE RN, SCRAP BREAKER To: [place] Family [facility] Nurse Randy; Sent: 10/17/2014 07:26:01 CDT Show up: 10/17/2014 07:25:00 CDT Subject: Results Notification Please call pt with results- I have sent a letter but want her to adjust her meds. I did reorder. TSH is elevated. This indicates that we should increase your Reform to 45mg daily (3 tabs). We will need to again recheck your TSH in 3 months. Results: Date Result Name Ind Value Ref Range 10/16/2014 10:05 TSH (H) 6.05 mIU/L (0.27 - 4.20) Source: OneRecruit Document Id: [id number] Miscellaneous - Dewey Lawrence, ALEXEY, C.N.P. - 10/17/2014 7:24 AM CDT Normal Results Letter 17 October 2014 HATTIE BRENNER [address] [facility] [address] Dear HATTIE BRENNER, Your results from the following thyroid test is elevated. This indicates that we should increase your Reform to 45mg daily (3 tabs). We will need to again recheck your TSH in 3 months. My hope is, oncein normal level, you will feel more energy. If you have questions or concerns, please do not hesitate to call our office. Result Name Current Result Previous Result Normal Range TSH (mIU/L) (H) 6.05 10/16/2014 (H) 4.77 07/13/2014 0.27 - 4.20 Sincerely, DEWEY LAWRENCE [address] [address] Electronic Signature Electronically Signed By: DEWEY LAWRENCE RN, SCRAP BREAKER On: 17 October 2014 This document has images extracted. Source: OneRecruit Document Id: [id number] Miscellaneous - Conversion, Historical Provider Ser - 10/16/2014 11:59 PM CDT Coding Summary-Paper Based CODING DATE: 10/23/2014 FINAL [place] [facility] STATUS: * Discharged to Home or Self Care PAYOR: [employer] ADMIT DX: 244.9 Unspecified Hypothyroidism REASON FOR VISIT DX: 244.9 Unspecified Hypothyroidism FINAL DX: PRINCIPAL: 244.9 Unspecified Hypothyroidism SECONDARY: PROCEDURES DOCTOR NAME DATE NOTE: The code number assigned matches the documented diagnosis and / or procedure in the patient's chart. However, the narrative phrase printed from the coding software may appear abbreviated, or result in slightly different terminology. Coded By: ASHLEY DOWD Date Saved: 10/23/2014 10:57 am Source: [facility] POWERCHART Document Id: [id number] documented in this encounter Plan of Treatment Not on filedocumented as of this encounter Procedures Procedure Name Priority Date/Time Associated Diagnosis Comme nts THYROID-STIMULATING Routine 10/16/2014 10:05 AM R esults for this HORMONE-SENSITIVE CDT procedure are in (S-TSH) the results section. documented in this encounter Results (ABNORMAL) Thyroid-Stimulating Hormone-Sensitive (s-TSH) (10/16/2014 10:05 AM CDT) P athologist Signature TSH 6.05 (H) 0.27 - POWERCHART (Thyrotropin) 4.20 MIUL Specimen (Source) Anatomical Collection Method Collection Time Re ceived Time Location / / Volume Laterality Blood 10/16/2014 10:05 AM CDT Dewey Lawrence APRN, C.N.P., D.N.P. LAB BLOOD ADD-ON Performing Organization Address City/State/ZIP Code Phon e Number POWERCHART documented in this encounter Visit Diagnoses Not on filedocumented in this encounter
--- OUTSIDE RECORDS SUMMARY | 2022-05-04 10:32 | XMS_ITS | Encounter Summary ---
:1980 Author Organization [facility] Address [address] [place] [address] Care Team Providers Name Role Phone Unavailable Primary Care Provider Unavailable Encounter Details Date Type Department Care Team Description 08/29/2013 Hospital Encounter HX [facility] Dewey Li, MIKE RN, C.N.P., D.N.P. [address] [place], [place] [phone] (Wo rk) Social History [...] Miscellaneous - Dewey Li, ALEXEY, C.N.P. - 08/30/2013 6:44 AM CST Normal Results Letter 30 August 2013 HATTIE THAKUR [address] [facility] [phone] Dear HATTIE THAKUR, I am pleased to report that your results from the following Thyroid test is in normal range. It is low side of normal but normal. No change in your medication but Lets plan to recheck it again in 6 months. If you have questions or concerns, please do not hesitate to call our office. Result Name Current Result Previous Result Normal Range TSH (mcIU/mL) 0.38 08/29/2013 (H) 5.19 04/26/2013 (H) 9.10 01/16/2013 0.30 - 5.00 Sincerely, DEWEY LI [address] [place] [address] Electronic Signature Electronically Signed By: DEWEY LI RN, PLASTIC CARD GRADER CARDROOM On: 30 August 2013 This document has images extracted. Source: [facility] POWERCHART Document Id: [id number] Electronically signed by Conversion, [facility] Director Business Development [id number] at 01/05/2017 7:45 AM CDT documented in this encounter Plan of Treatment Not on filedocumented as of this encounter Procedures Procedure Name Priority Date/Time Associated Diagnosis Comme nts THYROID-STIMULATING Routine 08/29/2013 1:15 PM Re sults for this HORMONE-SENSITIVE PATIENT CARE procedure are in (S-TSH) the results section. documented in this encounter Results Thyroid-Stimulating Hormone-Sensitive (s-TSH) (08/29/2013 1:15 PM PATIENT CARE) P athologist Signature TSH 0.38 0.30 - 5.00 POWERCHART (Thyrotropin) MCIUML Specimen (Source) Anatomical Collection Method Collection Time Re ceived Time Location / / Volume Laterality Blood 08/29/2013 1:15 PM PATIENT CARE Dewey Li APRN, C.N.P., D.N.P. LAB BLOOD ADD-ON Performing Organization Address City/State/ZIP Code Phon e Number POWERCHART documented in this encounter Visit Diagnoses Not on filedocumented in this encounter
--- OUTSIDE RECORDS SUMMARY | 2022-05-04 10:32 | XMS_ITS | Encounter Summary ---
:1980 Author Organization [facility] Address [address] [place] [address] Care Team Providers Name Role Phone Navya Elena MD Primary Care Provider Unavailable Encounter Details Date Type Department Care Team Description 07/08/2020 Lab [place] Intermittent palpitations; [address] [facility] [place] [address] Social History Tobacco Use Types Packs/Day Years [...] Name Priority Date/Time Associated Diagnosis Comme nts THYROPEROXIDASE (TPO) Routine 07/08/2020 9:26 Acquired Res ults for this AB AM METALS SALES REPRESENTATIVE hypothyroidism procedure are in the results section. THYROID FUNCTION Routine 07/08/2020 9:26 Intermittent Results for this [place] AM METALS SALES REPRESENTATIVE palpitations procedure are in Acquired the results hypothyroidism section. T4, FREE Routine 07/08/2020 9:26 Intermittent Results for this AM METALS SALES REPRESENTATIVE palpitations procedure are in Acquired the results hypothyroidism section. documented in this encounter Results (ABNORMAL) T4, free (07/08/2020 9:26 AM METALS SALES REPRESENTATIVE) P athologist Signature Free T4 0.52 (L) 0.78 - 2.19 07/09/2020 [facility] ng/dL 1:05 AM METALS SALES REPRESENTATIVE [facility] Comment: The results from this or any other diagn ostic test should be used and interpreted only in the context of the overall clinical picture. Heterophilic antibodies in serum or plas ma [...] Time (Source) Location / / Volume Laterality 07/08/2020 9:26 AM 0 METALS SALES REPRESENTATIVE 12:58 PM METALS SALES REPRESENTATIVE Deepika Rodriguez APRN, CNP LAB BLOOD ORDERABLES Performing Organization Address City/[facility] Code Phon e Number [facility] [address] [place] [address] (ABNORMAL) Thyroperoxidase (TPO) Ab (07/08/2020 9:26 AM METALS SALES REPRESENTATIVE) Patholo gist Method Time Signature Thyroid 291.2 (H) <9.0 07/09/2020 [facility] Peroxidase IU/mL 9:28 AM [facility] (TPO) Ab Comment: Test Performed by: [facility] [address] [place] [address] Wire Spooler: Tomy Hernández M.D. Ph. D.; CLIA# [id number] Specimen Anatomical Collection Method Collection Time Receive d Time (Source) Location / / Volume Laterality Blood (Blood, 07/08/2020 9:26 AM 07/08/20 20 2:01 Venous) METALS SALES REPRESENTATIVE PM METALS SALES REPRESENTATIVE Deepika Rodriguez APRN, CNP LAB BLOOD ORDERABLES Performing Organization Address City/[facility]/ZIP Code Phon e Number [facility] see result attachment for specific address (ABNORMAL) Thyroid Function [place] (07/08/2020 9:26 AM METALS SALES REPRESENTATIVE) Analysis Performed At Path logist Time Signature TSH, Sensitive 9.91 (H) 0.46 - 07/08/2020 [place] 4.68 mIU/L 2:04 PM METALS SALES REPRESENTATIVE [facility] Comment: The results from this [...] Location / / Volume Laterality Blood (Blood, 07/08/2020 9:26 AM 07/08/20 20 Venous) METALS SALES REPRESENTATIVE 12:58 PM METALS SALES REPRESENTATIVE Deepika Rodriguez APRN, CNP LAB BLOOD ORDERABLES Performing Organization Address City/State/ZIP Code Phon e Number [facility] [address] [place] [address] documented in this encounter Visit Diagnoses Diagnosis Intermittent palpitations Acquired hypothyroidism Unspecified hypothyroidism documented in this encounter Care Teams Plasma Table Operator Relationship Specialty Start Date End Date Navya Elena MD PCP - General Family Medicine 07/13/19 documented as of this encounter
--- OUTSIDE RECORDS SUMMARY | 2022-05-04 10:32 | XMS_ITS | Encounter Summary ---
:1980 Author Organization [facility] Address [address] [place] [id number] Care Team Providers Name Role Phone Unavailable Primary Care Provider Unavailable Encounter Details Date Type Department Care Team Description 06/04/2014 Hospital Encounter HX [facility] ED Brynn Tanner M.D. [address] [place] [address] [phone] (Wo rk) Social History Tobacco Use Types [...] Sign Reading Time Taken Comments Blood Pressure 120/78 06/04/2014 6:20 AM CDT Pulse 85 06/04/2014 6:20 AM CDT Temperature - - Respiratory Rate 20 06/04/2014 6:20 AM CDT Oxygen Saturation - - Inhaled Oxygen Concentration - - Weight - - Height 170 cm (5' 6.93) 06/04/2014 8:36 AM CDT Body Mass Index - - documented in this encounter Discharge Summaries Matt Morrison R.N. - 06/04/2014 8:54 AM CDT ED Discharge Instructions [address] [address] Name: HATTIE BRENNER Date of : 1980 12:00 AM Visit Date: 06/04/2014 6:12 AM [facility] Number: [id number] Address: [address] [place] [phone] Primary Care Provider: DEWEY LAWRENCE RN, CONTRACT CLERK [employer] IMPORTANT: [facility] in [place] would like to thank you for allowing us to assist you with your healthcare needs. The following includes patient education materials and informationregarding your injury/illness. Diagnosis: Headache Follow-Up Instructions: With: Address: When: DEWEY LAWRENCE [address] [place] [address] Business (1) In 3 days 06/07/2014 Comments: Your Upcoming Appointments: Date Time Location Provider No Appointments found Patient Education Materials: 07911 Acute Sinusitis Acute sinusitis is inflammation (irritation and swelling) of the sinuses. It is often due to a bacterial or viral infection of the sinuses. This may follow a cold or other upper respiratory illness. Your doctor can help you find relief. Read on to learn more. What Is Acute Sinusitis? Sinuses are air-filled spaces in the skull behind the face. They are kept moist and clean by a lining of mucosa. Things such as pollen, smoke, and chemical fumes can irritate the mucosa. It can then become inflamed (swell up). As a response to irritation, the mucosa makes more mucus and other fluids. Tiny hairlike cilia cover the mucosa. Cilia help transport mucus toward the opening of the sinus. Toomuch mucus may cause the cilia to stop working. This blocks the sinus opening. A buildup of fluid inthe sinuses then leads to symptoms such as pain and pressure. It an also encourage growth of bacteria in the sinuses. Common Symptoms of Acute Sinusitis You may have: ?? Facial pain ?? Headache ?? Fever ?? Postnasal drip ?? Nasal congestion ?? Redness of facial skin over sinus Diagnosis of Acute Sinusitis The doctor will ask about your symptoms and medical history. An evaluation will be done. A culture (sample of mucus) is sometimes taken to check for bacteria. X-rays may be taken to view fluid in the sinuses. Treatment of Acute Sinusitis Treatment is designed to unblock the sinus opening and help the cilia work again. Antihistamine and decongestant medications may be prescribed. These can reduce inflammation and decrease fluid production. If a bacterial infection is present, it can be treated with antibiotic medication. This medication should be taken until it is gone, even if you feel better. Note that antibiotics will not help a viral infection. ?? 2878-9789 [employer], [address] [place] [address], [place] [address]. All rights reserved. Thi s information is not intended as a substitute for professional medical care. Always follow your healthcare professional's instructions. [id number] HYPOTHYROIDISM You have been diagnosed with hypothyroidism. This means your thyroid g land is not producing enough thyroid hormone. This hormone is important to body growth and metabolism. If you don't have enough, many body processes slow down, causing mental and physical sluggishness. A variety of other symptoms may occur and vary from mild to severe. The most severe form of this illness is called myxedema. Signs of hyperthyroidism (too much thyroid hormone, which can be a side effect of treatment for low thyroid): ?? Restlessness, nervousness ?? Increased appetite with weight loss ?? Excess sweating ?? Palpitations or irregular heartbeat ?? Feeling overheated Signs of hypothyroidism (too little thyroid hormone): ?? Fatigue or sluggishness ?? Difficulty concentrating or thinking clearly; forgetfulness ?? Dry skin, hair loss ?? Depression ?? Unexpected weight gain ?? Feeling cold, or cold hands and/or feet HOME CARE: 1. Take your medicine exactly as directed at the same time every day. Don't take thyroid pills with soy milk since this interferes with absorption. 2. After taking your thyroid medicine: o Wait 4 hours before eating or drinking anything that contains soy. o Wait 4 hours before taking iron supplements, antacids that contain either calcium or aluminum hydroxide, or calcium supplements (regular amounts of cows milk are probably okay). 3. Do not stop treatment on your own. If you do, your symptoms will return. 4. Eat a high-fiber, low-calorie diet to relieve constipation and maintain a healthy weight. 5. Get regular exercise. Talk to your doctor about an exercise program that is right for you. FOLLOW UP with your doctor or as advised by our staff. Your thyroid level will need to be monitored for the rest of your life. During your routine visits, tell your doctor about any symptoms such as the ones listed below. GET PROMPT MEDICAL ATTENTION if any of the following occur: ?? Extreme fatigue ?? Puffy hands, face, or feet ?? Chest pain or trouble breathing ?? Palpitations or irregular heartbeat Confusion or loss of consciousness ?? [id number] [facility], [address] [facility], [place] [address]. All rights reserved. This information is not intended as a substitute for professional medical care. Always follow your healthcare professional's instructions. thyroid_stimulating_hormone Thyroid Stimulating Hormone Does this test have other names? TSH, thyrotropin test What is this test? This is a blood test that measures your level of thyroid stimulating hormone (TSH). Health care providers use this test to diagnose problems affecting the thyroid. Your thyroid is a butterfly-shaped gland located near the base of your throat above your collarbones. The thyroid makes two hormones, T3 and T4, that affect your energy levels, mood, weight, and other important parts of your health. The pituitary gland in your brain makes a chemical called TSH, which triggers your thyroid to make T3 and T4. When your pituitary gland produces too much or too little TSH, this can cause your thyroid to be overactive (hyperthyroidism) or underactive (hypothyroidism). Why do I need this test? You may need this test if you have symptoms of thyroid problems. Symptoms of hyperthyroidism include: ?? Anxiety ?? Irritability ?? Weakness in the arms and legs ?? Insomnia ?? Hand tremors ?? Sweating ?? Low tolerance for heat ?? Irregular heartbeat ?? Fatigue ?? Unexplained weight loss ?? More frequent bowel movements than usual ?? Eye irritation or bulging eyes, which are symptoms of Graves' disease, a common cause of hyperthyroidism ?? Menstrual irregularity ?? Enlarged breasts and erectile dysfunction in men Symptoms of hypothyroidism include: ?? Fatigue ?? Low tolerance for cold ?? Weight gain ?? Hair loss ?? Eye swelling ?? Slower heart rate ?? Shortness of breath ?? Constipation ?? Menstrual irregularity ?? Loss of consciousness, although this is rare Health care providers may also check TSH levels when diagnosing depression and dementia. What other tests might I have along with this test? In addition to T4, you may have other tests of thyroid-related substances, including: ?? T4 ?? Free T4 ?? T3 ?? Free T3 ?? Thyroglobulin, which helps produce and store thyroid hormones ?? TSH receptor-stimulator antibodies, which is used to diagnose Graves' disease ?? Thyroid antiperoxidase antibodies and thyroglobulin antibodies, which are used to diagnose a condition called Mavis's thyroiditis What do my test results mean? Many things may affect your lab test results. These include the method each lab uses to do the test.Even if your test results are different from the normal value, you may not have a problem. To learn what the results mean for you, talk with your health care provider. The normal range for TSH varies by lab, but the usual range is 2 to 11 microunits per milliliter (mU/mL). Low TSH may mean you have hyperthyroidism, and high TSH can mean hypothyroidism. The results of other thyroid tests can help to determine the cause. How is this test done? The test requires a blood sample, which is drawn through a needle from a vein in your arm. Does this test pose any risks? Taking a blood sample with a needle carries risks that include bleeding, infection, bruising, or feeling dizzy. When the needle pricks your arm, you may feel a slight stinging sensation or pain. Afterward, the site may be slightly sore. What might affect my test results? Some medications keep the pituitary gland from releasing TSH. These include: ?? Phenothiazines ?? Phenytoin ?? Dopamine ?? Glucocorticoids Other drugs that can affect thyroid tests include: ?? Beta blockers ?? Dexamethasone ?? Enoxaparin ?? Furosemide ?? Heparin ?? NSAIDs ?? Salicylates How do I get ready for this test? Tell your doctor if you're taking medication. Certain medications can affect thyroid test results. Be sure your doctor knows about all medicines, herbs, vitamins, and supplements you are taking. Thisincludes medicines that don't need a prescription and any illicit drugs you may use. ?? [id number] [place] [address]. All rights reserved. This information is not intended as a substitute for professional medical care. Always follow your healthcare professional's instructions. [address] Treating Thyroid Problems Your doctor has diagnosed you with a thyroid problem. The doctor or thyroid specialist will work with you to create a treatment plan. Even if you dont have symptoms, getting proper care is important. The most common types of treatment are covered here. Treating Hypothyroidism There is no cure for hypothyroidism. But treatment can relieve most or all of your symptoms. Treatment for hypothyroidism involves taking thyroid hormone pills daily. ?? Thyroid hormone pills replace the hormone your thyroid doesnt make. Chances are, you will need totake a daily hormone pill for the rest of your life. Over time, your dosage may be adjusted. The medication has minimal side effects if the dosage is correct. However, if the dosage is too high, you may have hyperthyroid symptoms. If it is too low, you may have hypothyroid symptoms. Be sure to tell your doctor if you notice any symptoms of thyroid problems. Treating Hyperthyroidism The three main treatments for hyperthyroidism may be used alone or in combination with beta-blockers(drugs that can reduce symptoms caused by too much thyroid hormone). ?? Antithyroid medication can reduce the amount of thyroid hormone made by the thyroid gland. Reactions from this medication are rare. Talk with your doctor for more information. ?? Radioiodine ablation is the most common treatment for hyperthyroidism. It involves taking a pill or liquid dose of radioactive iodine. This treatment destroys the thyroid cells that are making too much hormone. Radioiodine ablation may result in the need for daily thyroid hormone pills. ?? Surgery can be an effective treatment for hyperthyroidism. It involves removing part or all of the thyroid gland. After surgery, you may need to take daily thyroid hormone pills. Treating Nodules If you have benign nodules, you may not need treatment right away. Instead, your doctor may suggest regular exams and ultrasound tests to see if the nodules grow. If treatment is needed, it may include: ?? Surgery may be used to treat malignant nodules or those that grow or cause symptoms. Surgery involves removing part or all of your thyroid gland. It may be followed by radioiodine ablation. Afterward, you may need to take daily thyroid hormone pills. ?? Thyroid hormone pills may be used to help treat and prevent benign nodules. This treatment is less common than surgery. Side effects of these pills may include hyperthyroid symptoms, such as bone loss or heart problems. Radioiodine Ablation: Things to Know This is a very safe treatment. Your doctor will talk with you about any risks and possible complications.You will likely receive the iodine at the hospital and go home the same day. The risk from the radiation to yourself and others is very small. However, you may need to stay away from other people for several days. It is most important to avoid children and women during this time. ?? 2860-0574 [facility], [address] [place] [address], [place] [address]. All rights reserved. This information is not intended as a substitute for professional medical care. Always follow your healthcare professional's instructions. ED Tests and Procedures: Order Status Automated Diff-5 Part Completed XR Chest 2 Views Completed Thyroid Stimulating Hormone Completed Comprehensive Metabolic Panel Completed CBC (includes Auto Differential) Completed Discharge Prescriptions & Home Medications: Medication/Strength Dose Route Frequency Indications/Special Instructions/Comments/Notes amoxicillin-clavulanate (Augmentin 500 mg-125 mg oral tablet) 1 tab(s) Oral two times a day for 10 Days thyroid desiccated ([place] Thyroid 15 mg oral tablet) 15 mg Oral once a day Misc Prescription (Misc Prescription) Tumeric one tablet daily aspirin (aspirin) 81 mg Oral once a day metroNIDAZOLE topical (MetroCream 0.75% topical cream) 1 jannie Topical two times a day to cheeks, nose, chin and forehead for rosacea. Comment: Attention: If you have any medications at home not on this list, DO NOT take them until you contact your provider for clarification. Give a copy of your medication list to your primary care provider. Update your medication list any time medications or doses are changed and carry your medication list at all times in case of emergency. Medication Reconciliation: Reconciliation is a process of identifying the most accurate list of all medications a patient is taking - including name, dosage, frequency, and route - and using this list to provide to the patient information about how to take those medications. HATTIE BRENNER or octaviano has reviewed the home medications you have listed with us. Review the following instructions: You have NOT received any prescriptions and you have told us you are not currently taking any home medications You have NOT received any prescriptions. You have been provided a discharge medications list and you may CONTINUE taking your medications as previously prescribed by your regular providers. You have received the listed prescriptions and BEGIN all listed prescriptions as directed. Since you have listed no home medications, please check with your family doctor if you are taking any other medications. You have received the listed prescriptions and BEGIN all listed prescriptions as directed. Youhave been provided a discharge medications list and you may CONTINUE all home medications as previously prescribed by your regular providers. You have received the listed prescriptions and BEGIN all listed prescriptions as directed. Youhave been provided a discharge medications list. The following CHANGES have been made to your medication list; Otherwise, CONTINUE all home medications as previously prescribed by your regular provider. IMPORTANT: We examined and treated you today on an emergency basis only. This was not a substitute for, or an effort to provide, complete medical care. In most cases, you must let your doctor check youagain. Tell your doctor about any new or lasting problems. We cannot recognize and treat all injuries or illnesses in one Emergency Department visit. If you had special tests, such as EKG's or X- rays, we will review them again within 24 hours. We will call you if there are any new suggestions. Please follow the instructions above carefully. If you are being transferred to another facility your followup plan of care will be determined by the receiving facility. If you are a patient that is being discharged from the Emergency Department after receiving narcotics or other medications that may impair your judgment you may be a risk to yourself or others if you operate a motor vehicle. We recommend that you arrange a ride home with a responsible democrat. IOFE SALLY RAE , or responsible democrat have received this information and my questions have been answered. I have discussed any challenges I see with this plan with the nurse or physician. Patient Signature or Responsible Green Party/Relationship Date Time Provider Signature Date Time Medication Reconciliation: Reconciliation is a process of identifying the most accurate list of all medications a patient is taking - including name, dosage, frequency, and route - and using this list to provide to the patient information about how to take those medications. HATTIE BRENNER or kamilaee has reviewed the home medications you have listed with us. Review the following instructions: You have NOT received any prescriptions and you have told us you are not currently taking any home medications You have NOT received any prescriptions. You have been provided a discharge medications list and you may CONTINUE taking your medications as previously prescribed by your regular providers. You have received the listed prescriptions and BEGIN all listed prescriptions as directed. Since you have listed no home medications, please check with your family doctor if you are taking any other medications. You have received the listed prescriptions and BEGIN all listed prescriptions as directed. Youhave been provided a discharge medications list and you may CONTINUE all home medications as previously prescribed by your regular providers. You have received the listed prescriptions and BEGIN all listed prescriptions as directed. Youhave been provided a discharge medications list. The following CHANGES have been made to your medication list; Otherwise, CONTINUE all home medications as previously prescribed by your regular provider. IMPORTANT: We examined and treated you today on an emergency basis only. This was not a substitute for, or an effort to provide, complete medical care. In most cases, you must let your doctor check youagain. Tell your doctor about any new or lasting problems. We cannot recognize and treat all injuries or illnesses in one Emergency Department visit. If you had special tests, such as EKG's or X- rays, we will review them again within 24 hours. We will call you if there are any new suggestions. Please follow the instructions above carefully. If you are being transferred to another facility your followup plan of care will be determined by the receiving facility. If you are a patient that is being discharged from the Emergency Department after receiving narcotics or other medications that may impair your judgment you may be a risk to yourself or others if you operate a motor vehicle. We recommend that you arrange a ride home with a responsible democrat. OFE Schumacher SALLY RAE , or responsible democrat have received this information and my questions have been answered. I have discussed any challenges I see with this plan with the nurse or physician. Patient Signature or Responsible Green Party/Relationship Date Time Provider Signature Date Time This document has images extracted. Please consider using L2 for all your patient education needs. Source: [facility] POWERCHART Document Id: [id number] Matt Morrison R.N. - 06/04/2014 8:54 AM CDT ED Depart Summary [facility] Emergency Department Clinical Discharge Summary PERSON INFORMATION Name HATTIE BRENNER Age 34 Years 1980 12:00 AM Sex Female Language Cook Islander PCP DEWEY LAWRENCE RN, CONTRACT CLERK [employer] Marital Status Single Visit Id Visit Reason Medical problem - major; Headache Specialty Enc Type Emergency Med Service Emergency Medicine Referred by Track Group [facility] ED Discharge 06/04/2014 8:54 AM Tracking Id [id number] Checkout 06/04/2014 8:54 AM Checkin 06/04/2014 6:12 AM Acuity 3 -Urgent Dispo Type * Discharged to Home or Self Care Arrival 06/04/2014 6:12 AM Reg Status Complete LOS 000 02:42 Address: [address] [place] [phone] Comment: PROVIDER INFORMATION Provider Role Provider Contact Time ENIO TANNER MD ED Provider 06/04/14 06:20 ASPEN HUIZAR LABORER HOISTING Nurse 06/04/14 06:20 MATT MORRISON LABORER HOISTING Nurse 06/04/14 07:00 DIAGNOSIS Headache Comment: PATIENT EDUCATION INFORMATION Instructions: Acute Sinusitis; HYPOTHYROIDISM; Thyroid Stimulating Hormone; Treating Thyroid Problems Follow up: With: Address: When: DEWEY LAWRENCE [id number] [address] [facility] (3[employer] In 3 days 06/07/2014 Comments: Source: [facility] POWERCHART Document Id: [id number] documented in this encounter Medications at Time of Discharge Medication Sig Dispensed Refills Start Date End Date tetrahydrozoline (Visine) 0.05 1 drop as needed. 0 08/26/2008 % ophthalmic solution documented as of this encounter Nursing Notes Matt Morrison R.N. - 06/04/2014 7:39 AM CDT Pain Reassessed pain after Toradol injection. Patient states that her body does not feel as tense but still has the pain in her neck. When she moves her neck from side to side pain goes up into head. Toradol did not help this pain at all. Source: [employer] Document Id: [id number] documented in this encounter ED Notes Matt Morrison R.N. - 06/04/2014 8:47 AM CDT ED Disposition Summary ED Disposition Summary Entered On: 06/04/2014 8:47 CDT Performed On: 06/04/2014 8:47 CDT by MATT MORRISON RN ED Disposition Summary Accompanied By : Alone Mode of Discharge : Ambulatory Transportation : Private vehicle Nurse Receiving Report : coming to [employer] Printed Discharge Instructions Given to Patient : Yes Patient Status at Discharge from ED : Improved Comment : improved slightly MATT MORRISON RN - 06/04/2014 8:47 CDT Source: [employer] Document Id: [id number] CDT!9 Matt Morrison R.N. - 06/04/2014 8:47 AM CDT ED Pain Assessment ED Pain Assessment Entered On: 06/04/2014 8:48 CDT Performed On: 06/04/2014 8:47 CDT by MATT MORRISON RN Pain Assessment Pain Symptoms : Yes MATT MORRISON RN - 06/04/2014 8:47 CDT Source: [employer] Document Id: [id number] CDT!3 Matt Morrison R.N. - 06/04/2014 7:39 AM CDT ED Nurse Reassess ED Nurse Reassess Entered On: 06/04/2014 7:39 CDT Performed On: 06/04/2014 7:39 CDT by MATT MORRISON RN Pain Assessment Pain Symptoms : Yes MATT MORRISON RN - 06/04/2014 7:39 CDT Pain Pain Assessment Grid Pain 1 Location : Head Intensity : 9 MATT MORRISON RN - 06/04/2014 7:39 CDT Source: [facility] [employer] Document Id: [id number] CDT!8 Enio Tanner M.D. - 06/04/2014 6:41 AM CDT Medical problem - major Patient: HATTIE BRENNER Age: 34 years Sex: Female : 1980 Author: ENIO TANNER MD Attachments: None Associated Diagnosis: Sinusitis Acute NOS Basic Information Additional information: Chief Complaint from Nursing Triage Note : Chief Complaint Description 06/04/2014 6:23 CDT Chief Complaint Description see triage 06/04/2014 6:20 CDT Chief Complaint Description Pt presents to Er with RODRIGUEZ that started wednesday. Pain radiating from neck to head. Also states pain radiating down her left side of chest. Pain 05/18 . History of Present Illness The patient presents with feeling sick, Headache, neck stiffness, sore throat , left ear pain., Woke up Wednesday am with stiff neck , neck discomfort. and Boyfriend noticed some lumps in her left neck. Patient has sore throat and left ear discomfort.. The onset was 2 days ago. The course/duration ofsymptoms is constant and worsening. Location: neck. The character of symptoms is pain. The degree atpresent is moderate. Risk factors consist of Hypothyroidism.. Therapy today: prescription medications including Armor thyroid.. Associated symptoms: denies chest pain, denies abdominal pain, denies nausea, denies vomiting, denies shortness of breath, denies fever, denies chills and denies headache. Patient is currently getting treatment for her Hypothyroidism and getting her Meds adjusted.. Review of Systems Constitutional symptoms: No fever, no chills or no sweats. Eye symptoms: Vision unchanged, but no recent vision problems. ENMT symptoms: Ear pain, sore throat, nasal congestion and sinus pain. Respiratory symptoms: No shortness of breath or no orthopnea. Cardiovascular symptoms: No chest pain or no palpitations. Gastrointestinal symptoms: No abdominal pain, no nausea or no vomiting. Genitourinary symptoms: No dysuria. Neurologic symptoms: Headache, but no dizziness, no altered level of consciousness, no numbness or no tingling. Additional review of systems information: All other systems reviewed and otherwise negative. Health Status Allergies: Allergic Reactions (Selected) NKA. Past Medical/ Family/ Social History Medical history: Active Allergy Seasonal (477.9): Onset in the month of 12/2005 at 25 years Numbness (782.0): Onset in the month of 07/2004 at 24 years Palpitations (785.1): Onset in the month of 04/2004 at 23 years. Surgical history: Pap smear ([id number]) in 2010 at 31 Years. Lump ([id number]). Comments: 01/16/2013 10:12 - KETAN KEANE LPN Sternal benign Myringotomy including aspiration and/or eustachian tube inflation requiring general anesthesia (63008). Comments: 01/16/2013 10:13 - KETAN KEANE LPN as child. Family history: CA - Breast cancer Aunt Diabetes mellitus Grandmother . Physical Examination Vital Signs: Vital Signs 06/04/2014 6:20 CDT Temperature Core 36.5 DegC Peripheral Pulse Rate 85 /min Respiratory Rate 20 /min SpO2 100 % Systolic Blood Pressure 120 mmHg Diastolic Blood Pressure 78 mmHg Mean Arterial Pressure 92 mmHg , Measurements 06/04/2014 6:20 CDT Height 170 cm Dosing Weight 62.00 kg NA Estimated Weight 62 kg , SpO2 06/04/2014 6:20 CDT SpO2 100 % . General: Alert and mild distress. Skin: Warm and moist. Head: Normocephalic and atraumatic. Neck: Supple, trachea midline and No nuchal rigidity , minimal left cervical lymphadenopathy is noticed.. Eye: Pupils are equal, round and reactive to light, extraocular movements are intact, normal conjunctiva and vision unchanged. Ears, nose, mouth and throat: Tympanic membranes clear, oral mucosa moist and no pharyngeal erythemaor exudate. Cardiovascular: Regular rate and rhythm, No murmur and Normal peripheral perfusion. Respiratory: Lungs are clear to auscultation, respirations are non-labored and breath sounds are equal. Chest wall: No tenderness and No deformity. Back: Nontender, Normal range of motion and Normal alignment. Musculoskeletal: Normal ROM. normal strength. no tenderness. no swelling. Gastrointestinal: Soft, Nontender, Non distended, Normal bowel sounds and No organomegaly. Genitourinary: No tenderness, no discharge and normal external genitalia. Neurological: Alert and oriented to person, place, time, and situation, No focal neurological deficit observed, CN II-XII intact, normal sensory observed and normal motor observed. Lymphatics: No lymphadenopathy. Psychiatric: Cooperative and appropriate mood & affect. Medical Decision Making OrdersLaunch Orders Laboratory: CBC (includes Auto Differential) (Order Processing): Stat, 06/04/2014 6:43 CDT, Once Comprehensive Metabolic Panel (Order Processing): Stat, 06/04/2014 6:43 CDT, Once Thyroid Stimulating Hormone (Order Processing): Stat, 06/04/2014 6:43 CDT, Once, Launch Orders Radiology: CXR 2 Views (Order Processing): 06/04/2014 6:43 CDT, headache, chest discomfort., Stat, Patient Bed,Once, 06/04/2014 6:43 CDT, [facility] ED, Launch Orders Pharmacy: Toradol (Order Processing): 30 mg, IV Push, Once, Launch Orders Pharmacy: Toradol (Order Processing): 30 mg, IM, Once Toradol (Discontinue Processing): 30 mg, IV Push, Once. Results review:Lab results : Lab View 06/04/2014 6:47 CDT Hgb 12.4 g/dL Hct 38.4 % WBC 6.9 x10(9)/L RBC 4.26 x10(12)/L MCV 90.1 fL RDW 11.8 % LOW Platelet 206 x10(9)/L Neutro Absolute 4.55 10(9)/L Lymph Absolute 1.44 x10(9)/L [place] Absolute 0.68 x10(9)/L Eos Absolute 0.24 x10(9)/L Baso Absolute 0.01 x10(9)/L Differential? Auto Sodium Lvl 141.8 mM/L Potassium Lvl 4.7 mmol/L Chloride 105 mmol/L CO2 28.9 mmol/L AGAP 13 mmol/L Alkaline Phosphatase 42 U/L Glucose Lvl 92 mg/dL Creatinine 0.69 mg/dL EGFR (MDRD) >60 mL/min/1.73m2 EGFR (MDRD) >60 mL/min/1.73m2 BUN 11 mg/dL Calcium Lvl 9.3 mg/dL Protein Total 6.7 g/dL Albumin Lvl 4.2 g/dL AST 14 U/L ALT 10 U/L LOW Bili Total 0.5 mg/dL TSH 7.42 mcIU/mL HI . Chest X-Ray:No acute disease process. Reexamination/ Reevaluation Vital signs results included from flowsheet : Vital Signs 06/04/2014 8:36 CDT Temperature Core 37.4 DegC 06/04/2014 6:20 CDT Temperature Core 36.5 DegC Peripheral Pulse Rate 85 /min Respiratory Rate 20 /min SpO2 100 % Systolic Blood Pressure 120 mmHg Diastolic Blood Pressure 78 mmHg Mean Arterial Pressure 92 mmHg Course: improving. Pain status: decreased. Assessment: exam improved. Impression and Plan Diagnosis Sinusitis Acute NOS (Discharge, Emergency medicine, Medical) Headache, hypothyroidism Plan Condition: Stable. Disposition: Discharged: to home. Patient was given the following educational materials: Acute Sinusitis, HYPOTHYROIDISM, Thyroid Stimulating Hormone, Treating Thyroid Problems. Follow up with: DEWEY LAWRENCE In 3 days 06/07/2014. Counseled: Patient, Friend, Regarding diagnosis, Regarding diagnostic results, Regarding treatment plan, Regarding prescription, Patient indicated understanding of instructions. Notes: Patient is treated with antibiotics, she will follow up with her PC provider for further evaluation and possible referral to specialist if symptoms persist or change. Was advised if start havinghigh fever,worsening of headache then should come to the ER.. Electronically Signed By: ENIO TANNER MD On: 06/04/2014 08:59 AM Modified by and Electronically Signed by: ENIO TANNER MD On: 06/04/2014 08:59 AM Source: [facility] POWERCHART Document Id: [id number]} Aspen Huizar R.N. - 06/04/2014 6:23 AM CDT ED Primary Assessment Document Has Been Updated ED Primary Assessment Entered On: 06/04/2014 6:23 CDT Performed On: 06/04/2014 6:23 CDT by ASPEN HUIZAR RN Reason For Visit (As Of: 06/04/2014 06:23:52 CDT) Problems(Active) Allergy Seasonal (ICD-9-CM :477.9 ) Name of Problem: Allergy Seasonal ; Onset Date: 12/2005 ; Confirmation: Provisional ; Classification: Medical ; Code: 477.9 ; Contributor System: [employer] ; Last Updated: 12/31/2006 0:00 CDT ; Life Cycle Date: 12/31/2005 ; Life Cycle Status: Active ; Vocabulary: ICD-9-CM None (SNOMED CT :102013848 ) Name of Problem: None ; Onset Date: 01/16/2013 ; Recorder: KETAN KEANE LPN; Confirmation: Confirmed ; Classification: Nursing ; Code: 720826931 ; Contributor System:[employer] ; Last Updated: 01/16/2013 10:11 CDT ; Life Cycle Date: 01/16/2013 ; Life Cycle Status: Active ; Responsible Provider: KETAN KEANE LPN; Vocabulary: SNOMED CT Numbness (ICD-9-CM :782.0 ) Name of Problem: Numbness ; Onset Date: 07/2004 ; Confirmation: Provisional ; Classification: UPDATE NEEDED ; Code: 782.0 ; Contributor System: [employer] ; Last Updated: 04/11/2007 0:00 CDT ; Life Cycle Date: 07/16/2004 ; Life Cycle Status: Active ; Vocabulary: ICD-9-CM Palpitations (ICD-9-CM :785.1 ) Name of Problem: Palpitations ; Onset Date: 04/2004 ; Confirmation: Provisional ; Classification: Medical ; Code: 785.1 ; Contributor System: [employer]_SYS ; Last Updated: 01/18/2007 0:00 CDT ; Life Cycle Date: 04/24/2004 ; Life Cycle Status: Active ; Vocabulary: ICD-9-CM Diagnoses(Active) Headache Date: 06/04/2014 ; Diagnosis Type: Reason For Visit ; Confirmation: Complaint of ; ClinicalDx: Headache ; Classification: Medical ; Clinical Service: Non-Specified ; Code: PNED ; Probability:0 ; Diagnosis Code: [id number] Triage Chief Complaint Description : see triage Mode of Arrival ED : Private vehicle, Ambulatory Track : Medical Languages : Cook Islander Treatments Prior to Arrival : None Are you ? : No Is Patient Female and 13-50 no hysterectomy : Yes Status : Patient denies ASPEN HUIZAR RN - 06/04/2014 6:23 CDT Pain Assessment Pain Symptoms : Yes ASPEN HUIZAR RN - 06/04/2014 6:23 CDT Respiratory Airway : Patent Respirations : Unlabored Respiratory Pattern : Regular ASPEN HUIZAR RN - 06/04/2014 6:23 CDT Cardiovascular Heart Rhythm : Regular Skin Color : Normal for ethnicity Skin Description : Dry Skin Temperature : Warm ASPEN HUIZAR RN - 06/04/2014 6:23 CDT Neurological Last Well Time Known : Not applicable Level of Consciousness : Alert Orientation : Oriented x 3 Characteristics of Speech : Appropriate for age ASPEN HUIZAR RN - 06/04/2014 6:23 CDT ED Psychosocial Affect/Behavior : Calm Domestic Abuse Concerns : None SAPEN HUIZAR RN - 06/04/2014 6:23 CDT Gastrointestinal Nutrition ED : Adequate ASPEN HUIZAR RN - 06/04/2014 6:23 CDT Musculoskeletal Fall Prevention Education Provided : ASPEN HOUSER RN - 06/04/2014 6:23 CDT Social Habits Tobacco Use/Currently Using : No Smoking Status : Never smoker ASPEN HUIZAR RN - 06/04/2014 6:23 CDT Tobacco Use Grid Last Use : never ASPEN HUIZAR RN - 06/04/2014 6:23 CDT Alcohol Use Grid Alcohol Use : No ASPEN HUIZAR RN - 06/04/2014 6:23 CDT Recreational Drug Use Grid Drug Use : None ASPEN HUIZAR RN - 06/04/2014 6:23 CDT Source: [facility] [employer] Document Id: [id number] CDT!45 Aspen Huizar R.N. - 06/04/2014 6:20 AM CDT ED Triage Assessment Document Has Been Updated ED Triage Assessment Entered On: 06/04/2014 6:23 CDT Performed On: 06/04/2014 6:20 CDT by ASPEN HUIZAR RN Reason For Visit (As Of: 06/04/2014 06:23:01 CDT) Problems(Active) Allergy Seasonal (ICD-9-CM :477.9 ) Name of Problem: Allergy Seasonal ; Onset Date: 12/2005 ; Confirmation: Provisional ; Classification: Medical ; Code: 477.9 ; Contributor System: [employer] ; Last Updated: 12/31/2006 0:00 CDT ; Life Cycle Date: 12/31/2005 ; Life Cycle Status: Active ; Vocabulary: ICD-9-CM None (SNOMED CT :461601317 ) Name of Problem: None ; Onset Date: 01/16/2013 ; Recorder: KETAN KEANE LPN; Confirmation: Confirmed ; Classification: Nursing ; Code: 979336615 ; Contributor System:PowerChart ; Last Updated: 01/16/2013 10:11 CDT ; Life Cycle Date: 01/16/2013 ; Life Cycle Status: Active ; Responsible Provider: KETAN KEANE LPN; Vocabulary: SNOMED CT Numbness (ICD-9-CM :782.0 ) Name of Problem: Numbness ; Onset Date: 07/2004 ; Confirmation: Provisional ; Classification: UPDATE NEEDED ; Code: 782.0 ; Contributor System: [employer] ; Last Updated: 04/11/2007 0:00 CDT ; Life Cycle Date: 07/16/2004 ; Life Cycle Status: Active ; Vocabulary: ICD-9-CM Palpitations (ICD-9-CM :785.1 ) Name of Problem: Palpitations ; Onset Date: 04/2004 ; Confirmation: Provisional ; Classification: Medical ; Code: 785.1 ; Contributor System: OWA_HPP_SYS ; Last Updated: 01/18/2007 0:00 CDT ; Life Cycle Date: 04/24/2004 ; Life Cycle Status: Active ; Vocabulary: ICD-9-CM Diagnoses(Active) Headache Date: 06/04/2014 ; Diagnosis Type: Reason For Visit ; Confirmation: Complaint of ; ClinicalDx: Headache ; Classification: Medical ; Clinical Service: Non-Specified ; Code: PNED ; Probability:0 ; Diagnosis Code: [id number] Triage Chief Complaint Description : Pt presents to Er with RODRIGUEZ that started wednesday. Pain radiating from neck to head. Also states pain radiating down her left side of chest. Pain 05/18 Information Given By : Patient Accompanied By : Spouse Mode of Arrival ED : Private vehicle, Ambulatory Track : Medical Languages : [place]er Vital Signs Assessed : Yes Treatments Prior to Arrival : None Are you ? : No Is Patient Female and 13-50 no hysterectomy : Yes Status : Patient denmayra HUIZAR, ASPEN Kayla RN - 06/04/2014 6:20 CDT Vital Signs Temperature Core : 36.5 DegC(Converted to: 97.7 DegF) Peripheral Pulse Rate : 85 /min Respiratory Rate : 20 /min Systolic Blood Pressure : 120 mmHg Diastolic Blood Pressure : 78 mmHg NIBP Mean : 92 mmHg SpO2 : 100 % Oxygen Therapy : Room air Height : 170 cm(Converted to: 5 ft 7 inch(es)) Estimated Weight : 62 kg Estimated Weight Conversion to Pounds : 136.4 lb ASPEN HUIZAR RN - 06/04/2014 6:20 CDT Pain Assessment Pain Symptoms : Yes ASPEN HUIZAR RN - 06/04/2014 6:20 CDT Pain Pain Assessment Grid Pain 1 Location : Head Laterality : Bilateral Intensity : 10 ASPEN HUIZAR RN - 06/04/2014 6:20 CDT Comfort Measures Comfort Measures Grid Rest : Yes ASPEN HUIZAR RN - 06/04/2014 6:20 CDT ED Physician Notification Time ED Physician Notification Time : 06/04/2014 6:22 CDT ASPEN HUIZAR RN - 06/04/2014 6:20 CDT TRACY TRACY Level 1 : No TRACY Level 2 : No TRACY Level 3 : One ASPEN HUIZAR RN - 06/04/2014 6:20 CDT DCP GENERIC CODE Tracking Acuity : 3 -Urgent Tracking Group : [facility] ED ASPEN HUIZAR RN - 06/04/2014 6:20 CDT Allergy (As Of: 06/04/2014 06:23:01 CDT) Allergies (Active) NKA Estimated Onset Date: Unspecified ; Created By: KETAN KEANE LPN; Reaction Status: Active ; Category: Drug ; Substance: NKA ; Type: Allergy ; Updated By: KETAN KEANE LPN; Reviewed Date: 06/04/2014 6:22 CDT Source: [employer] Document Id: [id number] CDT!45 documented in this encounter Miscellaneous Notes Miscellaneous - Matt Morrison R.N. - 06/04/2014 8:48 AM CDT Valuables/Belongings Valuables/Belongings Entered On: 06/04/2014 8:48 CDT Performed On: 06/04/2014 8:48 CDT by MATT MORRISON RN Valuables/Belongings Home Medication Disposition : None brought in with patient MATT MORRISON RN - 06/04/2014 8:48 CDT Source: [employer] Document Id: [id number] CDT!3 Miscellaneous - Matt Morrison R.N. - 06/04/2014 6:12 AM CDT Facility Charge Ticket 2.0 11.0 DX Facility Charge Ticket 2.0 11.0 DX Entered On: 06/04/2014 8:48 CDT Performed On: 06/04/2014 6:12 CDT by MATT MORRISON RN Facility Charge Ticket 2.0 11.0 DX ED Other Charges : Standard ED Encounter TVL Level Translated RTF : Medical problem - major TVL:4 TVL Level for Facility Charge Ticket : Level 4 Arrival Mode Calc : 1 Mode of Arrival ED : Private vehicle, Ambulatory [facility] Mode of Arrival Interpreted : Standard [facility] Process Management : None Order Management RTF : Laboratory Thyroid Stimulating Hormone,06/04/14 06:43,ENIO TANNER MD Completed Comprehensive Metabolic Panel,06/04/14 06:43,ENIO TANNER MD Completed CBC (includes Auto Differential),06/04/14 06:43,ENIO TANNER MD Completed Automated Diff-5 Part,06/04/14 06:52,ENIO TANNER MD Completed Xray CXR 2 Views,06/04/14 06:43,ENIO TANNER MD Completed [facility] Order Management : Lab tests, Xray - plain films 30 Minutes Critical Care : No Nursing Notes RTF : Triage Forms ED Triage Assessment,06/04/14 06:20,ASPEN HUIZAR RN Nursing Notes ED Primary Assessment,06/04/14 06:23,ASPEN HUIZAR LABORER HOISTING Nurse Reassess,06/04/14 07:39,MATT MORRISON RN ED Pain Assessment,06/04/14 08:47,MATT MORRISON RN [facility] Nursing Assessment : Triage and 1-2 nursing assessments [facility] Disposition : Discharge [facility] Total Points with Diagnosis Control : 9 [facility] Visit Level : 36283 Level 4 Treatments Prior to Arrival : None MATT MORRISON RN - 06/04/2014 8:48 CDT Source: [employer] Document Id: [id number] CDT!18 documented in this encounter Plan of Treatment Not on filedocumented as of this encounter Procedures Procedure Name Priority Date/Time Associated Comments Diagnosis AUTOMATED Routine 06/04/2014 6:47 AM Results f or this DIFFERENTIAL, B CDT procedure ar e in the results section. CBC WITH DIFFERENTIAL, Routine 06/04/2014 6:47 AM Results for this B CDT procedure are i n the results section. THYROID-STIMULATING Routine 06/04/2014 6:47 AM Re sults for this HORMONE-SENSITIVE CDT procedure are in (S-TSH) the results section. COMPREHENSIVE Routine 06/04/2014 6:47 AM Results for this METABOLIC PANEL, S/P CDT procedu re are in the results section. documented in this encounter Results Automated Differential (06/04/2014 6:47 AM CDT) athologist Signature Absolute 4.55 1.70 - POWERCHART Neutrophils 7.00 109L Lymphocytes 1.44 0.90 - POWERCHART 2.90 X109L Monocytes 0.68 0.30 - POWERCHART 0.90 X109L Eosinophils 0.24 0.05 - POWERCHART 0.50 X109L Absolute 0.01 0.00 - POWERCHART Basophil 0.30 X109L Specimen Anatomical Collection Method Collection Time Receive d Time (Source) Location / / Volume Laterality Blood 06/04/2014 6:47 AM 4 6:47 CDT AM CDT Enio Tanner M.D. LAB BLOOD ADD-ON Performing Organization Address City/State/ZIP Code Phon e Number POWERCHART (ABNORMAL) CBC with Differential (06/04/2014 6:47 AM CDT) [facility] Method Time Signature Leukocytes 6.9 3.4 - 10.5 POWERCHART X109L Erythrocytes 4.26 3.90 - POWERCHART 5.03 T5039G Hemoglobin 12.4 12.0 - POWERCHART 15.5 GDL Hematocrit 38.4 34.9 - POWERCHART 44.5 MCV 90.1 82.0 - POWERCHART 98.0 FL HX RDW 11.8 (L) 11.9 - POWERCHART 15.5 Platelet Count 206 150 - 450 POWERCHART X109L HXDifferential? Auto POWERCHART Specimen (Source) Anatomical Collection Method Collection Time Re ceived Time Location / / Volume Laterality Blood 06/04/2014 6:47 AM CDT Enio Tanner M.D. LAB BLOOD ADD-ON Performing Organization Address City/State/ZIP Code Phon e Number POWERCHART (ABNORMAL) CMP (Comprehensive Metabolic Panel) (06/04/2014 6:47 AM CDT) [facility] Method Time Signature Anion Gap 13 10 - 20 POWERCHART MMOLL Alkaline 42 37 - 98 POWERCHART Phosphatase, S UL Alanine 10 (L) 15 - 37 POWERCHART Amniotransferase, LD UL Aspartate 14 12 - 31 POWERCHART Aminotransferase UL (AST), S Bilirubin, Total, S 0.5 0.1 - 1.0 POWERCHART MGDL BUN (Blood Urea 11 7 - 18 POWERCHART Nitrogen), S MGDL Chloride, S 105 98 - 107 POWERCHART MMOLL CO2 Total 28.9 23.0 - POWERCHART 29.0 MMOLL Creatinine 0.69 0.60 - POWERCHART 1.30 MGDL Total Protein, S 6.7 6.3 - 7.9 POWERCHART GDL Glucose 92 70 - 139 POWERCHART MGDL Calcium, Total, S 9.3 8.6 - POWERCHART 10.0 MGDL Sodium, S 141.8 135.0 - POWERCHART 145.0 MML Potassium, S 4.7 3.6 - 4.8 POWERCHART MMOLL Albumin, S 4.2 3.5 - 5.0 POWERCHART GDL eGFR Black/ >60 >=60 POWERCHART Filipino [id number] 2 HXeGFR (MDRD) >60 >=60 POWERCHART [id number] 2 Specimen (Source) Anatomical Collection Method Collection Time Re ceived Time Location / / Volume Laterality Blood 06/04/2014 6:47 AM CDT Enio Tanner M.D. LAB BLOOD ADD-ON Performing Organization Address City/State/ZIP Code Phon e Number POWERCHART (ABNORMAL) Thyroid-Stimulating Hormone-Sensitive (s-TSH) (06/04/2014 6:47 AM CDT) Analysis Performed At Patho logist Time Signature TSH 7.42 (H) 0.30 - 5.00 POWERCHART (Thyrotropin) MCIUML Specimen (Source) Anatomical Collection Method Collection Time Re ceived Time Location / / Volume Laterality Blood 06/04/2014 6:47 AM CDT Enio Tanner M.D. LAB BLOOD ADD-ON Performing Organization Address City/State/ZIP Code Phon e Number POWERCHART documented in this encounter Visit Diagnoses Not on filedocumented in this encounter
--- OUTSIDE RECORDS SUMMARY | 2022-05-04 10:32 | XMS_ITS | Encounter Summary ---
:1980 Author Organization [facility] Address [address] [place] [address] Care Team Providers Name Role Phone None, Pcp Primary Care Provider Unavailable Encounter Details Date Type Department Care Team Description 03/31/2021 Clinical Support [address] [address] Social History Tobacco Use Types Packs/Day Years [...] documented as of this encounter Progress Notes Kirsten Heart RN - 03/31/2021 1:00 PM CDT Patient in with cut on left pointer finger. She was cutting flores and scissors cut outside pad. Bleeding is minimal. Wound clean. Cleansed with hibiclens and dressed in sterile mepilex for two days. Will remove and use bandaids there after. She will return for signs or symptoms of infection which were discussed with patient. Discussed with Dr Elena who agreed with plan of care. Tetanus booster given. documented in this encounter Plan of Treatment Not on filedocumented as of this encounter Visit Diagnoses Not on filedocumented in this encounter Care Teams Assistant Therapy Aide Relationship Specialty Start Date End Date None, Pcp PCP - General Analytical Lab Technician 08/27/20 04/06/21 [address] [place] [address] documented as of this encounter
--- OUTSIDE RECORDS SUMMARY | 2022-05-04 10:32 | XMS_ITS | Encounter Summary ---
:1980 Author Organization [facility] Address [address] [place] [address] Care Team Providers Name Role Phone Navya Elena MD Primary Care Provider Unavailable Reason for Visit Reason Comments Palpitations x 1.5 months Encounter Details Date Type Department Care Team Description 07/08/2020 Office Visit Deepika Heller, Intermittent palpitations (P rimary Dx); [address] VICTIMS ADVOCATE CLERK/SPECIALIST, CHILD AND FAMILY COUNSELOR Acquired hypothyroidism; [place] [address] [address] Takes dietary supplements; [phone] [place], [place] Anxiety and de pression [phone] Social History Tobacco Use Types Packs/Day Years [...] Comments Blood Pressure 118/68 07/08/2020 8:39 AM DISHWASHING MACHINE REPAIRER Pulse 86 07/08/2020 8:39 AM DISHWASHING MACHINE REPAIRER Temperature 37.2 ??C (98.9 ??F) 07/08/2020 8:39 AM DISHWASHING MACHINE REPAIRER Respiratory Rate 12 07/08/2020 8:39 AM DISHWASHING MACHINE REPAIRER Oxygen Saturation 99% 07/08/2020 8:39 AM DISHWASHING MACHINE REPAIRER Inhaled Oxygen Concentration - - Weight 63.6 kg (140 lb 3.4 oz) 07/08/2020 8:39 AM DISHWASHING MACHINE REPAIRER Height 172.3 cm (5' 7.84) 07/08/2020 8:39 AM DISHWASHING MACHINE REPAIRER Body Mass Index 21.42 07/08/2020 8:39 AM DISHWASHING MACHINE REPAIRER documented in this encounter Patient Instructions Patient InstructionsDeepika Rodriguez APRN, CNP - 07/08/2020 8:40 AM CST Get my chart. [facility]. becareful on too much magnesium supplement. WASHING MACHINE REPAIRER documented in this encounter Progress Notes Deepika Rodriguez APRN, CNP - 07/08/2020 8:40 AM CST Estab Patient Visit Subjective Patient ID: Hattie Brenner is a 40 y.o. female. Chief Complaint Patient presents with ??? Palpitations x 1.5 months HPI Patient presents to the [place] clinic for complaint of palpitation-like symptoms for the past 1.5months. The discomfort is at the chest and is described as sharp, she is able to feel the heartbeat,mostly worsened at night. Also complained of bilateral cold hands and fingers with some numbness in the fingers. She has new shortness of breath with climbing stairs. She is usually not hungry as much,also has poor sleep, and fatigue due to unable to sleep well. She denies any smoking alcohol or druguse. Patient has a history of acquired hypothyroidism was on Basin Thyroid however transition to thyroid care supplement and is also taking multiple other supplements, vitamin D, fish oil and probiotics. The following portions of the patient's chart were reviewed in this encounter and updated as appropriate: Allergies Meds Current Outpatient Medications: ??? BL CYMRDNT-RCTKCXLYR-MGBQ PO, Take by mouth, Disp: , Rfl: ??? Cholecalciferol (VITAMIN D3 PO), Take 1 capsule by mouth per week [id number] , Disp: , Rfl: ??? Mcnary-3 Fatty Acids (FISH OIL OMEGA-3 PO), 1 capsule daily, Disp: , Rfl: ??? Probiotic Product (PROBIOTIC DAILY PO), 1 capsule 1 (one) time each day if needed, Disp: , Rfl: ??? THYROID PO, Take 1 capsule by mouth Thyroid care With iodine+L tyrosine., Disp: , Rfl: ??? UNABLE TO FIND, Med Name: [facility] [place] [facility]; ELEUTERIO, lemon balm and magnesium, Disp: , Rfl: ??? thyroid (Basin Thyroid) 30 MG tablet, Take 1 tablet (30 mg total) by mouth 1 (one) time each day Take 1/2 tab for 8 days then 1 tab., Disp: 30 tablet, Rfl: 2 Allergies Allergen Reactions ??? Paroxetine Other (see comments) Made depression worse, Suicidal ??? Seasonal Other (see comments) Sneezing, itchy eyes Review of Systems Constitutional: Positive for appetite change (decreased). Negative for chills, diaphoresis and fever. Gastrointestinal: Negative for blood in stool and constipation. Mild upset stomach; Genitourinary: Negative for hematuria. Neurological: Positive for dizziness, numbness (both hands/fingers) and headaches. Objective Blood pressure 118/68, pulse 86, temperature 37.2 ??C (98.9 ??F), temperature source Temporal, resp.rate 12, height 1.723 m (5' 7.84), weight 63.6 kg (140 lb 3.4 oz), SpO2 99 %. Physical Exam Constitutional: General: She is not in acute distress. Appearance: She is not ill-appearing or toxic-appearing. Eyes: Extraocular Movements: Extraocular movements intact. Conjunctiva/sclera: Conjunctivae normal. Cardiovascular: Rate and Rhythm: Normal rate and regular rhythm. Heart sounds: No murmur. Pulmonary: Effort: Pulmonary effort is normal. Breath sounds: Normal breath sounds. No wheezing. Musculoskeletal: Comments: Normal UE resistance/strength. Neurological: General: No focal deficit present. Mental Status: She is alert. Motor: No weakness. Deep Tendon Reflexes: Reflex Scores: Patellar reflexes are 2+ on the right side and 2+ on the left side. Psychiatric: Mood and Affect: Mood normal. phq9-0, gad7- Assessment/Plan Problem List Items Addressed This Visit Endocrine/Metabolic Acquired hypothyroidism Overview 05/25/18: Was taking armour thyroid. Stopped taking it about 1.5 years ago. She has been trying to wean of prescription medications due to increasing anxiety and depression. Changed diet to exclude gluten, dairy, and eggs. Taking thyroid care and thyroid maintenance supplements as recommended by homeopathic doctor. Overall feeling much better in the last couple of months since she started the diet. Current Assessment & Plan Discussed importance of normal t4 hormone in body to help all organs function well. Symptoms she ishaving and previous lab values consistent with low thyroid hormone. Patient was agreeable to using porcine derived thyroid hormone. Looks like she was on armour thyroid in the past, will resume this and recheck labs in about 7 weeks. Relevant Medications thyroid (Basin Thyroid) 30 MG tablet Other Relevant Orders Thyroid Function C[place]ño Thyroperoxidase (TPO) Ab Other Takes dietary supplements Current Assessment & Plan Patient is taking vit D 10,000 iu daily without hx of vit d deficiency. Discussed she can use weekly for supplementation. Also take magnesium supplement, discuss can induce diarrhea and to be careful on over supplementing. Anxiety and depression Current Assessment & Plan History of anxiety/depression, not currently requiring treatment. phq9-0, gad7-5. Other Visit Diagnoses Intermittent palpitations - Primary Relevant Orders Thyroid Function Cataño Sent Auto Load Logic message to hold the thyroid care supplement while using armour thyroid. Patient declined influenza vaccine offered. Patient Instructions Get my chart. Will send armour thyroid to kev silver. becareful on too much magnesium supplement. WASHING MACHINE REPAIRER documented in this encounter Miscellaneous Notes Assessment & Plan Note - Deepika Rodriguez APRN, CNP - 07/08/2020 10:00 AM DISHWASHING MACHINE REPAIRER Associated Problem(s): Anxiety and depression History of anxiety/depression, not currently requiring treatment. phq9-0, gad7-5. WASHING MACHINE REPAIRER Assessment & Plan Note - Deepika Rodriguez APRN, CNP - 07/08/2020 9:57 AM DISHWASHING MACHINE REPAIRER Associated Problem(s): Acquired hypothyroidism Discussed importance of normal t4 hormone in body to help all organs function well. Symptoms she is having and previous lab values consistent with low thyroid hormone. Patient was agreeable to using porcine derived thyroid hormone. Looks like she was on armour thyroid in the past, will resume this aliceck labs in about 7 weeks. WASHING MACHINE REPAIRER Assessment & Plan Note - Deepika Rodriguez APRN, CNP - 07/08/2020 9:53 AM DISHWASHING MACHINE REPAIRER Associated Problem(s): Takes dietary supplements Patient is taking vit D 10,000 iu daily without hx of vit d deficiency. Discussed she can use weeklyfor supplementation. Also take magnesium supplement, discuss can induce diarrhea and to be careful on over supplementing. WASHING MACHINE REPAIRER documented in this encounter Plan of Treatment Not on filedocumented as of this encounter Results (ABNORMAL) Thyroperoxidase (TPO) Ab (07/08/2020 9:26 AM DISHWASHING MACHINE REPAIRER) Patholo gist Method Time Signature Thyroid 291.2 (H) <9.0 07/09/2020 [facility] Peroxidase IU/mL 9:28 AM [facility] (TPO) Ab Comment: Test Performed by: [facility] [address] [place] [address] Risk Control Manager: Tomy Hernández M.D. Ph. D.; CLIA# [id number] Specimen Anatomical Collection Method Collection Time Receive d Time (Source) Location / / Volume Laterality Blood (Blood, 07/08/2020 9:26 AM 07/08/20 20 2:01 Venous) DISHWASHING MACHINE REPAIRER PM DISHWASHING MACHINE REPAIRER Deepika Rodriguez APRN, CNP LAB BLOOD ORDERABLES Performing Organization Address City/State/ZIP Code Phon e Number [facility] see result attachment for specific address (ABNORMAL) Thyroid Function [place] (07/08/2020 9:26 AM DISHWASHING MACHINE REPAIRER) Analysis Performed At Patho logist Time Signature TSH, Sensitive 9.91 (H) 0.46 - 07/08/2020 SUSAN 4.68 mIU/L 2:04 PM [facility] Comment: The results from [...] (Blood, 07/08/2020 9:26 AM 07/08/20 20 Venous) DISHWASHING MACHINE REPAIRER 12:58 PM DISHWASHING MACHINE REPAIRER Deepika Rodriguez APRN, CHILD AND FAMILY COUNSELOR LAB BLOOD ORDERABLES Performing Organization Address City/State/ZIP Code Phon e Number [facility] [address] [place] [address] documented in this encounter Visit Diagnoses Diagnosis Intermittent palpitations - Primary Acquired hypothyroidism Unspecified hypothyroidism Takes dietary supplements Anxiety and depression documented in this encounter Care Teams Blacking Wheel Tender Relationship Specialty Start Date End Date Navya Elena MD PCP - General Family Medicine 07/13/19 documented as of this encounter
--- OUTSIDE RECORDS SUMMARY | 2022-05-04 10:32 | XMS_ITS | Encounter Summary ---
:1980 Author Organization [facility] Address [address] [place] [address] Care Team Providers Name Role Phone Unavailable Primary Care Provider Unavailable Encounter Details Date Type Department Care Team Description 07/13/2014 Hospital Encounter HX [facility] Dewey Lawrence, MIKE RN, C.N.P., D.N.P. [address] [place], [place] [phone] (Wo rk) Social History [...] - - Height 170 cm (5' 6.93) 07/13/2014 9:05 AM PSYCHOLOGIST MILITARY PERSONNEL Body Mass Index - - documented in this encounter Medications at Time of Discharge Medication Sig Dispensed Refills Start Date End Date tetrahydrozoline (Visine) 0.05 1 drop as needed. 0 08/26/2008 % ophthalmic solution documented as of this encounter Miscellaneous Notes Miscellaneous - Dewey Lawrence, ALEXEY, C.N.P. - 07/18/2014 7:31 PM CST Normal Results Letter 18 July 2014 HATTIE BRENNER [address] [facility] [address] Dear HATTIE OFE, I am pleased to report that your results from the following diagnostic test(s) are normal with exception to your thyroid (TSH) test. I would like you to increase your [place] 15mg to TWO tabs (30mg) daily. We will recheck your TSH in 3 months. Please follow up with us as we discussed during your visit or sooner if you have any concerns. If you have questions or concerns, please do not hesitate to callour office. Result Name Current Result Previous Result Normal Range Glucose Lvl (mg/dL) 77 07/13/2014 92 06/04/2014 70 - 139 Cholesterol (mg/dL) 86 07/13/2014 0 - 200 Trig (mg/dL) 51 07/13/2014 9 - 150 HDL (mg/dL) (L) 34 07/13/2014 35 - 60 LDL Calculated (mg/dL) (L) 42 07/13/2014 100 - 129 Chol/HDL Ratio 3 07/13/2014 TSH (mIU/L) (H) 4.77 07/13/2014 (H) 7.42 06/04/2014 0.27 - 4.20 Sincerely, DEWEY LAWRENCE [id number] [id number] Electronic Signature Electronically Signed By: DEWEY LAWRENCE RN, WAREHOUSE DELIVERY DRIVER On: 18 July 2014 This document has images extracted. Source: [facility] Peerio Document Id: [id number] documented in this encounter Plan of Treatment Not on filedocumented as of this encounter Procedures Procedure Name Priority Date/Time Associated Diagnosis Comme nts LIPID PANEL, S Routine 07/13/2014 9:10 AM Results for this PSYCHOLOGIST MILITARY PERSONNEL procedure are i n the results section. GLUCOSE, P Routine 07/13/2014 9:10 AM Results f or this PSYCHOLOGIST MILITARY PERSONNEL procedure are i n the results section. THYROID-STIMULATING Routine 07/13/2014 9:10 AM Re sults for this HORMONE-SENSITIVE PSYCHOLOGIST MILITARY PERSONNEL procedure are in (S-TSH) the results section. documented in this encounter Results Glucose (07/13/2014 9:10 AM PSYCHOLOGIST MILITARY PERSONNEL) P athologist Signature Glucose 77 70 - 139 POWERCHART MGDL Specimen (Source) Anatomical Collection Method Collection Time Re ceived Time Location / / Volume Laterality Blood 07/13/2014 9:10 AM PSYCHOLOGIST MILITARY PERSONNEL Dewey Lawrence APRN C.N.P., D.N.P. LAB BLOOD ADD-ON Performing Organization Address City/State/ZIP Code Phon e Number POWERCHART (ABNORMAL) Lipid Panel (07/13/2014 9:10 AM PSYCHOLOGIST MILITARY PERSONNEL) P athologist Signature Cholesterol, 86 0 - 200 POWERCHART Total MGDL Comment: <200 mg/dL Desirable 200-239 mg/dL Borderline High >239 mg/dL High HX HDL 34 (L) 35 - 60 MGDL POWERCHART Comment: > 60 mg/dL Desirable 40 ? 60 mg/dL Low Risk <40 mg/dL Undesirable Triglycerides 51 9 - 150 MGDL POWERCHART Comment: <150 mg/dL Desirable 150-199 mg/dL Borderline High 200-499 mg/dL High > 499 Very High Calculated LDL 42 (L) 100 - 129 MGDL POWERCHART Total Cholesterol/HDL Ratio 3 PO WERCHART Specimen (Source) Anatomical Collection Method Collection Time Re ceived Time Location / / Volume Laterality Blood 07/13/2014 9:10 AM PSYCHOLOGIST MILITARY PERSONNEL Oskar Ren APRN.N.P., D.N.P. LAB BLOOD ADD-ON Performing Organization Address City/[facility]/ZIP Code Phon e Number POWERCHART (ABNORMAL) Thyroid-Stimulating Hormone-Sensitive (s-TSH) (07/13/2014 9:10 AM PSYCHOLOGIST MILITARY PERSONNEL) athologist Signature TSH 4.77 (H) 0.27 - POWERCHART (Thyrotropin) 4.20 MIUL Specimen (Source) Anatomical Collection Method Collection Time Re ceived Time Location / / Volume Laterality Blood 07/13/2014 9:10 AM PSYCHOLOGIST MILITARY PERSONNEL Dewey Lawrence APRN C.N.P., D.N.P. LAB BLOOD ADD-ON Performing Organization Address City/State/ZIP Code Phon e Number POWERCHART documented in this encounter Visit Diagnoses Not on filedocumented in this encounter
--- OUTSIDE RECORDS SUMMARY | 2022-05-04 10:32 | XMS_ITS | Encounter Summary ---
:1980 Author Organization [facility] Address [address] [place] [address] Care Team Providers Name Role Phone Unavailable Primary Care Provider Unavailable Encounter Details Date Type Department Care Team Description 04/26/2013 Hospital Encounter [facility]X [facility] Dewey Li, AP RN, C.N.P., D.N.P. [address] [place], [place] [phone] (Wo rk) Social History [...] encounter Miscellaneous Notes Miscellaneous - Dewey Li, BENDER MACHINE OPERATOR, C.N.P. - 04/26/2013 7:50 PM CDT Normal Results Letter 26 April 2013 HATTIE THAKUR [address] [facility] [id number] Dear HATTIE THAKUR, Your results from the following diagnostic test(s) are high indicating a need for a higher dose of synthroid. I changed your medication and will ask you to recheck this TSH level again in 2-3 months. Please follow up with us if you have any concerns. If you have questions or concerns, please do not hesitate to call our office. Result Name Current Result Previous Result Normal Range TSH (mcIU/mL) (H) 5.19 04/26/2013 (H) 9.10 01/16/2013 0.30 - 5.00 Sincerely, DEWEY LI [address] [place] [address] Electronic Signature Electronically Signed By: DEWEY LI RN, PERSONAL INJURY LEGAL ASSISTANT On: 26 April 2013 This document has images extracted. Source: [facility] POWERCHART Document Id: [id number] Electronically signed by Conversion, [facility] Animal Impersonator [id number] at 01/06/2017 7:53 PM CDT documented in this encounter Plan of Treatment Not on filedocumented as of this encounter Procedures Procedure Name Priority Date/Time Associated Diagnosis Comme nts THYROID-STIMULATING Routine 04/26/2013 1:52 PM Re sults for this HORMONE-SENSITIVE CDT procedure are in (S-TSH) the results section. documented in this encounter Results (ABNORMAL) Thyroid-Stimulating Hormone-Sensitive (s-TSH) (04/26/2013 1:52 PM CDT) Analysis Performed At Patho logist Time Signature TSH 5.19 (H) 0.30 - 5.00 POWERCHART (Thyrotropin) MCIUML Specimen (Source) Anatomical Collection Method Collection Time Re ceived Time Location / / Volume Laterality Blood 04/26/2013 1:52 PM CDT Dewey Li APRN, C.N.P., D.N.P. LAB BLOOD ADD-ON Performing Organization Address City/State/ZIP Code Phon e Number POWERCHART documented in this encounter Visit Diagnoses Not on filedocumented in this encounter
--- OUTSIDE RECORDS SUMMARY | 2022-05-04 10:32 | XMS_ITS | Encounter Summary ---
:1980 Author Organization [facility] Address [address] [place] [address] Care Team Providers Name Role Phone Navya Elena MD Primary Care Provider Unavailable Reason for Visit Consultation (Routine) - Closed Specialty Diagnoses / Referred By Contact Referred To Contact Procedures Occupational Therapy / Diagnoses Closed displaced fracture of shaft of fourth metacarpal bone of right hand, initial encounter Chantel Headley Rehabilitation MD [address] [place] [address] Referral ID Status Reason Start Date Expiration Date Visits V isits Requested Authorized [id number] Closed Specialty 09/05/2019 09/05/2020 99 99 Services Required Encounter Details Date Type Department Care Team Description 09/25/2019 Treatment [facility] Re[facility] Pearl Tyson Fing er stiffness, right Services Ortho OTR (Primary Dx) [address] [place] [address] Social History Tobacco Use Types Packs/Day [...] documented as of this encounter Progress Notes MERON Greer - 09/25/2019 8:00 AM CST Occupational Therapy REFERRING CLINICIAN: Chantel Headley MD REFERRING DIAGNOSIS: Right fourth metacarpal fracture TREATING DIAGNOSIS: Right finger stiffness INSURANCE TYPE: [place] NUMBER OF VISITS APPROVED: 99 ONSET DATE: 08/11/19 VISIT NUMBER: 3 ORDERS: Occupational therapy to evaluate and treat Right fourth metacarpal fracture. ??Finger swelling. OT for splint, edema management, motion. ?? Strengthening 6 weeks from injury. SUBJECTIVE: Pain: 1/10 at rest; 4/10 at worst when she bumps it. Per Dr. Headley note from today 09/20/2019: Able to transition to hand-based splint now- splint needs to allow for full MCP joint extension. May need additional splint that she can go in the water in [place] for protection as needed. Patient has OT today at [facility] where this will be addressed. Can use splint at work as needed, otherwise should have it off as much as possible for finger motion. Patient presents with forearm-based ulnar gutter orthosis, states noticed I cannot bring my fingers all the way up because it hits against the splint material, so the doctor was wondering if that could be adjusted. Patient states she will be going to [place] on 10/04/2019. Patient is a 39 year old female who was sledding with her children and ran into a snowman she used her right hand to protect herself. Per Dr. 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 Her spouse works . Their home water pipe just broke and she had water in her home. In process of changing jobs for life stressor. Leisure: going to [place] ADLS: patient feels she is 30 % from 100 % OBJECTIVE: Patient is 6 weeks post 4th metacarpal fracture Orthosis: Fits well; per patient she uses it as needed. Skin Assessment: very mild bruising/edema palmar surface over 4th metacarpal distal shaft noted- no tenderness on palpation HAND DOMINANCE: right hand dominant RANGE OF MOTION: Patient able to make a full composite fist with the right hand, able to oppose thumb to all digits, mild right ring finger PIP joint extension lag appreciated ROM In degrees Right 09/20/19 Right 09/25/19 Left 09/20/19 Thumb Opposition wnl wnl wnl Ring Finger MCP Extension/Flexion - +/86 0/90 PIP Extension/Flexion - With MP in extension - With MP in flexion - 0/95 DIP Extension/Flexion 0/85 0/89 0/100 EDEMA: Continue to appreciate dorsal hand edema especially over metacarpal ray Circumferential Measurements (in cms) Right 09/13 Right 09/20 Left 09/13 Wrist 15.9 15.6 15.0 Palm 19.2 19.1 17.9 Thumb P2 6.7 6.2 5.6 Index Finger PIP 7.8 6.6 5.8 Middle Finger PIP 6.8 6.1 5.8 Ring Finger P1 PIP 6.5 6.2 5.5 Small Finger PIP 5.5 5.2 4.5 SENSATION: reports the entire hand feels numb in the middle of the night Right 09/25 Left 09/25 Basket Weaver 16 No pain 49 TREATMENT PROVIDED: Orthotic management: 10 minutes no adjustments needed to custom fabricated orthosis; provided patient with extra velcro straps whenthe patient goes for vacation and if she wishes to use the orthosis in water. Patient will be over 7weeks post injury when she is on vacation. Use and precautions discussed. Details: fitted patient with an OTS ottobock Manu arexa wrist orthosis for right hand to wear over the hand based orthosis at night time only. Orthosis care and wearing schedule explained. Patient/family demonstrates good understanding. - Patient provided with stockinette for moisture absorption. THERAPY EXERCISE: 15 minutes -initiated reverse blocking: for PIP extension -Initiated gentle plasma processing technician and pinch strengthening: using yellow theraputty: precautions explained; advised patient to be aware of pain when using; if painful hold for 1-2 days and try again. Reviewed, patient will continue -CONTRAST baths 1-2 times per day -MLD (manual lymphatic massage ) Supplies provided: ottobock manu arexa orthosis-right medium; stockinette, velcro straps ASSESSMENT: Patient tolerated strengthening with no pain. Patient may possibly be positioning the wrist in a flexed position at nightime with the hand based orthosis on causing pressure over volar wrist and resulting in paraesthesias. SHORT TERM GOALS: 1. Patient with be Independent with home program within 2 visits. - met 2. Will have reduction of edema to .5 compared to left hand and resolution of paresthesia thus demonstrating improved healing and Independent performance of light ADL within 2 weeks. - met SKI PATROL OFFICER GOALS: 1. Patient will demonstrate plasma processing technician strength to 30 pounds and be able to resume resisted use of right hand for IADL and work duties within 8 weeks. PLAN: -Plan for next session: Re-check orthosis fit, edema and AROM/PROM, initiate gentle strengthening FREQUENCY & DURATION: Patient will be seen 2 times per week, patient prefers to try one time per week for up to 12 weeks. Today's Treatment Summary: Total Treatment Time: 25 minutes MERON Greer ACULTURE DESIGNER documented in this encounter Plan of Treatment Not on filedocumented as of this encounter Visit Diagnoses Diagnosis Finger stiffness, right - Primary documented in this encounter Care Teams Braddisher Relationship Specialty Start Date End Date Navya Elena MD PCP - General Family Medicine 07/13/19 documented as of this encounter
--- OUTSIDE RECORDS SUMMARY | 2022-05-04 10:32 | XMS_ITS | Encounter Summary ---
:1980 Author Organization [facility] Address [address] [place] [address] Care Team Providers Name Role Phone Unavailable Primary Care Provider Unavailable Encounter Details Date Type Department Care Team Description 04/26/2013 Hospital Encounter HX [facility] Dewey Lawrence, ALEXEY, C.N.P., D. N.P. [address] [place] [phone] (Wo rk) Social History Tobacco Use [...] Sign Reading Time Taken Comments Blood Pressure 102/60 04/26/2013 1:55 PM CDT Pulse 72 04/26/2013 1:55 PM CDT Temperature - - Respiratory Rate 16 04/26/2013 1:55 PM CDT Oxygen Saturation - - Inhaled Oxygen Concentration - - Weight 60.6 kg (133 lb 9.6 oz) 04/26/2013 1:55 PM CDT Height - - Body Mass Index 20.6 01/16/2013 10:02 AM CDT documented in this encounter Medications at Time of Discharge Medication Sig Dispensed Refills Start Date End Date tetrahydrozoline (Visine) 0.05 1 drop as needed. 0 08/26/2008 % ophthalmic solution documented as of this encounter Progress Notes Dewey Lawrence APRN, C.N.P. - 04/26/2013 1:52 PM CDT [id number] CHIEF COMPLAINT/REASON FOR VISIT 1. Hypothyroidism. 2. Acne. HISTORY OF PRESENT ILLNESS 1. Hypothyroidism. Hattie is a very pleasant 32-year-old female who comes in today with a known diagnosis of hypothyroidism. She was just recently started on medication. She feels that it does not seem to be working as she continues to feel quite low energy. She denies any symptoms of depression. She states that she just feels like she does not have her get up and go. There has not been any change in her weight. She has noted some changes with her skin noting some specifically acne, but no hair changes, no changes in bowel or bladder habits. 2. Acne. The patient has had a longstanding problem with acne. She had it as a teenager. It does seem to rotate with her menstrual cycles. She does not have any interest in control pills and alsoshe has migraine headaches. She has not used any medications specifically for it. She does wash her face twice daily with Neutrogena soap. CURRENT MEDICATIONS New reconciled medication is Differin cream as well as Cleocin T. She continues on the [id number] mcg. ALLERGIES No known drug allergies. SYSTEMS REVIEW No constipation or diarrhea. No changes in her hair. Her skin is with some acne mostly noted on her face, not on her upper extremities or her back area. She denies any so significant weight changes. VITAL SIGNS Please see the EMR for details. Her weight is 60.6 kg. PHYSICAL EXAMINATION GENERAL: Patient appears nondistressed. SKIN: She does have some comedones. However, no cystic acne noted on her face, mostly noted on her chin area, and a bit on the nasal folds area. No other physical examination performed. IMPRESSION/REPORT/PLAN 1. Hypothyroidism. Waiting for her TSH, results. I will call her with those results and will adjust accordingly. Patient is agreeable to that. Again, we did discuss this in detail. 2. Acne. We will use Differin cream at bedtime and Cleocin T continuing with her washing of her face. She will report if no improvement or any worsening symptoms. I did talk to her about correct administration as well as the potential side effects of the medication, but did let her know that Differin c ream definitely could dry out her skin and cause her some irritation and to watch for that. Patient Education Ready to learn No apparent learning barriers were identified Learning preferences include listening Explained diagnosis and treatment plan Patient/Child/Caregiver expressed understanding of the content Karlos Blanco/lisa Electronically Signed By: DEWEY LAWRENCE RN, AIR DEFENSE ARTILLERY OFFICER On: 04/28/2013 03:41 PM Source: [facility] [id number] Document Id: [id number] documented in this encounter Miscellaneous Notes Miscellaneous - Dewey Lawrence APRN C.N.P. - 04/26/2013 2:56 PM CDT General Message Document Contains Addenda Addendum by MOJGAN CHACON LPN on 26 April 2013 15:33:40 CDT Patient called and updated Addendum by MOJGAN CHACON LPN on 26 April 2013 15:30:42 CDT Message left for patient to call back From: DEWEY LAWRENCE RN, JUANY To: MOJGAN CHACON LPN; Sent: 04/26/2013 14:56:47 CDT ! Subject: General Message please call Hattie and let her know her TSH is 5.19- Still too high. Will increase med and recheck again in 2 months. Source: [facility] POWERCHART Document Id: [id number] Electronically signed by Paul [facility] Trial Consultant [id number] at 01/06/2017 7:53 PM CDT Miscellaneous - Dewey Lawrence APRN, C.N.P. - 04/26/2013 2:25 PM CDT Ambulatory Patient Summary [id number] [place] [address] Visit Information Name: HATTIE BRENNER [facility] Number: [id number] Current Date: 04/26/2013 14:25:21 Physicians Attending Provider: DEWEY LAWRENCE RN, AIR DEFENSE ARTILLERY OFFICER Primary Care Provider: DEWEY LAWRENCE RN, JUANY Your Medications Here is a list of your medications. It is important to take your medications as directed. Use a pillbox or chart to help remind you to take your medications. Please let your doctor or nurse know if you have problems taking your medications. Medication/Strength Dose Route Frequency Indications/Special Instructions/Comments/Notes clindamycin topical (Cleocin T 1% topical solution) 1 jannie Topical two times a day adapalene topical (Differin 0.1% topical cream) 1 ajnnie Topical once a day (at bedtime) levothyroxine (Levothroid 75 mcg (0.075 mg) oral tablet) 75 mcg Oral once a day Attention: If you have any medications at [...] No Appointments found Your Goals/Additional instructions: Source: [facility] POWERCHART Document Id: [id number] Miscellaneous - Dewey Lawrence APRN, C.N.P. - 04/26/2013 2:25 PM CDT Ambulatory Depart Summary [address] [address] Visit Information Name: OFE HATTIE BARROW [facility] Number: [id number] Visit Date: 04/26/2013 14:25:20 Attending Provider: DEWEY LAWRENCE RN, CNP Primary Care Provider: DEWEY LAWRENCE RN, JUANY OFEHATTIE PUSHPA has been given the following list of medications: Your Medications It is important to take your medications as directed. Use a pill box or chart to help remind you to take your medications. Please let your doctor or nurse know if you have problems taking your medications. Medication/Strength Dose Route Frequency Indications/Special Instructions/Comments/Notes clindamycin topical (Cleocin T 1% topical solution) 1 jannie Topical two times a day adapalene topical (Differin 0.1% topical cream) 1 jannie Topical once a day (at bedtime) levothyroxine (Levothroid 75 mcg (0.075 mg) oral tablet) 75 mcg Oral once a day Attention: If you have any medications at home that are not on this list, DO NOT take them until youcontact your provider for clarification. Additional Information: Source: [facility] POWERCHART Document Id: [id number] Miscellaneous - Mojgan Chacon L.P.N. - 04/26/2013 1:55 PM CDT Adult Ferryboat Operator Intake/History Adult Ferryboat Operator Intake/History Entered On: 04/26/2013 14:02 CDT Performed On: 04/26/2013 13:55 CDT by MOJGAN CHACON LPN Intake Chief Complaint : Continues to feel malaise, Acne Temperature Core : 37 DegC(Converted to: 98.6 DegF) Peripheral Pulse Rate : 72 /min Respiratory Rate : 16 /min Heart Rhythm : Regular Systolic Blood Pressure : 102 mmHg Diastolic Blood Pressure : 60 mmHg NIBP Mean : 74 mmHg BP Location : Left upper extremity Blood Pressure Cuff Size : Regular Actual Weight : 60.6 kg(Converted to: 133 lb 10 oz) Weight Source : Standing scale Dosing Weight Clinic : 60.6 kg MOJGAN CHACON LPN - 04/26/2013 13:55 CDT General Info Information Given By : Patient Preferred Communication Mode : Verbal Languages : Egyptian MOJGAN CHACON LPN - 04/26/2013 13:55 CDT Subjective Pain Symptoms : No MOJGAN CHACON LPN - 04/26/2013 13:55 CDT Dependent Habits Tobacco Use/Currently Using : No Smoking Status : Never smoker MOJGAN CHACON LPN - 04/26/2013 13:55 CDT Tobacco Use Grid Last Use : never MOJGAN CHACON LPN - 04/26/2013 13:55 CDT Alcohol Use : No MOJGAN CHACON ECONOMIC RESEARCH ASSISTANT - 04/26/2013 13:55 CDT Caffeine Use Grid Caffeine Use : None MOJGAN CHACON LPN - 04/26/2013 13:55 CDT Recreational Drug Use Grid Drug Use : None MOJGAN CHACON LPN - 04/26/2013 13:55 CDT Source: [facility] Document Id: [id number] CDT!34 documented in this encounter Plan of Treatment Not on filedocumented as of this encounter Visit Diagnoses Not on filedocumented in this encounter
--- OUTSIDE RECORDS SUMMARY | 2022-05-04 10:32 | XMS_ITS | Encounter Summary ---
:1980 Author Organization [facility] Address [address] [place] [address] Care Team Providers Name Role Phone Navya Elena MD Primary Care Provider Unavailable Encounter Details Date Type Department Care Team Description 10/16/2019 Orders Only [facility] Yolanda Headley d Orthopedics MD Chantel fracture of shaft of [address] [place] [address] SE of right hand with [phone] [place], [place], [phone] subsequent encounter [phone] (Primary Dx) (Work) Social History Tobacco Use Types Packs/Day Years [...] documented as of this encounter Progress Notes Angelia Vidales CST - 10/16/2019 10:59 AM CDT Right hand documented in this encounter Plan of Treatment Not on filedocumented as of this encounter Visit Diagnoses Diagnosis Closed displaced fracture of shaft of fo urth metacarpal bone of right hand with routine healing, subsequent encounter - Primary documented in this encounter Care Teams Radio/Tv Technician Relationship Specialty Start Date End Date Navya Elena MD PCP - General Family Medicine 07/13/19 documented as of this encounter
--- OUTSIDE RECORDS SUMMARY | 2022-05-04 10:32 | XMS_ITS | Encounter Summary ---
:1980 Author Organization [facility] Address [address] [place] [address] Care Team Providers Name Role Phone Unavailable Primary Care Provider Unavailable Encounter Details Date Type Department Care Team Description 07/16/2004 Hospital Encounter HX NO MAPPING Social History Tobacco Use Types Packs/Day Years [...]
--- OUTSIDE RECORDS SUMMARY | 2022-05-04 10:32 | XMS_ITS | Encounter Summary ---
:1980 Author Organization [facility] Address [address] [place] [address] Care Team Providers Name Role Phone None, Pcp Primary Care Provider Unavailable Encounter Details Date Type Department Care Team Description 11/27/2020 Orders Only [facility] Baldemar Curry MD [address] [facility] [address] [place] [address] [place] [address] [phone] (Wo rk) Social History Tobacco Use Types [...] on filedocumented in this encounter Care Teams Clip Riveter Relationship Specialty Start Date End Date None, Pcp PCP - General Gold Stamper 08/27/20 04/06/21 [address] [place] [phone] documented as of this encounter
--- OUTSIDE RECORDS SUMMARY | 2022-05-04 10:33 | XMS_ITS | Encounter Summary ---
:1980 Author Organization [facility] Address [address] [place] [address] Care Team Providers Name Role Phone Unavailable Primary Care Provider Unavailable Encounter Details Date Type Department Care Team Description 10/11/2015 Hospital Encounter [facility] Hospital Joaquín, Other spe cified Outpatient Services MD Scot diseases of [address] [place] [address] [place] [phone] [place] [address] Social History Tobacco Use Types Packs/Day Years Used Date Never Assessed Alcohol Habits Answer Date Recorded [...] Name Priority Date/Time Associated Diagnosis Comme nts PATHOLOGY Routine 10/11/2015 8:35 AM Results f or this ACOUSTICAL LOGGING ENGINEER procedure are i n the results section. , URINE Routine 10/11/2015 6:15 AM Resul ts for this ACOUSTICAL LOGGING ENGINEER procedure are i n the results section. documented in this encounter Results Pathology (10/11/2015 8:35 AM ACOUSTICAL LOGGING ENGINEER) P athologist Signature Pathology SEE BELOW [facility] Comment: ? [facility] ? [address] ?[place] [address] ? Patient: ?HATTIE BRENNER ? Procedure: ? 10/11/2015 08:35 /Age/Sex: ??1980, 35 Y, F ?Received: ?10/11/2015 10:18 ? Accession #: ?? [id number] Billing: ?[id number] ? Patient Location: OUT-PATIENT ? SERVICES Ordered by: ?? SCOT YANES MD. ?Attending: ? SCOT YANES MD. ?S URGICAL PATHOLOGY FINAL REPORT SPECIMEN: (A) GALLBLADDER CLINICAL INFORMATION: Non-functioning gallbladder. GROSS DESCRIPTION: Formalin fixed specimen labeled jared adder consists of a gallbladder measuring 6.7 x 3.3 x 1.7 cm. ??There is a maximum wall thickness of 0.2 cm. ??No stones or masses identified. ??There is a diffuse cholesterolosis within the mucosa. Living Specialist sections are submitted in cassette A1, 1 SS. DIAGNOSIS: GALLBLADDER: - GALLBLADDER WITH NO PATHOLOGIC CHANGE . <Sign Out Dr. Gutierrez> STEPHON MCALLISTER, (Electronically Signed) Reported: ??10/14/2015 ??15:43 ? Page 1 of 1 Specimen (Source) Anatomical Collection Method Collection Time Re ceived Time Location / / Volume Laterality Gallbladder 10/11/2015 8:35 10/11/2015 AM ACOUSTICAL LOGGING ENGINEER 10:18 AM ACOUSTICAL LOGGING ENGINEER Scot Yanes MD LAB PATHOLOGY ORDERABLES Performing Organization Address [facility]/ZIP Code Phon e Number [facility] [address] [place] [id number] , urine (10/11/2015 6:15 AM ACOUSTICAL LOGGING ENGINEER) Analysis Performed At Patho logist Time Signature NEGATIVE Negative 10/11/2015 [place] Test, Urine 6:18 AM ACOUSTICAL LOGGING ENGINEER [facility] Specimen Anatomical Collection Method Collection Time Receive d Time (Source) Location / / Volume Laterality 10/11/2015 6:15 AM 6 6:17 ACOUSTICAL LOGGING ENGINEER AM ACOUSTICAL LOGGING ENGINEER Scot Yanes MD LAB URINE ORDERABLES Performing Organization Address City/[facility] Phon e Number [facility] [address] [place] [address] documented in this encounter Visit Diagnoses Diagnosis Other specified diseases of gallbladder documented in this encounter
--- OUTSIDE RECORDS SUMMARY | 2022-05-04 10:33 | XMS_ITS | Encounter Summary ---
:1980 Author Organization [facility] Address [address] [place] [address] Care Team Providers Name Role Phone Navya Elena MD Primary Care Provider Unavailable Reason for Visit Consultation (Routine) - Closed Specialty Diagnoses / Referred By Contact Referred To Contact Procedures Occupational Therapy / Diagnoses Closed displaced fracture of shaft of fourth metacarpal bone of right hand, initial encounter Chantel Headley Rehabilitation MD [address] [place] [address] Referral ID Status Reason Start Date Expiration Date Visits V isits Requested Authorized [id number] Closed Specialty 09/05/2019 09/05/2020 99 99 Services Required Encounter Details Date Type Department Care Team Description 09/13/2019 Evaluation [facility] Rehab Jose Hinojosa, Cinthia nger stiffness, right (Primary Dx); Services Ortho OTR Closed displaced fracture of shaft of fi fth metacarpal bone of right hand with routine healing, subsequent encounter [address] [place] [address] [place] [address] [place] [phone] Social History Tobacco Use Types Packs/Day Years [...] documented as of this encounter Progress Notes Jose Hinojosa OTR - 09/13/2019 3:00 PM CST Occupational Therapy Initial Evaluation REFERRING CLINICIAN: Chantel Headley MD REFERRING DIAGNOSIS: Right fourth metacarpal fracture TREATING DIAGNOSIS: Right finger stiffness INSURANCE TYPE: [place] NUMBER OF VISITS APPROVED: 99 ONSET DATE: 08/11/19 VISIT NUMBER: 1 ORDERS: Occupational therapy to evaluate and treat Right fourth metacarpal fracture. ??Finger swelling. OT for splint, edema management, motion. ?? Strengthening 6 weeks from injury. Allergies Allergen Reactions ??? Paroxetine Other (see comments) Made depression worse, Suicidal ??? Seasonal Other (see comments) Sneezing, itchy eyes SUBJECTIVE: Should I still wear my sling? Patient is a 39 year old female who was sledding with her children and ran into a snowman she used her right hand to protect herself. Past Medical History: Diagnosis Date ??? Allergic seasonal ??? Anxiety past hx ??? Depression past hx ??? Disease of thyroid gland pt takes OTC supplements: Thyroid Care and Thyroid Maintenance daily ??? Varicella childhood ??? Visual impairment when driving Past Surgical History: Procedure Laterality Date ??? CHOLECYSTECTOMY [address] Headley note dated 09/05/19: Radiographs [...] jobs for life stressor. Leisure: going to [place] ADLS: patient feels she is 30 % from 100 % Outcome measure: QuickDash: QuickDash: Score 50 % Impairment 88.64 LEVEL: Moderate OBJECTIVE: Patient is 4 weeks post 4th metacarpal fracture Hand appearance: purple red same as her left hand. Palm was more pallor/yellow and very edematous even into fingers and thumb. Forearm was without edema HAND DOMINANCE: right hand dominant PAIN: no pain just whole hand tingling AROM not formally measured today she is only able to wiggle her fingers from mcp and a little from PIP approx 10-20 degrees. ROM In degrees Right 09/13/19 Left 09/13/19 Thumb Opposition MCP Extension/Flexion IP Extension/Flexion Radial Abduction Palmar Abduction Index Finger MCP Extension/Flexion PIP Extension/Flexion DIP Extension/Flexion Middle Finger MCP Extension/Flexion PIP Extension/Flexion DIP Extension/Flexion Ring Finger MCP Extension/Flexion PIP Extension/Flexion DIP Extension/Flexion Small Finger MCP Extension/Flexion PIP Extension/Flexion DIP Extension/Flexion EDEMA: PITTING hand looks bruised, however her other hand is purple blue looking. Circumferential Measurements (in cms) Right 2/5 Left / Wrist 15.9 15.0 Palm 19.2 17.9 Thumb P2 6.7 5.6 Index Finger P1 PIP 7.8 5.8 P2 DIP P3 Middle Finger P1 PIP 6.8 5.8 P2 DIP P3 Ring Finger P1 PIP 6.5 5.5 P2 DIP P3 Small Finger P1 PIP 5.5 4.5 P2 DIP P3 SENSATION: Numbness and Tingling Whole hand after MLD tingling resolved. 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 Prefers homeopathic approac LEVEL: HIGH ASSESSMENT/CLINICAL DECISION MAKING: Patient presents to occupational therapy with impairments of increased edema, paresthesia, joint stiffness, healing fracture, loss of use of dominant hand required for all ADL, IADL and work duties. Patient's signs and symptoms are consistent with those of the referring diagnosis of right fourth metacarpal fracture. Rehabilitation potential is good based on today engagement. LEVEL: This occupational therapy evaluation has been deemed - High TREATMENT PROVIDED: ORTHOTIC FABRICATION: Fabricated a custom forearm based ulnar gutter orthosis with MCP flexed and IP's free including digits 3, 4 and 5. Provided with extra stockinet liners to wear for comfort and absorb perspiration. Provided with splint wear and care instruction and discussed. Patient will have splint on at all times, however, may remove splint for exercises, showering or if seated idle such as eating or watching tv. Ortho luisa 2, level 2 orthosis 25 minutes THERAPY EXERCISE: - Provided patient with AROM for fingers thumb. Practiced exercises today in clinic to ensure correct performance. Recommended home exercise program 10-20 reps , 2-3 times per day. Reviewed No resisteduse of R hand. - NO SLING USE. Try to normalize arm swing and try to use fingers for light non pain causing activity -CONTRAST baths 3 times per day. Provided handout and discussed -MLD (manual lymphatic massage ) practiced several times for correct performance. -Mini massager (if nerve pain presents with added ex) Also to help soften pitting tissues in hand Practiced today 1 therapy exercise 20 minutes ASSESSMENT: patient demonstrated independence with don and doff wear and care of splint. Demonstrated independence with above exercises and tolerated well today, with no pain when done with exercises. Verbalized understanding of no resisted us or R hand. Had a visible and able to lift some skin off back of hand after session today (MLD) SHORT TERM GOALS: 1. Patient with be Independent with home program within 2 visits. 2. Will have reduction of edema to .5 compared to left hand and resolution of paresthesia thus demonstrating improved healing and Independent performance of light ADL within 2 weeks. PRISON GOALS: 1. 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 PLAN: -Plan for next session: Fluidotherapy , measure AROM, assess edema and treat accordingly -Treatment will include but may not be limited to splinting and adjustments, active range of motion,passive range of motion, strengthening, home exercise program modification, edema management, modalities, pain management, kinesiotaping and continued education . FREQUENCY & DURATION: Patient will be seen 2 times per week, patient prefers to try one time per week for up to 12 weeks. Today's Treatment Summary: Moderate complexity, 1 therapy ex, level 2 splint , 2 ortho management, mini massager Total Treatment Time: 60 minutes MERON Deleon RITY OF ILLNESS COORDINATOR documented in this encounter Plan of Treatment Not on filedocumented as of this encounter Visit Diagnoses Diagnosis Finger stiffness, right - Primary Closed displaced fracture of shaft of fi fth metacarpal bone of right hand with routine healing, subsequent encounter documented in this encounter Care Teams Closing Coordinator Relationship Specialty Start Date End Date Navya Elena MD PCP - General Family Medicine 07/13/19 documented as of this encounter
--- OUTSIDE RECORDS SUMMARY | 2022-05-04 10:33 | XMS_ITS | Encounter Summary ---
:1980 Author Organization [facility] Address [address] [place] [address] Care Team Providers Name Role Phone Navya Elena MD Primary Care Provider Unavailable Encounter Details Date Type Department Care Team Description 07/13/2019 Lab [place] Flank pain; [address] [place] [address] Social History Tobacco Use Types Packs/Day Years [...] Name Priority Date/Time Associated Diagnosis Comme nts GLOMERULAR FILTRATION Routine 07/13/2019 9:26 Flank pain Res ults for this RATE AM DIGITAL DEVELOPER procedure are i n the results section. CBC BRANCH OFFICE Routine 07/13/2019 9:26 Flank pain Results for this W/DIFF AM DIGITAL DEVELOPER procedure are i n the results section. TSH Routine 07/13/2019 9:26 Acquired Results for this AM DIGITAL DEVELOPER hypothyroidism procedure are in the results section. T4, FREE Routine 07/13/2019 9:26 Acquired Results for this AM DIGITAL DEVELOPER hypothyroidism procedure are in the results section. COMPREHENSIVE Routine 07/13/2019 9:26 Flank pain Results for this METABOLIC PANEL AM DIGITAL DEVELOPER procedure ar e in the results section. URINALYSIS WITH Routine 07/13/2019 9:10 Flank pain Results f or this REFLEX MICROSCOPIC AM DIGITAL DEVELOPER procedure are in the results section. documented in this encounter Results Glomerular filtration rate (GFR) (07/13/2019 9:26 AM DIGITAL DEVELOPER) P athologist Signature GFR >60 07/13/2019 [facility] 1:58 PM [facility] >60 07/13/2019 [facility] [place] GFR 1:58 PM [facility] Comment: GFR calculated from serum creatinine v alue Chronic Kidney Disease less than 60 mL/m in/1.73 m2 Kidney Failure less than 15 mL/min/1.73 m2 Note: effective 12/22/06 IDMS-Traceable MDRD Study Equation used. Specimen Anatomical Collection Method Collection Time Receive d Time (Source) Location / / Volume Laterality 07/13/2019 9:26 AM 9 9:26 DIGITAL DEVELOPER AM DIGITAL DEVELOPER Navya Elena MD LAB BLOOD ORDERABLES Performing Organization Address City/[facility]/ZIP Code Phon e Number [facility] [address] [place] [phone] (ABNORMAL) TSH (07/13/2019 9:26 AM DIGITAL DEVELOPER) Analysis Performed At Patho logist Time Signature TSH, Sensitive 6.32 (H) 0.46 - 07/13/2019 [place] 4.68 mIU/L 2:01 PM [facility] Comment: The results from this [...] (Source) Location / / Volume Laterality Blood 07/13/2019 9:26 AM 9 DIGITAL DEVELOPER 12:04 PM DIGITAL DEVELOPER Navya Elena MD LAB BLOOD ORDERABLES Performing Organization Address City/[facility]/ZIP Code Phon e Number [facility] [address] [place] [phone] (ABNORMAL) T4, free (07/13/2019 9:26 AM DIGITAL DEVELOPER) P athologist Signature Free T4 0.69 (L) 0.78 - 2.19 07/13/2019 [facility] ng/dL 2:01 PM [facility] Comment: The results from this [...] (Source) Location / / Volume Laterality Blood 07/13/2019 9:26 AM 9 DIGITAL DEVELOPER 12:04 PM DIGITAL DEVELOPER Navya Elena MD LAB BLOOD ORDERABLES Performing Organization Address City/State/ZIP Code Phon e Number [facility] [address] [place] [address] (ABNORMAL) CBC Branch Off w/Diff (07/13/2019 9:26 AM DIGITAL DEVELOPER) Patholo gist Method Time Signature WBC 4.8 3.5 - 10.5 07/13/2019 [facility] [place] K/uL 9:49 AM DIGITAL DEVELOPER LAB RBC 4.98 3.90 - 07/13/2019 [facility] [place] 5.00 M/uL 9:49 AM DIGITAL DEVELOPER LAB Hemoglobin 15.0 12.0 - 07/13/2019 [facility] [place] 15.5 g/dL 9:49 AM DIGITAL DEVELOPER LAB Hematocrit 44.7 (H) 35.0 - 07/13/2019 [facility] [place] 44.0 % 9:49 AM DIGITAL DEVELOPER LAB Platelets 185 150 - 450 07/13/2019 [facility] [place] K/uL 9:49 AM DIGITAL DEVELOPER LAB MCV 89.8 81.6 - 07/13/2019 [facility] [place] 98.3 fL 9:49 AM DIGITAL DEVELOPER LAB MCH 30.1 26.0 - 07/13/2019 [facility] [place] 32.0 pg 9:49 AM DIGITAL DEVELOPER LAB MCHC 33.6 32.0 - 07/13/2019 [facility] [place] 36.0 g/dL 9:49 AM DIGITAL DEVELOPER LAB RDW 11.9 11.9 - 07/13/2019 [facility] [place] 15.5 % 9:49 AM DIGITAL DEVELOPER LAB Lymphocytes % 25.2 18.0 - 07/13/2019 [facility] [place] 45.0 % 9:49 AM DIGITAL DEVELOPER LAB Mid-size Cells 8.6 3.3 - 10.1 07/13/2019 [facility] [place] % 9:49 AM DIGITAL DEVELOPER LAB Granulocytes/Angelita 66.2 45.8 - 07/13/2019 [facility] O trophils 73.7 % 9:49 AM DIGITAL DEVELOPER LAB Lymphocytes 1.2 0.9 - 2.9 07/13/2019 [facility] [place] Absolute K/uL 9:49 AM DIGITAL DEVELOPER LAB MIDS Absolute 0.4 0.2 - 0.8 07/13/2019 [facility] [place] K/uL 9:49 AM DIGITAL DEVELOPER LAB Granulocytes/Angelita 3.2 2.1 - 8.7 07/13/2019 [facility] trophils K/uL 9:49 AM DIGITAL DEVELOPER LAB Absolute Specimen Anatomical Collection Method Collection Time Receive d Time (Source) Location / / Volume Laterality Blood 07/13/2019 9:26 AM 9 9:26 DIGITAL DEVELOPER AM DIGITAL DEVELOPER Navya Elena MD LAB BLOOD ORDERABLES Performing Organization Address City/State/ZIP Code Phon e Number [facility] [address] [place] [address] (ABNORMAL) Comprehensive metabolic panel (07/13/2019 9:26 AM DIGITAL DEVELOPER) Analysis Performed At [facility] logist Time Signature Total Protein 6.8 6.3 - 8.2 07/13/2019 [place] g/dL 1:58 PM [facility] Albumin, Serum 4.0 3.5 - 5.0 07/13/2019 [place] g/dL 1:12 PM [facility] Total Bilirubin <0.7 0.1 - 1.0 07/13/2019 [place] mg/dL 1:58 PM [facility] AST 26 8 - 43 U/L 07/13/2019 [place] 1:58 PM [facility] Alkaline 33 (L) 38 - 128 07/13/2019 [place] Phosphatase U/L 1:58 PM [facility] ALT (SGPT) 21 0 - 34 U/L 07/13/2019 [place] 1:58 PM [facility] Sodium 141 135 - 145 07/13/2019 [place] mEq/L 1:58 PM [facility] Potassium 4.1 3.5 - 5.1 07/13/2019 [place] mEq/L 1:58 PM [facility] Chloride 101 98 - 107 07/13/2019 [place] mEq/L 1:58 PM [facility] CO2 29 22 - 29 07/13/2019 [place] mmol/L 1:12 PM [facility] BUN 15 5 - 25 07/13/2019 [place] mg/dL 1:58 PM [facility] Creatinine 0.7 0.4 - 1.2 07/13/2019 [place] mg/dL 1:58 PM [facility] Glucose 83 70 - 100 07/13/2019 [place] mg/dL 1:58 PM [facility] Calcium, Total,S 9.7 8.4 - 10.2 07/13/2019 [place] mg/dL 1:58 PM [facility] Fasting? Yes 07/13/2019 [place] 9:26 AM [facility] Specimen Anatomical Collection Method Collection Time Receive d Time (Source) Location / / Volume Laterality Blood 07/13/2019 9:26 AM 9 DIGITAL DEVELOPER 12:04 PM DIGITAL DEVELOPER Navya Elena MD LAB BLOOD ORDERABLES Performing Organization Address City/State/ZIP Code Phon e Number [facility] [address] [place] [phone] (ABNORMAL) Urinalysis with reflex microscopic (07/13/2019 9:10 AM DIGITAL DEVELOPER) [facility] Method Time Signature Type CLEAN CATCH 07/13/2019 [facility] 9:48 AM DIGITAL DEVELOPER [place] [facility] Color, Urine YELLOW YELLOW 07/13/2019 [facility] 9:48 AM DIGITAL DEVELOPER [place] [facility] Clarity, CLEAR CLEAR 07/13/2019 [facility] Urine 9:48 AM DIGITAL DEVELOPER [place] [facility] Glucose, NEGATIVE NEGATIVE 07/13/2019 [facility] mg/dL 9:48 AM DIGITAL DEVELOPER [place] [facility] Bilirubin, NEGATIVE NEGATIVE 07/13/2019 [facility] Urine 9:48 AM DIGITAL DEVELOPER [facility] Ketones, NEGATIVE NEGATIVE 07/13/2019 [facility] Urine mg/dL 9:48 AM DIGITAL DEVELOPER [place] [facility] Specific 1.020 1.000 07/13/2019 [facility] [place], ->=1.030 9:48 AM [facility]IGITAL DEVELOPER [facility] Blood, Urine NEGATIVE NEGATIVE 07/13/2019 [facility] 9:48 AM DIGITAL DEVELOPER [facility] pH, Urine 8.5 (A) 5.0 - 7.0 07/13/2019 [facility] 9:48 AM DIGITAL DEVELOPER [place] [facility] Protein, NEGATIVE NEGATIVE-TRA 07/13/2019 [facility] Urine CE mg/dL 9:48 AM DIGITAL DEVELOPER [place] [facility] Urobilinogen, 0.2 0.2 - 1.0 07/13/2019 [facility] Urine E.U./dL 9:48 AM DIGITAL DEVELOPER [facility] Nitrite, NEGATIVE NEGATIVE 07/13/2019 [facility] Urine 9:48 AM DIGITAL DEVELOPER [facility] Leukocytes, NEGATIVE NEGATIVE 07/13/2019 [facility] Urine 9:48 AM DIGITAL DEVELOPER [facility] Specimen Anatomical Collection Method Collection Time Receive d Time (Source) Location / / Volume Laterality Urine (Urine, 07/13/2019 9:10 AM 07/13/20 19 9:10 Clean Catch) DIGITAL DEVELOPER AM DIGITAL DEVELOPER Navya Elena MD LAB URINE ORDERABLES Performing Organization Address City/State/ZIP Code Phon e Number [facility] [address] [facility] [address] [place] [address] documented in this encounter Visit Diagnoses Diagnosis Flank pain Abdominal pain, unspecified site Acquired hypothyroidism Unspecified hypothyroidism documented in this encounter Care Teams Cafe Cook Relationship Specialty Start Date End Date Navya Elena MD PCP - General Family Medicine 07/13/19 documented as of this encounter
--- OUTSIDE RECORDS SUMMARY | 2022-05-04 10:33 | XMS_ITS | Encounter Summary ---
:1980 Author Organization [facility] Address [address] [place] [address] Care Team Providers Name Role Phone Navya Elena MD Primary Care Provider Unavailable Reason for Visit Reason Comments Follow-up Fracture Encounter Details Date Type Department Care Team Description 09/20/2019 Office Visit [facility] Fang, Yolanda randolphe d Orthopedics MD Chantel fracture of shaft of [address] [place] [address] [address] of right hand with [phone] [place], [place] routine [place]alin g, [id number] subsequent encounter [phone] (Primary Dx) (Work) Social History Tobacco Use [...] documented as of this encounter Progress Notes Chantel Headley MD - 09/20/2019 9:20 AM CST Estab Patient Visit Chief complaint: The encounter diagnosis was Closed displaced fracture of shaft of fourth metacarpalbone of right hand with routine healing, subsequent encounter. History of Present Illness: Date of Injury: 08/12/2019 This patient is a 39 y.o. year old right -hand-dominant female who I am seeing in follow up. The patient comes in today for evaluation and management of right fourth metacarpal diaphyseal fracture. On August 12, 2019 the patient was sledding with her daughter. They were about to hit a frozen snowman when the patient put out her right hand to stop them. Patient subsequent had swelling and painin her right hand. She was evaluated by her primary care provider on August 14, 2019. Patient statesthat she has been using a removable ulnar gutter fiberglass splint. She continues to have swelling and pain in her hand and fingers. Patient states that she takes vitamin C and supplements normally. She states she does have some numbness and tingling all of the fingers that comes and goes. Denies any previous injuries to that hand. The patient is now 5 weeks out from injury. She comes today for motion check and therapy. Patient feels that swelling and motion have improved. Past Medical History: Diagnosis Date ??? Allergic seasonal ??? Anxiety past hx ??? Depression past hx ??? Disease of thyroid gland pt takes OTC supplements: Thyroid Care and Thyroid Maintenance daily ??? Varicella childhood ??? Visual impairment when driving Patient Active Problem List Diagnosis ??? Acquired hypothyroidism Past Surgical History: Procedure Laterality Date ??? CHOLECYSTECTOMY 2016 Outpatient Medications Prior to Visit Medication Sig Dispense Refill ??? Cholecalciferol (VITAMIN D3 PO) 1 capsule daily ??? [place]-3 Fatty Acids (FISH OIL OME[place]-3 PO) 1 capsule daily ??? Probiotic Product (PROBIOTIC DAILY PO) 1 capsule daily ??? THYROID PO Take by mouth No facility-administered medications prior to visit. Paroxetine and Seasonal Social History Socioeconomic History ??? Marital status: Spouse name: Not on file ??? Number of children: Not on file ??? Years of education: Not on file ??? Highest education level: Not on file Occupational History ??? Not on file Social Needs ??? Financial resource strain: Not on file ??? Food insecurity: Worry: Not on file Inability: Not on file ??? Transportation needs: Medical: Not on file Non-medical: Not on file Tobacco Use ??? Smoking status: Never Smoker ??? Smokeless tobacco: Never Used Substance and Sexual Activity ??? Alcohol use: No Frequency: Never ??? Drug use: No ??? Sexual activity: Not on file Lifestyle ??? Physical activity: Days per week: Not on file Minutes per session: Not on file ??? Stress: Not on file Relationships ??? Social connections: Talks on phone: Not on file Gets together: Not on file Attends orthodoxy service: Not on file Active member of club or organization: Not on file Attends meetings of clubs or organizations: Not on file Relationship status: Not on file ??? Intimate partner violence: Fear of current or ex partner: Not on file Emotionally abused: Not on file Physically abused: Not on file Forced sexual activity: Not on file Other Topics Concern ??? Not on file Social History Narrative ??? Not on file Social History Tobacco Use Smoking Status Never Smoker Smokeless Tobacco Never Used Employment: Preschool in [employer] ROS: Negative for fevers, chills, nausea, vomiting, chest pain, shortness of breath. Physical Exam: General: The patient is in no distress, she is alert, pleasant, and cooperative. Ambulates without assistance Medium build. No peripheral edema noted, sclera and conjunctiva clear, oral mucosa pink and moist, nonlabored respirations. RIGHT UPPER EXTREMITY: Fingers are pink and warm, sensation is diminished light touch over all the fingertips. Moderate swelling noted in the hand and in the fingers, particularly the ring finger. There is no bony tenderness in the fingers although they are quite swollen. Patient is able to initiate range of motion with mild extension lag and no flexion lag. No obvious rotational or angular deformity of the ring finger is present. Skin is intact throughout. Mild ecchymosis noted in the palm and at the dorsal hand around the fourth metacarpal. Mild tenderness noted today over the fourth metacarpal. Assessment/Plan: 1. Right fourth metacarpal fracture We have discussed the diagnosis and treatment options. The patient has progressed very well over thepast week, range of motion is almost full with a mild residual extension lag of the ring finger. Patient is planning on going to [place] but should be back in about 4 weeks, will schedule a follow-up with me and with therapy then. X-rays of the right hand 3 views at next visit. Able to transition to hand based splint now- splint needs to allow for full MCP joint extension. May need additional splint that she can go in the water in [place] for protection as needed. [facility]. Can use splint at work as needed, otherwise should have it off as much as possible for finger motion. Precautions education reassurance provided to patient who demonstrates understanding. All questions and concerns were addressed prior to the conclusion of the encounter. No orders of the defined types were placed in this encounter. IBILITY CLERK documented in this encounter Plan of Treatment Not on filedocumented as of this encounter Visit Diagnoses Diagnosis Closed displaced fracture of shaft of fo urth metacarpal bone of right hand with routine healing, subsequent encounter - Primary documented in this encounter Care Teams Hydroelectric Station Operator Chief Relationship Specialty Start Date End Date Navya Elena MD PCP - General Family Medicine 07/13/19 documented as of this encounter
--- OUTSIDE RECORDS SUMMARY | 2022-05-04 10:33 | XMS_ITS | Encounter Summary ---
:[address] [facility] Address [address] [place] [address] Care Team Providers Name Role Phone Unavailable Primary Care Provider Unavailable Encounter Details Date Type Department Care Team Description 05/08/2016 Hospital Encounter [facility] Radiolo gy Trudi Gusman, Ovarian cyst [address] [facility] CHILD DEVELOPMENT ASSISTANT, HELP DESK TEAM LEADER [place], [place] [id number] Social History Tobacco Use Types Packs/Day Years [...] Name Priority Date/Time Associated Diagnosis Comme nts CT ABDOMEN PELVIS W Routine 05/08/2016 12:02 PM R esults for this CONTRAST CDT procedure are i n the results section. documented in this encounter Results CT abdomen pelvis w IV contrast (05/08/2016 12:02 PM CDT) Anatomical Region Laterality Modality Body Computed Tomography Specimen (Source) Anatomical Collection Method Collection Time Re ceived Time Location / / Volume Laterality 05/08/2016 12:02 PM CDT Narrative 05/08/2016 2:09 PM CDT CLINICAL HISTORY RLQ pain, dyspareunia COMPARISON None. TECHNIQUE CT scan of the abdomen and pelvis was pe rformed from the lung bases to the proximal femurs. 70 mL Omnipaque 350 intravenous contrast was administered without any complication. ? ? FINDINGS Lower chest: The heart is normal in size and configuration, without pericardial effusion. The lung bases and pleural spaces are clear. ?? Liver: The liver is normal in size, cont our, and attenuation. There is mild intrahepatic biliary ductal dila tion which may be related to cholecystectomy. ?? Gallbladder: Status post cholecystectomy . ?? Pancreas: Unremarkable. Spleen: Normal in size and attenuation. ?? Adrenal glands: Unremarkable. ?? Kidneys: There is symmetric renal cortic al enhancement in contrast excretion. ?? Bowel: ??The small bowel and colon are n ormal in size and caliber. Appendix is normal. ?? Peritoneum: There is no intraperitoneal free air or abdominal ascites. ?? Vasculature: The abdominal aorta is norm al in course and caliber. ?? Adenopathy: None. ?? Pelvic viscera: ??The bladder is unremar kable. ??There is a possible irregular 1.7 cm cyst within the right o vary with surrounding free fluid. ?? Skeletal structures: No destructive osse ous lesions are seen. IMPRESSION 1. THERE IS A SLIGHTLY IRREGULAR CYST WI THIN THE RIGHT OVARY MEASURING 1.7 CM WHICH MAY REPRESENT A P ARTIALLY RUPTURED CYST WITH SURROUNDING FREE FLUID AROUND THE RIGHT OVARY. Procedure Note Kolby Salmeron MD - 05/01/2018Formattin g of this note might be different from the original. CLINICAL HISTORY RLQ pain, dyspareunia COMPARISON None. TECHNIQUE CT scan of the abdomen and pelvis was pe rformed from the lung bases to the proximal femurs. 70 mL Omnipaque 350 intravenous contrast was administered without any complication. FINDINGS Lower chest: The heart is normal in size and configuration, without pericardial effusion. The lung bases and pleural spaces are clear. Liver: The liver is normal in size, cont our, and attenuation. There is mild intrahepatic biliary ductal dila tion which may be related to cholecystectomy. Gallbladder: Status post cholecystectomy . Pancreas: Unremarkable. Spleen: Normal in size and attenuation. Adrenal glands: Unremarkable. Kidneys: There is symmetric renal cortic al enhancement in contrast excretion. Bowel: The small bowel and colon are nor mal in size and caliber. Appendix is normal. Peritoneum: There is no intraperitoneal free air or abdominal ascites. Vasculature: The abdominal aorta is norm al in course and caliber. Adenopathy: None. Pelvic viscera: The bladder is unremarka ble. There is a possible irregular 1.7 cm cyst within the right o vary with surrounding free fluid. Skeletal structures: No destructive osse ous lesions are seen. IMPRESSION 1. THERE IS A SLIGHTLY IRREGULAR CYST WI THIN THE RIGHT OVARY MEASURING 1.7 CM WHICH MAY REPRESENT A P ARTIALLY RUPTURED CYST WITH SURROUNDING FREE FLUID AROUND THE RIGHT OVARY. Trudi Gusman APRN, JUANY IMG CT PROCEDURES documented in this encounter Visit Diagnoses Diagnosis Ovarian cyst Other and unspecified ovarian cyst documented in this encounter
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
--- OUTSIDE RECORDS SUMMARY | 2022-05-04 10:33 | XMS_ITS | Encounter Summary ---
:1980 Author Organization [facility] Address [address] [place] [address] Care Team Providers Name Role Phone Ed Galvan MD Primary Care Provider Unavailable Encounter Details Date Type Department Care Team Description 05/25/2018 Lab [place] Screening for hyperlipidemia ; [facility] [address] Screening for diabetes eri real; [place] [address] Lower abdominal pain; [phone] Hypothyroidism, unspecified type Social History Tobacco Use Types Packs/Day Years [...] this encounter Miscellaneous Notes Addendum Note - Agatha Palomo DNP, ALEXEY, JUANY - 05/25/2018 10:20 AM CDT Addended by: AGATHA PALOMO on: 05/31/2018 09:36 AM Modules accepted: Orders documented in this encounter Plan of Treatment Not on filedocumented as of this encounter Procedures Procedure Name Priority Date/Time Associated Diagnosis Comme nts FASTING ? Routine 05/25/2018 10:46 Screening for diabetes R esults for this AM CDT mellitus procedure are i n the results section. HEMOCUE GLUCOSE Routine 05/25/2018 10:46 Screening for diabete s Results for this AM CDT mellitus procedure are i n the results section. C-REACTIVE PROTEIN Routine 05/25/2018 10:46 Lower abdominal pa in Results for this AM CDT procedure are i n the results section. TSH Routine 05/25/2018 10:46 Hypothyroidism, Results for this AM CDT unspecified type procedure a re in the results section. T4, FREE Routine 05/25/2018 10:46 Hypothyroidism, Results for this AM CDT unspecified type procedure a re in the results section. LIPID PANEL Routine 05/25/2018 10:46 Screening for Results fo r this AM CDT hyperlipidemia procedure are in the results section. documented in this encounter Results Fasting ? (05/25/2018 10:46 AM CDT) athologist Signature Fasting? Yes 05/25/2018 [facility] 10:47 AM CDT LAB Specimen Anatomical Collection Method Collection Time Receive d Time (Source) Location / / Volume Laterality 05/25/2018 10:46 05/25/2018 AM CDT 10:46 AM CDT Agatha Shah DNP, CATHEAD WORKER, DEPLOYMENT SPECIALIST LAB BLOOD ORDERABLES Performing Organization Address City/State/ZIP Code Phon e Number [facility] [address] [place] [address] [place] [address] (ABNORMAL) TSH (05/25/2018 10:46 AM CDT) [facility] gist Method Time Signature TSH, Sensitive 11.60 (H) 0.46 - 05/26/2018 [facility] 4.68 mIU/L 2:33 PM T [facility] Comment: The results from [...] Location / / Volume Laterality Blood (Blood, 05/25/2018 10:46 05/26/2018 1:13 Venous) AM CDT PM CDT Agatha Shah DNP, CATHEAD WORKER, DEPLOYMENT SPECIALIST LAB BLOOD ORDERABLES Performing Organization Address [facility] Phon e Number [facility] [address] [place] [address] (ABNORMAL) T4, free (05/25/2018 10:46 AM CDT) athologist Signature Free T4 0.49 (L) 0.78 - 2.19 05/26/2018 [facility] ng/dL 2:32 PM CDT [facility]ENTER [facility] Comment: The results from this [...] Location / / Volume Laterality Blood (Blood, 05/25/2018 10:46 05/26/2018 1:13 Venous) AM CDT PM CDT Agatha Shah DNP, CATHEAD WORKER, DEPLOYMENT SPECIALIST LAB BLOOD ORDERABLES Performing Organization Address [facility] Phon e Number [facility] [address] [place] [address] C-reactive protein (05/25/2018 10:46 AM CDT) athologist Signature CRP <5.0 0.0 - 9.9 05/26/2018 [facility] mg/L 2:03 PM CDT [facility] Comment: . Specimen Anatomical Collection Method Collection Time Receive d Time (Source) Location / / Volume Laterality Blood 05/25/2018 10:46 05/26/2018 1:13 AM CDT PM CDT Agatha Shah DNP, CATHEAD WORKER, DEPLOYMENT SPECIALIST LAB BLOOD ORDERABLES Performing Organization Address [facility] Phon e Number [facility] [address] [place] [address] (ABNORMAL) HemoCue glucose (05/25/2018 10:46 AM CDT) athologist Signature Glucose, Bld 106 (H) 70 - 100 05/25/2018 [facility] mg/dL 11:19 AM CDT LAB Comment: . Specimen Anatomical Collection Method Collection Time Receive d Time (Source) Location / / Volume Laterality Blood 05/25/2018 10:46 05/25/2018 AM CDT 10:46 AM CDT Agatha Shah DNP, CATHEAD WORKER, DEPLOYMENT SPECIALIST LAB BLOOD ORDERABLES Performing Organization Address City/State/ZIP Code Phon e Number [facility] [address] [place] [address] [place] [address] (ABNORMAL) Lipid panel (05/25/2018 10:46 AM CDT) athologist Signature Cholesterol 67 0 - 199 05/26/2018 [facility] mg/dL 1:42 PM T [facility] Comment: Recommended by National Cholesterol Education Program (ATP III) -------- Cholesterol Ranges -------- <200 ? Desirable 200-239 ? Borderline high >=240 ? High Triglycerides 49 0 - 149 mg/dL 05/26/2018 1:[address] [facility] Comment: -------- TRIG Ranges -------- <150 ?Normal 150-199 ? Borderline high 200-499 ? High >=500 ? Very high HDL 28 (A) 40 - 60 mg/dL 05/26/2018 1:42 PM T [facility] Comment: -------- HDL Ranges -------- <40 ?Low 40-59 ?Normal >=60 ? Optimal LDL Calculated 29 0 - 99 mg/dL 05/26/2018 1:42 PM T [facility] Comment: -------- LDL Ranges -------- <100 ? Optimal 100-129 ?Near optimal/above op timal 130-159 ?Borderline high 160-189 ?High >=190 ?Very high Fasting? Yes 05/25/2018 10:47 AM CDT [facility] Specimen Anatomical Collection Method Collection Time Receive d Time (Source) Location / / Volume Laterality Blood (Blood, 05/25/2018 10:46 05/26/2018 1:04 Venous) AM CDT PM CDT Agatha Shah DNP, CATHEAD WORKER, DEPLOYMENT SPECIALIST LAB BLOOD ORDERABLES Performing Organization Address City/State/ZIP Code Phon e Number [facility] [address] [place] [address] documented in this encounter Visit Diagnoses Diagnosis Screening for hyperlipidemia Screening for lipoid disorders Screening for diabetes mellitus Lower abdominal pain Abdominal pain, other specified site Hypothyroidism, unspecified type documented in this encounter Care Teams Frame Operator Relationship Specialty Start Date End Date Ed Galvan MD PCP - General 03/15/18 07/12/19 documented as of this encounter
--- OUTSIDE RECORDS SUMMARY | 2022-05-04 10:33 | XMS_ITS | Encounter Summary ---
:1980 Author Organization [facility] Address [address] [place] [address] Care Team Providers Name Role Phone Navya Elena MD Primary Care Provider Unavailable Reason for Visit Reason Comments Follow-up Fracture Consultation (Routine) - Closed Specialty Diagnoses / Referred By Contact Referred To Contact Procedures Occupational Therapy / Diagnoses Closed displaced fracture of shaft of fourth metacarpal bone of right hand, initial encounter Chantel Headley Rehabilitation MD [address] [place] [address] Referral ID Status Reason Start Date Expiration Date Visits V isits Requested Authorized [id number] Closed Specialty 09/05/2019 09/05/2020 99 99 Services Required Encounter Details Date Type Department Care Team Description 09/13/2019 Office Visit [facility] Alexafransisco, Displaced fract ure of Orthopedics MD Chantel shaft of fourth [address] met[address]arpal [place] [address] Street hand, subsequent [phone] [place], [place] encounter for fracture [address] with routine healing [phone] (Primary Dx) (Work) Social History Tobacco Use [...] encounter Progress Notes Chantel Headley MD - 09/13/2019 2:20 PM CST Estab Patient Visit Chief complaint: The encounter diagnosis was Displaced fracture of shaft of fourth metacarpal bone, right hand, subsequent encounter for fracture with routine healing. History of Present Illness: Date of Injury: [...] to that hand. The patient is now 4 weeks out from injury. She comes today for cast removal and therapy. Patient states that all of her fingers feel little bit numb and tingly today in clinic. Denies any significant pain. Past Medical History: Diagnosis Date ??? Allergic [...] (VITAMIN D3 PO) 1 capsule daily ??? 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 No tenderness noted today over the fourth metacarpal. RADIOGRAPHS: I have independently reviewed radiographs of the right hand. Radiographs show mildly displaced fourth metacarpal diaphyseal fracture, the fracture is oblique and in about 12 degrees of apex dorsal angulation. Unchanged Assessment/Plan: 1. Right fourth metacarpal fracture We have discussed the diagnosis and treatment options. Cast has been removed. Patient will start occupational therapy for splinting and range of motion. We will really have to work on addressing the range of motion and the edema in the hand and fingers. I will see the patient back in clinic next week so I can keep a close eye on her progress. She will have therapy scheduled on that same day as well. No need for radiographs on that day. Precautions education reassurance provided to patient who demonstrates understanding. All questions and concerns were addressed prior to the conclusion of the encounter. No orders of the defined types were placed in this encounter. CTOR OF RETAIL MARKETING documented in this encounter Plan of Treatment Scheduled Referrals Name Type Priority Associated Order Schedule Diagnoses Ambulatory referral Outpatient Referral Routine Closed displac ed Ordered: to Occupational fracture of shaft 020 Therapy of fourth metacarpal bone of right hand, initial encounter documented as of this encounter Visit Diagnoses Diagnosis Displaced fracture of shaft of fourth me tacarpal bone, right hand, subsequent encounter for fracture with routine heal ing - Primary documented in this encounter Care Teams Head Porter Baggage Relationship Specialty Start Date End Date Navya Elena MD PCP - General Family Medicine 07/13/19 documented as of this encounter
--- OUTSIDE RECORDS SUMMARY | 2022-05-04 10:33 | XMS_ITS | Encounter Summary ---
:[address] [facility] Address [address] [place] [address] Care Team Providers Name Role Phone Navya Elena MD Primary Care Provider Unavailable Encounter Details Date Type Department Care Team Description 09/12/2019 Orders Only [facility], Closed displace d Orthopedics MD Chantel fracture of shaft of [address] [place] [address] SE of right hand, initial [phone] [place], [place] encounter ([place]) [id number] Social History Tobacco Use Types Packs/Day [...] Name Priority Date/Time Associated Diagnosis Comme nts XR HAND 3+ VIEWS Today 09/13/2019 2:10 PM Closed displaced R esults for this RIGHT NEEDLE MOLDER fracture of shaft of procedu re are in fourth metacarpal the result s bone of right hand, section. initial encounter documented in this encounter Results X-ray Hand 3+ Views Right (09/13/2019 2:10 PM NEEDLE MOLDER) Anatomical Region Laterality Modality Upper Extremities, Hand Right Radiographic Nery ging Specimen (Source) Anatomical Collection Method Collection Time Re ceived Time Location / / Volume Laterality 09/13/2019 2:10 PM NEEDLE MOLDER Impressions 09/13/2019 2:49 PM NEEDLE MOLDER IMPRESSION: HAND COMPLETE RIGHT (3 VIEWS) Alignment is similar to the prior exam. ??A previously seen oblique fracture at the distal metadiaphysis of the 4th metacarpal appears minimally more lucent. ??Soft tissue swe lling is demonstrated dorsally over metacarpals. Narrative 09/13/2019 2:49 PM NEEDLE MOLDER INDICATION: XOP Right hand COMPARISON: Right hand radiographs September 04, 2019 Procedure Note Ling Pabon MD - 09/13/2019 INDICATION: XOP Right hand COMPARISON: Right hand radiographs September 04, 2019 IMPRESSION: HAND COMPLETE RIGHT (3 VIEWS) Alignment is similar to the prior exam. A previously seen oblique fracture at the distal metadiaphysis of the 4th metacarpal appears minimally more lucent. Soft tissue swell ing is demonstrated dorsally over metacarpals. Chantel Headley MD IMG XR PROCEDURES documented in this encounter Visit Diagnoses Diagnosis Closed displaced fracture of shaft of fo urth metacarpal bone of right hand, initial encounter - Primary documented in this encounter Care Teams Media Reconciliation Specialist Relationship Specialty Start Date End Date Navya Elena MD PCP - General Family Medicine 07/13/19 documented as of this encounter
--- OUTSIDE RECORDS SUMMARY | 2022-05-04 10:33 | XMS_ITS | Encounter Summary ---
:1980 Author Organization [facility] Address [address] [place] [address] Care Team Providers Name Role Phone Navya Elena MD Primary Care Provider Unavailable Reason for Visit Reason Comments Annual Exam ?hernia pain radiates to back trouble with digestion Encounter Details Date Type Department Care Team Description 07/13/2019 Office Visit Navya Hanson Well adult exam (Primary Dx) ; [address] [facility] Dk Katz MD Acquired hypothyroidism; [place] [address] Flank pain [phone] Social History Tobacco Use Types Packs/Day Years [...] Sign Reading Time Taken Comments Blood Pressure 102/66 07/13/2019 8:23 AM NURSING SCHEDULER Pulse 84 07/13/2019 8:23 AM NURSING SCHEDULER Temperature 38.2 ??C (100.8 ??F) 07/13/2019 8:23 AM NURSING SCHEDULER Respiratory Rate 16 07/13/2019 8:23 AM NURSING SCHEDULER Oxygen Saturation 99% 07/13/2019 8:23 AM NURSING SCHEDULER Inhaled Oxygen Concentration - - Weight 62.3 kg (137 lb 5.6 oz) 07/13/2019 8:23 AM NURSING SCHEDULER Height 169.6 cm (5' 6.77) 07/13/2019 8:23 AM NURSING SCHEDULER Body Mass Index 21.66 07/13/2019 8:23 AM NURSING SCHEDULER documented in this encounter Progress Notes Carmella Vázquez RN - 07/13/2019 8:20 AM CST Pt declines flu vaccine ING SCHEDULER Navya Elena MD - 07/13/2019 8:20 AM CST Well Adult - Estab Subjective Patient ID: Hattie Brenner is a 39 y.o. female. Chief Complaint Patient presents with ??? Annual Exam ?hernia pain radiates to back ??? trouble with digestion HPI Patient is a 39-year-old P2 who is here for a physical exam. She also has concerns about abdominal pain and possibly a hernia. She tells me that she has had digestive problems since she had her gallbladder removed 4 years ago and that had led her to seek homeopathic treatment which she is doing presently. She is tells me she takes a digestive aid and also takes a supplement for her thyroid and a supplement for mood. She says that she is concerned because in the last couple weeks her abdominal symptoms have worsened. She says is not constant pain but comes and goes and is worse by the end of the day. Sometimes it is like a cramping pain like when she has her period. Sometimes it wraps around the rig ht side to her back. She has back pain from time to time but that seems to coincide with her abdominal issues as well. She says her bowels are somewhat irregular and she does not have a bowel movement every day. She periodically has some constipation. Her last bowel movement was today. She denies nausea, vomiting. From time to time she has decreased appetite but no weight loss. She denies any urinarytract infection, kidney infection, urinary symptoms. She says she occasionally has vaginal discharge. Her periods are regular, occurring monthly and not heavy. She had a normal Pap smear and HPV 1 yearago. She says all her Pap smears have been normal. She has a family history of breast cancer in a paternal aunt. She tells me she did 1 mammography in the past that was normal. She says that she recently did picture your health which is an annual screening test at that was recommended through her homeopathic treatments and she is waiting for those results. She describes herself as healthy. She is active. Her weight is stable. She does not smoke. She does not take prescription medication for her thyroid because she does not want to take prescription drugs. She said when she took levothyroxine in the past it caused her heart to race. Current Outpatient Medications on File Prior to Visit Medication Sig Dispense Refill ??? Cholecalciferol (VITAMIN D3 PO) 1 capsule daily ??? [place]-3 Fatty Acids (FISH OIL OMEGA-3 PO) 1 capsule daily ??? Probiotic Product (PROBIOTIC DAILY PO) 1 capsule daily ??? THYROID PO Take by mouth No current facility-administered medications on file prior to visit. Paroxetine and Seasonal Immunization History Administered Date(s) Administered ??? Hep B, Unspecified 03/29/1998, 09/08/1999, 09/27/2000 ??? Influenza TIV (IM) 04/16/2009, 05/11/2011 ??? TD Preservative Free 01/12/2005 ??? Tdap 10/19/2011, 05/14/2014 The following portions of the patient's chart were reviewed in this encounter and updated as appropriate: Tobacco Allergies Meds Med Hx Surg Hx OB Status Fam Hx Review of Systems Constitutional: Negative for activity change, appetite change, weight change, fatigue and fever. HENT: Negative for congestion, postnasal drip, rhinorrhea, sinus pressure and sore throat. Eyes: Negative for pain, redness, change in vision. Respiratory: Negative for cough, wheezing, apnea and shortness of breath. Cardiovascular: Negative for chest pain, heart palpitations, leg swelling. Gastrointestinal: See HPI Skin: Negative for rash, sores, concerning skin lesions. See HPI Objective Physical Exam Blood pressure 102/66, pulse 84, temperature (!) 38.2 ??C (100.8 ??F), temperature source Temporal, resp. rate 16, height 1.696 m (5' 6.77), weight 62.3 kg (137 lb 5.6 oz), last menstrual period 06/19/2019, SpO2 99 %. General Appearance: Alert, cooperative, no distress. Head: Normocephalic, without obvious abnormality. Eyes: PERRL, conjunctiva/corneas clear, EOM's intact, fundi benign, both eyes Ears: Normal TM's and external ear canals, both ears Nose: Nares normal, no drainage Throat: Lips, mucosa, and tongue normal; teeth and gums normal Neck: Supple, symmetrical, trachea midline, no adenopathy; no thyromegaly Back: No tenderness. ROM normal. Lungs: Clear to auscultation bilaterally, respirations unlabored Chest Wall: No tenderness or deformity Heart: Regular rate and rhythm, S1 and S2 normal, no murmur, rub or gallop Breast Exam: No tenderness, masses, or nipple abnormality Abdomen: Soft, nontender, nondistended, no organomegaly. Normoactive bowel sounds. With Valsalva there is no palpable hernia. About the umbilicus there is some separation of the linea alba. Genitalia: Not performed Rectal: Not performed Extremities: Extremities normal, atraumatic, without edema Pulses: 2+ and symmetric all extremities Skin: There is a seborrheic keratosis on her right mid back that is approximately half centimeter indiameter. Lymph nodes: Cervical, supraclavicular, and axillary nodes normal Neurologic: CNII-XII intact, normal strength, sensation and reflexes throughout PHQ 9 = 1 GAD7 = 5. Assessment/Plan Diagnoses and all orders for this visit: Well adult exam Acquired hypothyroidism - TSH; Future - T4, free; Future Flank pain - Urinalysis with reflex microscopic; Future - CBC Branch Off w/Diff; Future - Comprehensive metabolic panel; Future Really her exam is reassuring. Discussed that she does have a mild separation about the umbilicus and likely small separation of the linea alba related to but no palpable hernia. At this point I would monitor. I do not think this is related to her abdominal complaints and I do not know how to connect this to her temperature of 100.8 here today. She does not complain of fever and chills. I think her digestive symptoms have been long-standing. I did explain her that having hypothyroidism could be contributing to some of her intestinal issues and that we should recheck that. She also requests further evaluation and I will get baseline labs and pending those will do further evaluation. There are no preventive care reminders to display for this patient. There are no Patient Instructions on file for this visit. ING SCHEDULER documented in this encounter Plan of Treatment Not on filedocumented as of this encounter Results (ABNORMAL) Comprehensive metabolic panel (07/13/2019 9:26 AM [facility]) Analysis Performed At Patho logist Time Signature Total Protein 6.8 6.3 - 8.2 07/13/2019 [facility] g/dL 1:58 PM [facility] Albumin, Serum 4.0 3.5 - 5.0 07/13/2019 [facility] g/dL 1:12 PM [facility] Total Bilirubin <0.7 0.1 - 1.0 07/13/2019 [facility] mg/dL 1:58 PM [facility] AST 26 8 - 43 U/L 07/13/2019 [facility] 1:58 PM [facility] Alkaline 33 (L) 38 - 128 07/13/2019 [facility] Phosphatase U/L 1:58 PM [facility] ALT (SGPT) 21 0 - 34 U/L 07/13/2019 [facility] 1:58 PM [facility] Sodium 141 135 - 145 07/13/2019 [facility] mEq/L 1:58 PM [facility] Potassium 4.1 3.5 - 5.1 07/13/2019 [facility] mEq/L 1:58 PM [facility] Chloride 101 98 - 107 07/13/2019 [facility] mEq/L 1:58 PM [facility] CO2 29 22 - 29 07/13/2019 [facility] mmol/L 1:12 PM [facility] BUN 15 5 - 25 07/13/2019 [facility] mg/dL 1:58 PM [facility] Creatinine 0.7 0.4 - 1.2 07/13/2019 [facility] mg/dL 1:58 PM [facility] Glucose 83 70 - 100 07/13/2019 [facility] mg/dL 1:58 PM [facility] Calcium, Total,S 9.7 8.4 - 10.2 07/13/2019 [facility] mg/dL 1:58 PM [facility] Fasting? Yes 07/13/2019 [facility] 9:26 AM [facility] Specimen Anatomical Collection Method Collection Time Receive d Time (Source) Location / / Volume Laterality Blood 07/13/2019 9:26 AM 9 NURSING SCHEDULER 12:04 PM [facility] Navya Elena MD LAB BLOOD ORDERABLES Performing Organization Address City/State/ZIP Code Phon e Number [facility] [address] [place] [address] (ABNORMAL) CBC Branch Off w/Diff (07/13/2019 9:26 AM NURSING SCHEDULER) [facility] Method Time Signature WBC 4.8 3.5 - 10.5 07/13/2019 [facility] K/uL 9:49 AM NURSING SCHEDULER LAB RBC 4.98 3.90 - 07/13/2019 [facility] 5.00 M/uL 9:49 AM NURSING SCHEDULER LAB Hemoglobin 15.0 12.0 - 07/13/2019 [facility] 15.5 g/dL 9:49 AM NURSING SCHEDULER LAB Hematocrit 44.7 (H) 35.0 - 07/13/2019 [facility] 44.0 % 9:49 AM NURSING SCHEDULER LAB Platelets 185 150 - 450 07/13/2019 [facility] [place] K/uL 9:49 AM NURSING SCHEDULER LAB MCV 89.8 81.6 - 07/13/2019 [facility] [place] 98.3 fL 9:49 AM NURSING SCHEDULER LAB MCH 30.1 26.0 - 07/13/2019 [facility] [place] 32.0 pg 9:49 AM NURSING SCHEDULER LAB MCHC 33.6 32.0 - 07/13/2019 [facility] [place] 36.0 g/dL 9:49 AM NURSING SCHEDULER LAB RDW 11.9 11.9 - 07/13/2019 [facility] [place] 15.5 % 9:49 AM NURSING SCHEDULER LAB Lymphocytes % 25.2 18.0 - 07/13/2019 [facility] 45.0 % 9:49 AM NURSING SCHEDULER LAB Mid-size Cells 8.6 3.3 - 10.1 07/13/2019 [facility] [place] % 9:49 AM NURSING SCHEDULER LAB Granulocytes/Angelita 66.2 45.8 - 07/13/2019 [facility] trophils 73.7 % 9:49 AM NURSING SCHEDULER LAB Lymphocytes 1.2 0.9 - 2.9 07/13/2019 [facility] Absolute K/uL 9:49 AM NURSING SCHEDULER LAB MIDS Absolute 0.4 0.2 - 0.8 07/13/2019 [facility] K/uL 9:49 AM NURSING SCHEDULER LAB Granulocytes/Angelita 3.2 2.1 - 8.7 07/13/2019 [facility] trophils K/uL 9:49 AM NURSING SCHEDULER LAB Absolute Specimen Anatomical Collection Method Collection Time Receive d Time (Source) Location / / Volume Laterality Blood 07/13/2019 9:26 AM 9 9:26 NURSING SCHEDULER AM NURSING SCHEDULER Navya Elena MD LAB BLOOD ORDERABLES Performing Organization Address City/[facility]/ZIP Code Phon e Number [facility] [address] [place] [address] [place] [address] (ABNORMAL) T4, free (07/13/2019 9:26 AM NURSING SCHEDULER) P athologist Signature Free T4 0.69 (L) 0.78 - 2.19 07/13/2019 [facility] ng/dL 2:01 PM [facility] Comment: The results from this [...] Volume Laterality Blood 07/13/2019 9:26 AM 9 NURSING SCHEDULER 12:04 PM NURSING SCHEDULER Navya Elena MD LAB BLOOD ORDERABLES Performing Organization Address City/[facility]/ZIP Code Phon e Number [facility] [address] [place] [id number] (ABNORMAL) TSH (07/13/2019 9:26 AM NURSING SCHEDULER) Analysis Performed At Patho logist Time Signature TSH, Sensitive 6.32 (H) 0.46 - 07/13/2019 [facility] 4.68 mIU/L 2:01 PM [facility] Comment: The results from [...] Volume Laterality Blood 07/13/2019 9:26 AM 9 NURSING SCHEDULER 12:04 PM NURSING SCHEDULER Navya Elena MD LAB BLOOD ORDERABLES Performing Organization Address City/State/ZIP Code Phon e Number [facility] [address] [place] [address] (ABNORMAL) Urinalysis with reflex microscopic (07/13/2019 9:10 AM NURSING SCHEDULER) [facility] Method Time Signature Type CLEAN CATCH 07/13/2019 [facility] 9:48 AM NURSING SCHEDULER [place] [facility] Color, Urine YELLOW YELLOW 07/13/2019 [facility] 9:48 AM NURSING SCHEDULER [place] [facility] Clarity, CLEAR CLEAR 07/13/2019 [facility] Urine 9:48 AM NURSING SCHEDULER [place] [facility] Glucose, NEGATIVE NEGATIVE 07/13/2019 [facility] mg/dL 9:48 AM NURSING SCHEDULER [place] [facility] Bilirubin, NEGATIVE NEGATIVE 07/13/2019 [facility] Urine 9:48 AM NURSING SCHEDULER [place] [facility] Ketones, NEGATIVE NEGATIVE 07/13/2019 [facility] mg/dL 9:48 AM NURSING SCHEDULER [place] [facility] Specific 1.020 1.000 07/13/2019 [facility] [place], ->=1.030 9:48 AM NURSING SCHEDULER [place] [facility] LAB Blood, Urine NEGATIVE NEGATIVE 07/13/2019 [facility] 9:48 AM NURSING SCHEDULER [place] [facility] pH, Urine 8.5 (A) 5.0 - 7.0 07/13/2019 [facility] 9:48 AM NURSING SCHEDULER [place] [facility] Protein, NEGATIVE NEGATIVE-TRA 07/13/2019 [facility] U[facility] CE mg/dL 9:48 AM NURSING SCHEDULER [place] [facility] Urobilinogen, 0.2 0.2 - 1.0 07/13/2019 [facility] Urine E.U./dL 9:48 AM NURSING SCHEDULER [place] [facility] Nitrite, NEGATIVE NEGATIVE 07/13/2019 [facility] Urine 9:48 AM NURSING SCHEDULER [place] [facility] Leukocytes, NEGATIVE NEGATIVE 07/13/2019 [facility] Urine 9:48 AM NURSING SCHEDULER [place] [facility] Specimen Anatomical Collection Method Collection Time Receive d Time (Source) Location / / Volume Laterality Urine (Urine, 07/13/2019 9:10 AM 07/13/20 19 9:10 Clean Catch) NURSING SCHEDULER AM NURSING SCHEDULER Navya Elena MD LAB URINE ORDERABLES Performing Organization Address City/State/ZIP Code Phon e Number [facility] [address] [facility] [place] [address] [place] [address] documented in this encounter Visit Diagnoses Diagnosis Well adult exam - Primary Routine general medical examination at a health care facility Acquired hypothyroidism Unspecified hypothyroidism Flank pain Abdominal pain, unspecified site documented in this encounter Care Teams Franchise Broker Relationship Specialty Start Date End Date Navya Elena MD PCP - General Family Medicine 07/13/19 documented as of this encounter
--- OUTSIDE RECORDS SUMMARY | 2022-05-04 10:33 | XMS_ITS | Encounter Summary ---
:1980 Author Organization [facility] Address [address] [place] [address] Care Team Providers Name Role Phone Navya Elena MD Primary Care Provider Unavailable Reason for Visit Reason Onset Date Comments temp/test results 07/14/2019 Encounter Details Date Type Department Care Team Description 07/14/2019 Telephone Navya Hanson, temp/test results [address] [place] [address] Social History Tobacco Use Types Packs/Day Years [...] this encounter Miscellaneous Notes Telephone Encounter - Navya Elena MD - 07/17/2019 8:12 AM CST See note attached to labs. K SHADER Telephone Encounter - Berkley Otero - 07/14/2019 9:31 AM CST Pt has a temp again today and is also wondering about lab results K SHADER documented in this encounter Plan of Treatment Not on filedocumented as of this encounter Visit Diagnoses Not on filedocumented in this encounter Care Teams Senior Brand Manager Relationship Specialty Start Date End Date Navya Elena MD PCP - General Family Medicine 07/13/19 documented as of this encounter
--- OUTSIDE RECORDS SUMMARY | 2022-05-04 10:33 | XMS_ITS | Encounter Summary ---
:1980 Author Organization [facility] Address [address] [place] [address] Care Team Providers Name Role Phone Navya Elena MD Primary Care Provider Unavailable Reason for Referral Consultation (Routine) - Closed Specialty Diagnoses / Procedures Referred By Contact Refer red To Contact Orthopedic Surgery Diagnoses Other fracture of fourth metacarpal bone, right hand, initial encounter for closed fracture Navya Elena MD [address] [facility] [place] [address] Referral ID Status Reason Start Date Expiration Date Visits V isits Requested Authorized [id number] Closed Specialty 09/04/2019 03/02/2020 1 1 Services Required Scheduling Instructions Ongoing pain and swelling of right 4th m etacarpal fracture. NG SERVICE INSPECTOR Reason for Visit Reason Comments Hand Injury follow up on right hand Encounter Details Date Type Department Care Team Description 09/04/2019 Office Visit Navya Hanson Other fracture of [address] [facility] MD Gianna [place] [address] bone, right hand, initial encount er for closed fracture (Primary Dx) Social History Tobacco Use Types Packs/Day [...] Sign Reading Time Taken Comments Blood Pressure 114/78 09/04/2019 10:51 AM DINING SERVICE INSPECTOR Pulse 80 09/04/2019 10:51 AM DINING SERVICE INSPECTOR Temperature 37.1 ??C (98.8 ??F) 09/04/2019 10:51 AM DINING SERVICE INSPECTOR Respiratory Rate 14 09/04/2019 10:51 AM DINING SERVICE INSPECTOR Oxygen Saturation - - Inhaled Oxygen Concentration - - Weight 63.1 kg (139 lb 1.8 oz) 09/04/2019 10:51 AM DINING SERVICE INSPECTOR Height - - Body Mass Index 21.99 08/16/2019 3:34 PM DINING SERVICE INSPECTOR documented in this encounter Progress Notes Navya Elena MD - 09/04/2019 10:40 AM CST Estab Patient Visit Subjective Patient ID: Hattie Brenner is a 39 y.o. female. Chief Complaint Patient presents with ??? Hand Injury follow up on right hand HPI Patient is a [id number] 39-year-old female who presents for follow-up of a right hand injury with a resulting fourth metacarpal fracture that occurred on August 11, 2019. She was seen initially in clinic on the and had an x- ray at that time that showed an oblique nondisplaced fracture at the distal metadiaphysis of the fourth metacarpal. She was placed in an ulnar gutter splint which she has been wearing consistently. She was seen 2 days after her first visit, on the and a different ulnar clutter splint was placed which she has been wearing and says that she is not had any other significant injury. She continues to have a fair amount of swelling, intermittent finger numbness and tingling that is not significantly improved from her initial presentation. Current Outpatient Medications on File Prior to Visit Medication Sig Dispense Refill ??? Cholecalciferol (VITAMIN D3 PO) 1 capsule daily ??? [place]-3 Fatty Acids (FISH OIL OMEGA-3 PO) 1 capsule daily ??? Probiotic Product (PROBIOTIC DAILY PO) 1 capsule daily ??? THYROID PO Take by mouth No current facility-administered medications on file prior to visit. Paroxetine and Seasonal The following portions of the patient's chart were reviewed in this encounter and updated as appropriate: Allergies Meds Review of Systems See HPI. Objective Physical Exam Blood pressure 114/78, pulse 80, temperature 37.1 ??C (98.8 ??F), temperature source Temporal, resp.rate 14, weight 63.1 kg (139 lb 1.8 oz). Generally patient is well-appearing not in acute distress. On the dorsal aspect and palmar surface of her right hand there is swelling and bruising and patienthas tenderness to palpation over the fourth metacarpal and to a lesser extent along the fifth metacarpal. hand is cool to touch. She has some decreased sensation to light touch of her fingers and intact capillary refill. Intact radial pulse. Assessment/Plan Diagnoses and all orders for this visit: Other fracture of fourth metacarpal bone, right hand, initial encounter for closed fracture - X-ray hand 3+ views right; Future - Ambulatory Referral to Orthopedics I reviewed the x-ray and noted the fracture at the right fourth metacarpal and contacted orthopedic department. I spoke with first an parent trainer followed by nurse practitioner/physician assistantfollowed by the orthopedic surgeon who informed me that the patient should be seen in orthopedic clinic. The orthopedic surgeon suggested that the fracture may need to be reduced and casted. I placed a referral and I conveyed this information to the patient and told her that they would be contacting her today about an appointment this week. The x-ray was read as stable alignment. Note that the initial x-ray described a nondisplaced fracture. Patient was somewhat frustrated by no interval improvement in her symptoms despite that the x-ray findings. There are no Patient Instructions on file for this visit. NG SERVICE INSPECTOR documented in this encounter Plan of Treatment Scheduled Referrals Name Type Priority Associated Order Schedule Diagnoses Ambulatory Referral Outpatient Referral Routine Other fracture of Ordered: to Orthopedics fourth metacarpal 09/04/19 20 bone, right hand, initial encounter for closed fracture documented as of this encounter Procedures Procedure Name Priority Date/Time Associated Diagnosis Comme nts XR HAND 3+ VIEWS Routine 09/04/2019 11:12 AM Other fracture of Results for this RIGHT DINING SERVICE INSPECTOR fourth metacarpal procedure are in bone, right hand, the result s initial encounter section. for closed fracture documented in this encounter Results X-ray hand 3+ views right (09/04/2019 11:12 AM DINING SERVICE INSPECTOR) Anatomical Region Laterality Modality Upper Extremities, Hand Right Radiographic Nery ging Specimen (Source) Anatomical Collection Method Collection Time Re ceived Time Location / / Volume Laterality 09/04/2019 11:12 AM DINING SERVICE INSPECTOR Impressions 09/04/2019 1:47 PM DINING SERVICE INSPECTOR IMPRESSION: HAND COMPLETE RIGHT (3 VIEWS) Alignment is stable. ??There has been mi ld increase in sclerosis at a previously seen oblique fracture at the distal metadiaphysis of the 4th metacarpal. ??A previously suggested obl ique linear lucency at the distal metaphysis of the 5th metacarpal is not demonstrated on the current exam. ?? No additional fracture. Narrative 09/04/2019 1:47 PM DINING SERVICE INSPECTOR INDICATION: Fracture, hand COMPARISON: Right hand radiographs August 14, 2019 Procedure Note Ling Pabon MD - 09/04/2019 INDICATION: Fracture, hand COMPARISON: Right hand radiographs August 14, 2019 IMPRESSION: HAND COMPLETE RIGHT (3 VIEWS) Alignment is stable. There has been mild increase in sclerosis at a previously seen oblique fracture at the distal metadiaphysis of the 4th metacarpal. A previously suggested obliq ue linear lucency at the distal metaphysis of the 5th metacarpal is not demonstrated on the current exam. No additional fracture. Navya Elena MD IMG XR PROCEDURES documented in this encounter Visit Diagnoses Diagnosis Other fracture of fourth metacarpal bone , right hand, initial encounter for closed fracture - Primary documented in this encounter Care Teams Manager Leadership Development Relationship Specialty Start Date End Date Navya Elena MD PCP - General Family Medicine 07/13/19 documented as of this encounter
--- OUTSIDE RECORDS SUMMARY | 2022-05-04 10:33 | XMS_ITS | Encounter Summary ---
:1980 Author Organization [facility] Address [address] [place] [address] Care Team Providers Name Role Phone Navya Elena MD Primary Care Provider Unavailable Encounter Details Date Type Department Care Team Description 09/13/2019 Hospital Encounter [facility] Headley ra, [facility] [address] [facility] [address] [place] [address] [place] [address] (Wo rk) Social History Tobacco Use Types [...] Sig Dispensed Refills Start Date End Date Cholecalciferol (VITAMIN D3 Take 1 capsule by 0 PO) mouth per week [id number] [place]-3 Fatty Acids (FISH 1 capsule daily 0 OIL OMEGA-3 PO) Probiotic Product (PROBIOTIC 1 capsule 1 (one) 0 DAILY PO) time each day if needed THYROID POIndications: Take 1 capsule by 0 Thyroid Care and Thyroid mouth Thyroid care maintenance Supplements With iodine+L tyrosine. documented as of this encounter Plan of Treatment Not on filedocumented as of this encounter Procedures Procedure Name Priority Date/Time Associated Diagnosis Comme nts XR HAND 3+ VIEWS Today 09/13/2019 2:10 PM Closed displaced R esults for this RIGHT GREENSKEEPER HEAD fracture of shaft of procedu re are in fourth metacarpal the result s bone of right hand, section. initial encounter documented in this encounter Results X-ray Hand 3+ Views Right (09/13/2019 2:10 PM GREENSKEEPER HEAD) Anatomical Region Laterality Modality Upper Extremities, Hand Right Radiographic Nery ging Specimen (Source) Anatomical Collection Method Collection Time Re ceived Time Location / / Volume Laterality 09/13/2019 2:10 PM GREENSKEEPER HEAD Impressions 09/13/2019 2:49 PM GREENSKEEPER HEAD IMPRESSION: HAND COMPLETE RIGHT (3 VIEWS) Alignment is similar to the prior exam. ??A previously seen oblique fracture at the distal metadiaphysis of the 4th metacarpal appears minimally more lucent. ??Soft tissue swe lling is demonstrated dorsally over metacarpals. Narrative 09/13/2019 2:49 PM GREENSKEEPER HEAD INDICATION: XOP Right hand COMPARISON: Right hand [...] PROCEDURES documented in this encounter Visit Diagnoses Not on filedocumented in this encounter Care Teams Trigonometry Tutor Relationship Specialty Start Date End Date Navya Elena MD PCP - General Family Medicine 07/13/19 documented as of this encounter
--- OUTSIDE RECORDS SUMMARY | 2022-05-04 10:33 | XMS_ITS | Encounter Summary ---
:1980 Author Organization [facility] Address [address] [place] [address] Care Team Providers Name Role Phone Navya Elena MD Primary Care Provider Unavailable Reason for Visit Reason Comments check hand Encounter Details Date Type Department Care Team Description 08/16/2019 Office Visit Navya Hanson Other fracture of [address] MD Gianna fourth metacarpal [place] [address] bone, right hand, initial encount er for [...] Sign Reading Time Taken Comments Blood Pressure 100/60 08/16/2019 3:34 PM GARMENT PRESSER Pulse 74 08/16/2019 3:34 PM GARMENT PRESSER Temperature 37.3 ??C (99.2 ??F) 08/16/2019 3:34 PM GARMENT PRESSER Respiratory Rate 16 08/16/2019 3:34 PM GARMENT PRESSER Oxygen Saturation 100% 08/16/2019 3:34 PM GARMENT PRESSER Inhaled Oxygen Concentration - - Weight 62.6 kg (138 lb) 08/16/2019 3:34 PM GARMENT PRESSER Height 169.4 cm (5' 6.69) 08/16/2019 3:34 PM GARMENT PRESSER Body Mass Index 21.81 08/16/2019 3:34 PM GARMENT PRESSER documented in this encounter Progress Notes Navya Elena MD - 08/16/2019 3:00 PM CST I am requesting no charge for this visit. 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 We refitted the ulnar gutter splint with one that offered more coverage and padding. She will follow-up as needed. She also plans to follow-up 4 weeks afterthe fracture for recheck. ENT PRESSER documented in this encounter Plan of Treatment Not on filedocumented as of this encounter Visit Diagnoses Diagnosis Other fracture of fourth metacarpal bone , right hand, initial encounter for closed fracture - Primary documented in this encounter Care Teams Cook Helper Relationship Specialty Start Date End Date Navya Elena MD PCP - General Family Medicine 07/13/19 documented as of this encounter
--- OUTSIDE RECORDS SUMMARY | 2022-05-04 10:33 | XMS_ITS | Encounter Summary ---
:1980 Author Organization [facility] Address [address] [place] [address] Care Team Providers Name Role Phone Ed Galvan MD Primary Care Provider Unavailable Reason for Visit Reason Comments biometric work screening Gynecologic Exam Encounter Details Date Type Department Care Team Description 05/25/2018 Office Visit Agatha Pérez, Annual physical exam (Primar y Dx); [address] DNP, BODY COMPONENT ENGINEER, VENEER STOCK LAYER Vaginal leukorrhea; [place] [address] Hypothyroidism, unspecified type; [phone] SHANDA Carmichael Screening for h yperlipidemia; [id number] Screening for diabetes mellitus; [phone] Lower abdominal pain; (Work) Dyspareunia; Screening for c ervical cancer Social History Tobacco Use Types Packs/Day Years [...] Sign Reading Time Taken Comments Blood Pressure 114/70 05/25/2018 9:12 AM CDT Pulse 76 05/25/2018 9:12 AM CDT Temperature 37.3 ??C (99.1 ??F) 05/25/2018 9:12 AM CDT Respiratory Rate 16 05/25/2018 9:12 AM CDT Oxygen Saturation 99% 05/25/2018 9:12 AM CDT Inhaled Oxygen Concentration - - Weight 60.3 kg (132 lb 15 oz) 05/25/2018 9:12 AM CDT Height 171.4 cm (5' 7.48) 05/25/2018 9:12 AM CDT Body Mass Index 20.53 05/25/2018 9:12 AM CDT documented in this encounter Progress Notes Agatha Palomo, DNP, BODY COMPONENT ENGINEER, VENEER STOCK LAYER - 05/25/2018 9:00 AM CDT Images from the original note were not included. Subjective Patient ID: Hattie Brenner is a 37 y.o. female. Chief Complaint Patient presents with ??? biometric work screening ??? Gynecologic Exam HPI Hattie presents to the clinic today for her annual exam. She has a history of hypothyroidism. She waspreviously taking Mazama Thyroid. She says that she has not been taking the armour thyroid for abouta year and a half since she was struggling with some anxiety and depression. She has been seeing a homeopathic doctor who advised a thyroid care supplement and thyroid maintenance. These do not containany thyroid hormones, just iodine and L tyrosine. She is feeling better in the last couple of monthssince she has changed her diet to be gluten free, diary free, and egg free. She would like her thyroid rechecked today since she is feeling much better. At her homeopathic appointment she had a thermographic test completed. She was found to have higher heat/energy around her thyroid and abdominal area. She was suggested to have a CRP done to further evaluate for any inflammation. I discussed the CRP test and what we use it for. She has had some intermittent abdominal pain. No diarrhea. She has had intermittent blood in her stool but correlates this with longstanding hemorrhoids. She denies significant diarrhea. Her periods are regular, monthly, without significant pain or heavy bleeding. She has been monogamous for 16 years and has no concerns for STD's. Her had a vasectomy. She has experienced some pain with sex recently. She is unsure when the pain occurs during sex. She has had some increased vaginal discharge intermittently. Denies vaginal odor or itching. She denies urinary complaints of pain, urgency, or frequency with urination. She eats very healthfully, eating mostly vegetables, lentils, and fruits. She exercises daily by going on a walk and stretching. She says her mood is good and denies any anxiety or depression symptoms. The following portions of the patient's chart were reviewed in this encounter and updated as appropriate: Tobacco Allergies Meds Med Hx Surg Hx Fam Hx Soc Hx Review of Systems Constitutional: Negative for activity change, appetite change, diaphoresis, fatigue and unexpected weight change. HENT: Negative for congestion, ear pain, postnasal drip, sinus pain and sore throat. Eyes: Negative for pain and visual disturbance. Respiratory: Negative. Cardiovascular: Negative for chest pain, palpitations and leg swelling. Gastrointestinal: Positive for abdominal pain (occasional) and blood in stool (r/t hemorrhoids). Negative for abdominal distention, constipation, diarrhea, nausea and vomiting. Endocrine: Negative for cold intolerance and heat intolerance. Genitourinary: Per above Musculoskeletal: Negative. Skin: Negative. Neurological: Negative. Hematological: Negative. Psychiatric/Behavioral: Negative. Objective Current Outpatient Medications Medication Sig Dispense Refill ??? Cholecalciferol (VITAMIN D3 PO) 1 capsule daily ??? [place]-3 Fatty Acids (FISH OIL OMEGA-3 PO) 1 capsule daily ??? Probiotic Product (PROBIOTIC DAILY PO) 1 capsule daily ??? THYROID PO Take by mouth No current facility-administered medications for this visit. Vitals: 05/25/18 0912 BP: 114/70 Pulse: 76 Resp: 16 Temp: 37.3 ??C (99.1 ??F) SpO2: 99% Paroxetine Patient declined agile test lead for sensitive parts of exam. Physical Exam Constitutional: She appears well-developed and well-nourished. HENT: Head: Normocephalic. Right Ear: External ear normal. Left Ear: External ear normal. Nose: Nose normal. Mouth/Throat: Oropharynx is clear and moist. Eyes: Conjunctivae are normal. Pupils are equal, round, and reactive to light. Neck: Normal range of motion. No thyromegaly present. Cardiovascular: Normal rate, regular rhythm and normal heart sounds. No murmur heard. Pulmonary/Chest: Effort normal and breath sounds normal. Right breast exhibits no inverted nipple, no mass, no nipple discharge, no skin change and no tenderness. Left breast exhibits no inverted nipple, no mass, no nipple discharge, no skin change and no tenderness. Abdominal: Soft. Bowel sounds are normal. She exhibits no mass. There is no tenderness. There is no rebound and no guarding. Genitourinary: Vagina normal and uterus normal. Pelvic exam was performed with patient supine. Thereis no rash, tenderness or lesion on the right labia. There is no tenderness or lesion on the left labia. Cervix exhibits friability. Cervix exhibits no motion tenderness. Right adnexum displays no tenderness. Left adnexum displays no tenderness. No bleeding in the vagina. No vaginal discharge found. Genitourinary Comments: Mucousy green-yellow discharge. No odor. Cervix is parous. Musculoskeletal: Normal range of motion. She exhibits no edema. Lymphadenopathy: She has no cervical adenopathy. Neurological: She is alert. No sensory deficit. Coordination normal. Skin: Skin is warm and dry. No rash noted. Psychiatric: She has a normal mood and affect. Her behavior is normal. Nursing note and vitals reviewed. Assessment/Plan Diagnoses and all orders for this visit: Annual physical exam Vaginal leukorrhea - Wet Mount with Rapid Trichomonas Hypothyroidism, unspecified type - TSH; Future - T4, free; Future Screening for hyperlipidemia - Lipid panel; Future Screening for diabetes mellitus - HemoCue glucose; Future Lower abdominal pain - C-reactive protein; Future Dyspareunia - Pap smear - HPV High Risk DNA Detection with Genotyping Screening for cervical cancer - Pap smear - HPV High Risk DNA Detection with Genotyping Immunizations: declined STD screening: declined -Do not smoke. Limit alcohol to 1 serving per day. Exercise at least 5 days per week for 30 minutes at a time. Wear your seatbelt. Apply sunscreen to exposed skin, SPF 15 when outside. -Patient requested glucose and cholesterol testing for insurance form today. -Considering dyspareunia and large cyst with cervical friability I did check HPV and Pap smear today. -Patient's homeopathic doctor requested CRP lab due to thermographic testing results. I discussed this in depth with patient today and explained to her that this is an overall evaluation for inflammation. Considering she has very vague symptoms it may be difficult to pinpoint what would be causing an elevation in CRP. However if this is negative it may offer some reassurance. -I did advise her to make a follow-up appointment regarding abdominal pain considering there is a limitation in time her annual exam today. -We will recheck her thyroid today since she is feeling better with her new diet and supplements. I discussed treatment of hypothyroidism in depth with her and explained the pathophysiology of it. If her thyroid levels are still elevated I would suggest treatment since she has been symptomatic. I would advise caution with supplements since they are not regulated by the FDA. If she prefers to continuesupplements it would be a good idea to check her thyroid every 6 months. Questions answered, patient verbalizes understanding and is in agreement with the plan of care. Electronically signed by Agatha Palomo, DNP, BODY COMPONENT ENGINEER, VENEER STOCK LAYER at 05/25/2018 1:25 PM CDT documented in this encounter Plan of Treatment Not on filedocumented as of this encounter Procedures Procedure Name Priority Date/Time Associated Comments Diagnosis HPV HIGH RISK DNA Routine 05/25/2018 10:38 Dyspareunia Results for this DETECTION WITH AM CDT Screening for procedure ar e in GENOTYPING cervical cancer the results section. PAP TEST Routine 05/25/2018 10:38 Dyspareunia Results for this AM CDT Screening for procedure are in cervical cancer the results section. WET MOUNT WITH RAPID Routine 05/25/2018 10:13 Vaginal leukorrh ea Results for this TRICHOMONAS AM CDT procedure are i n the results section. documented in this encounter Results (ABNORMAL) Lipid panel (05/25/2018 10:46 AM CDT) athologist Signature Cholesterol 67 0 - 199 05/26/2018 [facility] mg/dL 1:42 PM CDT [facility] Comment: Recommended by National Cholesterol Education Program (ATP III) -------- Cholesterol Ranges -------- <200 ? Desirable 200-239 ? Borderline high >=240 ? High Triglycerides 49 0 - 149 mg/dL 05/26/2018 1:42 PM CDT [facility] Comment: -------- TRIG Ranges -------- <150 ?Normal 150-199 ? Borderline high 200-499 ? High >=500 ? Very high HDL 28 (A) 40 - 60 mg/dL 05/26/2018 1:42 PM CDT [facility] Comment: -------- HDL Ranges -------- <40 ?Low 40-59 ?Normal >=60 ? Optimal LDL Calculated 29 0 - 99 mg/dL 05/26/2018 1:42 PM CDT [facility] Comment: -------- LDL Ranges -------- <100 ? Optimal 100-129 ?Near optimal/above op timal 130-159 ?Borderline high 160-189 ?High >=190 ?Very high Fasting? Yes 05/25/2018 10:47 AM CDT [facility] Specimen Anatomical Collection Method Collection Time Receive d Time (Source) Location / / Volume Laterality Blood (Blood, 05/25/2018 10:46 05/26/2018 1:04 Venous) AM CDT PM CDT Agatha Shah DNP, BODY COMPONENT ENGINEER, VENEER STOCK LAYER LAB BLOOD ORDERABLES Performing Organization Address City/State/ZIP Code Phon e Number [facility] [address] [place] [address] (ABNORMAL) HemoCue glucose (05/25/2018 10:46 AM CDT) P athologist Signature Glucose, Bld 106 (H) 70 - 100 05/25/2018 [facility] mg/dL 11:19 AM CDT LAB Comment: . Specimen Anatomical Collection Method Collection Time Receive d Time (Source) Location / / Volume Laterality Blood 05/25/2018 10:46 05/25/2018 AM CDT 10:46 AM CDT Agahta Shah DNP, BODY COMPONENT ENGINEER, VENEER STOCK LAYER LAB BLOOD ORDERABLES Performing Organization Address City/State/ZIP Code Phon e Number [facility] [address] [place] [address] [place] [address] C-reactive protein (05/25/2018 10:46 AM CDT) P athologist Signature CRP <5.0 0.0 - 9.9 05/26/2018 [facility] mg/L 2:03 PM CDT [facility] Comment: . Specimen Anatomical Collection Method Collection Time Receive d Time (Source) Location / / Volume Laterality Blood 05/25/2018 10:46 05/26/2018 1:13 AM CDT PM CDT Agatha Shah DNP, BODY COMPONENT ENGINEER, VENEER STOCK LAYER LAB BLOOD ORDERABLES Performing Organization Address [facility] e Number [facility] [address] [place] [phone] (ABNORMAL) T4, free (05/25/2018 10:46 AM CDT) P athologist Signature Free T4 0.49 (L) 0.78 [...] AM CDT PM CDT Agatha Shah DNP, BODY COMPONENT ENGINEER, VENEER STOCK LAYER LAB BLOOD ORDERABLES Performing Organization Address [facility] Phon e Number [facility] [address] [place] [address] (ABNORMAL) TSH (05/25/2018 10:46 AM CDT) Patholo gist Method Time Signature TSH, Sensitive 11.60 (H) 0.46 - 05/26/2018 [facility] 4.68 mIU/L 2:33 PM CDT [facility] Comment: The results from [...] AM CDT PM CDT Agatha Shah DNP, BODY COMPONENT ENGINEER, VENEER STOCK LAYER LAB BLOOD ORDERABLES Performing Organization Address City/State/ZIP Code Phon e Number [facility] [address] [place] [phone] HPV High Risk DNA Detection with Genotyping (05/25/2018 10:38 AM CDT) [facility] Method Time Signature Source Endocervical 05/31/2018 [facility] 10:09 PM LABORATORIES CDT HPV Type 16 Negative Negative 05/31/2018 [facility] 10:09 PM LABORATORIES CDT HPV Type 18 Negative Negative 05/31/2018 [facility] 10:09 PM LABORATORIES CDT HPV non-Type Negative Negative 05/31/2018 [facility] 16 or 18 10:09 PM LABORATORIES CDT Comment: The following Other High Risk HPV types were not detected: 31, 33, 35, 39, 45, 51, 52, 56, 58, 59, 66, and 68 ADDITIONAL INFORMATIO N This test has been modified from the man ufacturer's instructions. Its performance characteri stics were determined by [facility] in a manner co nsistent with CLIA requirements. This test has not been kelly ared or approved by the U.S. Food and Drug Administration. Test Performed by: [facility] [address] [place] [address] Specimen (Source) Anatomical Collection Method Collection Time Re ceived Time Location / / Volume Laterality Pap collection 05/25/2018 10:38 8 1:32 bottle AM CDT PM CDT Agatha Shah DNP, BODY COMPONENT ENGINEER, VENEER STOCK LAYER LAB CYTOLOGY ORDERABLES Performing Organization Address City/State/ZIP Code Phon e Number [facility] see result attachment for specific address Pap smear (05/25/2018 10:38 AM CDT) Specimen (Source) Anatomical Collection Method Collection Time Re ceived Time Location / / Volume Laterality Sure Path PAP, 05/25/2018 10:38 8 1:34 diagnostic AM CDT PM CDT Narrative [facility] - 05/10 9:56 AM CDT ? [facility] ? [address] ?[place] [address] ? Patient: ?HATTIE BRENNER ?Procedure: ? 05/25/2018 10:38 /Age/Sex: ??1980, 38 Y, F ? Received: ?05/26/2018 13:34 ?Accession #: ?? [id number] Billing: ?[id number] ?Patient Location: [facility] ?OFFICE Ordered by: ?? AGATHA PALOMO DNP, BODY COMPONENT ENGINEER, VENEER STOCK LAYER ?Attending: ? AGATHA PALOMO DNP, ? BODY COMPONENT ENGINEER, VENEER STOCK LAYER ? MDS RN CYTOLOGY FINAL REPORT SPECIMEN: (A) SURE PATH PAP, DIAGNOSTIC SPECIMEN DESCRIPTION: Cervical Received cloudy specimen in SurePath via l. CLINICAL INFORMATION: LMP: 05/08/2018 ?? Prev.normal: 2016 ??SPECIMEN ADEQUACY: Satisfactory for Evaluation. ??Endocervi gautam cells/transformation zone component present. GENERAL CATEGORIZATION: Negative for Intraepithelial Lesion or M alignancy INTERPRETATION/RESULTS: Inflammation present PAP Test Disclaimer Cervical cytology is a screening test pr imarily for squamous cancer and its precursors and has associated false-nega tive and false-positive results. Regular sampling and follow-up of unexplained cl inical signs and symptoms are recommended to minimize the impact of false negative and false positive results. Screened By: Signed By: YASMIN ARAUZ(ASCP) <Sign Out Dr. Gutierrez> Reported: ??06/01/2018 ? Page 1 of 1 Agatha Shah DNP, BODY COMPONENT ENGINEER, VENEER STOCK LAYER LAB CYTOLOGY ORDERABLES Performing Organization Address City/State/ZIP Code Phon e Number [facility] [address] [place] [address] (ABNORMAL) Wet Mount with Rapid Trichomonas (05/25/2018 10:13 AM CDT) [facility] Method Time Signature Rapid NEGATIVE Negative 05/25/2018 [facility] Trichomonas 11:18 AM LAB Test CDT Yeast, Wet Prep NEGATIVE Negative 05/26/2018 [place] 1:40 PM [facility] Clue Cells, Wet NONE SEEN None Seen 05/26/2018 [place] Prep /hpf 1:40 PM [facility] WBC, Wet Prep MODERATE (A) None Seen 05/26/2018 [facility] /hpf 1:40 PM [facility] Specimen Anatomical Collection Method Collection Time Receive d Time (Source) Location / / Volume Laterality Swab 05/25/2018 10:13 05/25/2018 AM CDT 10:56 AM CDT Agatha Shah DNP, BODY COMPONENT ENGINEER, VENEER STOCK LAYER LAB BODY FLUIDS AND STOO LS ORDERABLES Performing Organization Address City/State/ZIP Code Phon e Number [facility] [address] [place] [address] LABORATORY [facility] [address] [place] [address] [place] [address] documented in this encounter Visit Diagnoses Diagnosis Annual physical exam - Primary Routine general medical examination at a health care facility Vaginal leukorrhea Hypothyroidism, unspecified type Screening for hyperlipidemia Screening for lipoid disorders Screening for diabetes mellitus Lower abdominal pain Abdominal pain, other specified site Dyspareunia Screening for cervical cancer Screening for malignant neoplasm of the cervix documented in this encounter Care Teams Food Counselor Relationship Specialty Start Date End Date Ed Galvan MD PCP - General 03/15/18 07/12/19 documented as of this encounter
--- OUTSIDE RECORDS SUMMARY | 2022-05-04 10:33 | XMS_ITS | Encounter Summary ---
:1980 Author Organization [facility] Address [address] [place] [address] Care Team Providers Name Role Phone Unavailable Primary Care Provider Unavailable Encounter Details Date Type Department Care Team Description 11/30/2016 Hospital Encounter [facility] Radiolo gy Ed Galvan MD Headache [address] [place] [address] Social History Tobacco Use Types [...] Priority Date/Time Associated Diagnosis Comme nts CT HEAD WO CONTRAST Routine 11/30/2016 3:17 PM Re sults for this CDT procedure are i n the results section. documented in this encounter Results CT head wo IV contrast (11/30/2016 3:17 PM CDT) Anatomical Region Laterality Modality Head and Neck Computed Tomography Specimen (Source) Anatomical Collection Method Collection Time Re ceived Time Location / / Volume Laterality 11/30/2016 3:17 PM CDT Narrative 11/30/2016 3:23 PM CDT CLINICAL HISTORY Headaches. COMPARISON None FINDINGS CT HEAD WITHOUT CONTRAST No infarct, hemorrhage, mass, shift of t he midline structures or hydrocephalus. ??Visualized portions of paranasal sinuses and mastoid air cells are clear. ??The exam is other bond unremarkable. IMPRESSION Unremarkable exam. ?? Procedure Note Kolby Salmeron MD - 05/01/2018Formattin g of this note might be different from the original. CLINICAL HISTORY Headaches. COMPARISON None FINDINGS CT HEAD WITHOUT CONTRAST No infarct, hemorrhage, mass, shift of t he midline structures or hydrocephalus. Visualized portions of pa ranasal sinuses and mastoid air cells are clear. The exam is otherwi se unremarkable. IMPRESSION Unremarkable exam. Ed Galvan MD IMG CT PROCEDURES documented in this encounter Visit Diagnoses Diagnosis Headache documented in this encounter
--- OUTSIDE RECORDS SUMMARY | 2022-05-04 10:33 | XMS_ITS | Encounter Summary ---
:1980 Author Organization [employer] Address [address] [place] [address] Care Team Providers Name Role Phone Navya Elena MD Primary Care Provider Unavailable Reason for Visit Reason Comments right hand injury DOI 08/12/2019 Encounter Details Date Type Department Care Team Description 08/14/2019 Office Visit Navya Hanson Other fracture of fourth met acarpal bone, right hand, initial encounter for closed fracture (Primary Dx); [address] [facility] D[facility] Katz MD Hand injury, right, initial encounter [place] [id number] Social History Tobacco Use Types Packs/Day Years [...] Sign Reading Time Taken Comments Blood Pressure 116/70 08/14/2019 10:45 AM HOSPITAL SOCIAL WORKER Pulse 84 08/14/2019 10:45 AM HOSPITAL SOCIAL WORKER Temperature 37.6 ??C (99.7 ??F) 08/14/2019 10:45 AM HOSPITAL SOCIAL WORKER Respiratory Rate 16 08/14/2019 10:45 AM HOSPITAL SOCIAL WORKER Oxygen Saturation 99% 08/14/2019 10:45 AM HOSPITAL SOCIAL WORKER Inhaled Oxygen Concentration - - Weight 62.9 kg (138 lb 10.7 oz) 08/14/2019 10:45 AM HOSPITAL SOCIAL WORKER Height 169.4 cm (5' 6.7) 08/14/2019 10:45 AM HOSPITAL SOCIAL WORKER Body Mass Index 21.91 08/14/2019 10:45 AM HOSPITAL SOCIAL WORKER documented in this encounter Patient Instructions Patient InstructionsFrances Gianna Elena MD - 08/14/2019 11:40 AM CST Images from the original note were not included. Patient Education Metacarpal Fracture A metacarpal fracture is a break (fracture) of a bone in the hand. Metacarpals are the bones that gofrom your knuckles to your wrist. You have five metacarpal bones in each hand. Depending on the break, your break may be treated with only a cast or a splint. Or, you may need surgery. Follow these instructions at home: If you have a cast: ?? Do not stick anything inside the cast to scratch your skin. ?? Check the skin around the cast every day. Tell your doctor about any concerns. You may put lotionon dry skin around the edges of the cast. Do not put lotion on the skin under the cast. If you have a splint: ?? Wear it as told by your doctor. Remove it only as told by your doctor. ?? Loosen the splint if your fingers get numb and tingle, or if they turn cold and blue. Bathing ?? Cover the cast or splint with a watertight plastic bag to protect it from water while you take a bath or a shower. Do not let the cast or splint get wet. Managing pain, stiffness, and swelling ?? If directed, put ice on the injured area (if you have a splint, not a cast): ? Put ice in a plastic bag. ? Place a towel between your skin and the bag. ? Leave the ice on for 20 minutes, 2-3 times a day. ?? Move your fingers often. This helps with stiffness and swelling. ?? Raise the injured area above the level of your heart while you are sitting or lying down. Driving ?? Do not drive or use heavy machinery while taking pain medicine. ?? Do not drive while wearing a cast or splint on a hand that you use for driving. Activity ?? Return to your normal activities as told by your doctor. Ask your doctor what activities are safefor you. General instructions ?? Do not put pressure on any part of the cast or splint until it is fully hardened. This may take several hours. ?? Keep the cast or splint clean and dry. ?? Do not use any tobacco products. These include cigarettes, chewing tobacco, or electronic cigarettes. Tobacco can delay bone healing. If you need help quitting, ask your doctor. ?? Take medicines only as told by your doctor. ?? Keep all follow-up visits as told by your doctor. This is important. Contact a doctor if: ?? Your pain is worse. ?? You have redness, swelling, or pain in the injured area. ?? You have fluid, blood, or pus coming from under your cast or splint. ?? There is a bad smell coming from under your cast or splint. ?? You have a fever. Get help right away if: ?? You get a rash. ?? You have trouble breathing. ?? Your skin or nails on your injured hand turn blue or bowers even after you loosen your splint. ?? Your injured hand feels cold or gets numb even after you loosen your splint. ?? You have very bad pain under the cast or in your hand. This information is not intended to replace advice given to you by your health care provider. Make sure you discuss any questions you have with your health care provider. Document Released: 01/11/2009 Document Revised: 12/31/2016 Document Reviewed: 05/15/2015 [employer] Interactive Patient Education ?? 2019 [employer] ITAL SOCIAL WORKER documented in this encounter Progress Notes Navya Elena MD - 08/14/2019 11:40 AM CST Estab Patient Visit Subjective Patient ID: Hattie Brenner is a 39 y.o. female. Chief Complaint Patient presents with ??? right hand injury DOI 08/12/2019 HPI Patient is a [id number] 39-year-old female who presents for relation of a right hand injurythat occurred 3 days ago while she was sledding. She says she slammed the dorsal aspect of her righthand against a snow bank while sliding. She had sudden onset of extreme pain followed by subsequent swelling which is ongoing despite icing the area. She says it does not hurt if she holds still but ifanything brushes against the top of her hand it is very painful. She points to the fourth metacarpalas the area of the most pain. She is also had some intermittent numbness and tingling of her fingers. Current Outpatient Medications on File Prior to Visit Medication Sig Dispense Refill ??? Cholecalciferol (VITAMIN D3 PO) 1 capsule daily ??? Brownell-3 Fatty Acids (FISH OIL OMEGA-3 PO) 1 capsule daily ??? Probiotic Product (PROBIOTIC DAILY PO) 1 capsule daily ??? THYROID PO Take by mouth No current facility-administered medications on file prior to visit. Paroxetine and Seasonal The following portions of the patient's chart were reviewed in this encounter and updated as appropriate: Tobacco Allergies Meds Review of Systems See HPI. Objective Physical Exam Blood pressure 116/70, pulse 84, temperature 37.6 ??C (99.7 ??F), temperature source Temporal, resp.rate 16, height 1.694 m (5' 6.7), weight 62.9 kg (138 lb 10.7 oz), SpO2 99 %. Generally patient is well-appearing not in acute distress. On the dorsal aspect of her right hand there is significant swelling and bruising and patient has tenderness to palpation over the fourth metacarpal and to a lesser extent along the fifth metacarpal. She has some decreased sensation to light touch of her fingers and intact capillary refill. Normal range of motion of her wrist and elbow. Assessment/Plan Diagnoses and all orders for this visit: Other fracture of fourth metacarpal bone, right hand, initial encounter for closed fracture - Orthopedic injury treatment Hand injury, right, initial encounter - X-ray hand 3+ views right; Future - Orthopedic injury treatment We reviewed her x-ray which showed a displaced fracture at the distal metadiaphysis of the fourth metacarpal there is also a suggestion of a nondisplaced fracture of the distal metaphysis of the fifth metacarpal as well. There is no joint space involvement. I discussed these findings with the patient and we discussed putting her in an ulnar gutter splint which was completed in clinic today. She was instructed on care and use of this. Estimated length of use is 4 to 6 weeks. Discussed that if she is not starting to improve in the next week she needs to follow-up in 1 week. Otherwise, she can follow-up in 4 weeks for recheck. She does not want to take anypain medications. She feels that she is tolerating the pain fine. She works as a 7th grade social studies teacher and thinks that she can modify her activity and remain working. There are no Patient Instructions on file for this visit. ITAL SOCIAL WORKER Aspen Love MA - 08/14/2019 11:40 AM CSTAssociated Order(s): Orthopedic injury treatment Post-Procedure Diagnose(s): Hand injury, right, initial encounter; Other fracture of fourth metacarpal bone, right hand, initial encounter for closed fracture Nurse Procedure Note Orthopedic injury treatment Date/Time: 08/14/2019 11:47 AM Performed by: Aspen Love MA Authorized by: Navya Elena MD Consent: Consent obtained: Verbal Consent given by: Patient Risks discussed: Nerve damage, pain and vascular damage Alternatives discussed: No treatment Injury: Injury location: Hand Hand injury location: R hand Hand fracture type: fourth metacarpal Pre-procedure assessment: Neurological function: normal Distal perfusion: normal Range of motion: normal Anesthesia (see MAR for exact dosages): Anesthesia method: None Procedure details: Manipulation performed: no Skin traction used: no Skeletal traction used: no Pin inserted: no Reduction successful: no X-ray confirmed reduction: no Immobilization: Splint Splint type: Ulnar gutter Supplies used: Cotton padding, elastic bandage and Ortho-Glass Post-procedure assessment: Neurological function: normal Distal perfusion: normal Range of motion: normal Patient tolerance of procedure: Tolerated well, no immediate complications ITAL SOCIAL WORKER documented in this encounter Plan of Treatment Not on filedocumented as of this encounter Procedures Procedure Name Priority Date/Time Associated Comments Diagnosis ORTHOPEDIC INJURY Routine 08/14/2019 11:40 Hand injury, right, Results for this TREATMENT - FRACTURE AM [facility]OSPITAL SOCIAL WORKER initial enc ounter procedure are in DISLOCATION Other fracture of the result s fourth metacarpal section. bone, right hand, initial encounter for closed fracture XR HAND 3+ VIEWS Today 08/14/2019 10:55 Hand injury, right, Results for this RIGHT AM [facility]ITAL [facility]ER initial encounter procedure are in the results section. documented in this encounter Results Orthopedic injury treatment (08/14/2019 11:40 AM HOSPITAL SOCIAL WORKER) Narrative Aspen Love MA - 08/14/2019 11:4 0 AM HOSPITAL SOCIAL WORKER Aspen Love MA ? 08/14/2019 12:07 PM Orthopedic injury treatment Date/Time: 08/14/2019 11:47 AM Performed by: Aspen Love MA Authorized by: Navya Elena MD Consent: ??Consent obtained: ??Verbal ??Consent given by: ??Patient ??Risks discussed: ??Nerve damage, pain and vascular damage ??Alternatives discussed: ??No treatmen t Injury: ??Injury location: ??Hand ??Hand injury location: ??R hand ??Hand fracture type: fourth metacarpal ?? Pre-procedure assessment: ??Neurological function: normal ?Distal perfusion: normal ?Range of motion: normal ?? Anesthesia (see MAR for exact dosages): ??Anesthesia method: ??None Procedure details: ??Manipulation performed: no ?Skin traction used: no ?Skeletal traction used: no ?Pin inserted: no ?Reduction successful: no ?X-ray confirmed reduction: no ?Immobilization: ??Splint ??Splint type: ??Ulnar gutter ??Supplies used: ??Cotton padding, elas tic bandage and Ortho-Glass Post-procedure assessment: ??Neurological function: normal ?Distal perfusion: normal ?Range of motion: normal ?Patient tolerance of procedure: ??Cortes erated well, no immediate complications Navya Elena MD IN CLINIC/BEDSIDE ORDERABLES X-ray hand 3+ views right (08/14/2019 10:55 AM HOSPITAL SOCIAL WORKER) Anatomical Region Laterality Modality Upper Extremities, Hand Right Radiographic Nery ging Specimen (Source) Anatomical Collection Method Collection Time Re ceived Time Location / / Volume Laterality 08/14/2019 10:55 AM HOSPITAL SOCIAL WORKER Impressions 08/14/2019 11:14 AM HOSPITAL SOCIAL WORKER IMPRESSION: HAND COMPLETE RIGHT (3 VIEWS) There is an oblique nondisplaced fractur e at the distal metadiaphysis of the 4th metacarpal. ??There is the sugge stion of oblique linear lucency at the distal metaphysis of the 5th metacar pal on the oblique view, concerning for a nondisplaced fracture. ??No dislocation. ??No joint space abnormality. ??If there is a clinical ne ed for additional imaging, follow-up radiographs in 7-10 days could be considered. Narrative 08/14/2019 11:14 AM HOSPITAL SOCIAL WORKER INDICATION: Hand trauma, metacarpal fx or dislocatio n suspected COMPARISON: None available Procedure Note Ling Pabon MD - 08/14/2019 INDICATION: Hand trauma, metacarpal fx or dislocatio n suspected COMPARISON: None available IMPRESSION: HAND COMPLETE RIGHT (3 VIEWS) There is an oblique nondisplaced fractur e at the distal metadiaphysis of the 4th metacarpal. There is the suggest ion of oblique linear lucency at the distal metaphysis of the 5th metacar pal on the oblique view, concerning for a nondisplaced fracture. No dislocation. No joint space abnormality. If there is a clinical need for additional imaging, follow-up radiographs in 7-10 days could be considered. Navya Elena MD IMG XR PROCEDURES documented in this encounter Visit Diagnoses Diagnosis Other fracture of fourth metacarpal bone , right hand, initial encounter for closed fracture - Primary Hand injury, right, initial encounter documented in this encounter Care Teams Cut Out Marker Relationship Specialty Start Date End Date Navya Elena MD PCP - General Family Medicine 07/13/19 documented as of this encounter
== END 2022-05-04 10:27 | disposition home or self-care (01) ==
PROVIDERS: PCP Nurse Practitioner Family; Visit Provider Nurse Practitioner Family
DX: Z01.419 Encounter for gynecological examination (general) (routine) without abnormal findings (principal); E06.3 Autoimmune thyroiditis
CPT/HCPCS: 36415; 84443; 87624; 88175

== ENCOUNTER 2022-06-15 06:12 | Day surgery (SDC) | payer BC, SELFPAY ==
[2022-06-15] VITALS (15 sets, daily range): BP systolic 111–128; BP diastolic 68–80; PULSE 70–107; RESP 12–16; TEMP 36.7–36.9; O2SAT 95–100; BMI 21.9
[2022-06-15] MEDS: LACTATED RINGERS 1000 ML 1,000 ML 100 ML IV ×2 (07:15→08:06)
[2022-06-15] MEDS: SODIUM CHLORIDE 0.9 % (FLUSH) 10 ML SYRINGE IVF (07:26)
[2022-06-15 07:40] LABS: HCG Qualitative* Negative (Negative)
[2022-06-15] MEDS: CEFAZOLIN 2 GM INJ IVP (07:55)
[2022-06-15] MEDS: LACTATED RINGERS 1000 ML 1,000 ML 75 ML IV (08:00)
[2022-06-15] MEDS: BUPIVACAINE 0.25% 30 ML INJECTION (08:07)
--- NOTE | 2022-06-15 09:06 | W.ANESCHARGE ---
Anesthesia Charges Start Date/Time Anesthesia Start Date: 06/15/22 Anesthesia Start Time: 07:49 Stop Date/Time Anesthesia Stop Date: 06/15/22 Anesthesia Stop Time: 09:07 Summary Emergency: No
--- NOTE | 2022-06-15 09:08 | PM.GSPRC ---
Operative Note Date of procedure: 06/15/22 Type of Procedure: 1. Open umbilical hernia repair without mesh. Procedure Description: After discussing the risks and benefits of the procedure, the patient signed informed consent.? The operative site was marked and the patient was brought to the operating room and placed on the operating table in supine position.? Care was taken to pad the patient's pressure points.?? The patient was then intubated by anesthesia.?? The operative site was then prepped and draped in the usual sterile fashion.? A time-out was then performed. Local anesthetic was injected around the umbilicus. An infraumbilical curvilinear incision was made with a scalpel. Subcutaneous tissues were divided with cautery down to the hernia sac. The umbilicus was then from the anterior fascia with cautery. Care was taken to avoid injury to intra-abdominal organs. The fascial defect was cleared off subcutaneous fat with cautery circumferentially. The fascia was grasped with Dulce clamp and peritoneum was dissected away from the fascia to create preperitoneal space in order to close peritoneum. This was done with cautery. Hemostasis achieved with cautery. Peritoneum and posterior fascia was then closed with a running 2-0 Vicryl suture. The fascia was somewhat thinned out but lax. The fascial defect was approximately 2.3 cm. The fascial defect was then closed with interrupted 0-0 Nurolon sutures. Peritoneal sac overlying the umbilicus was excised with cautery. Additional local anesthetic was injected into subcutaneous space. The umbilicus was then tacked to the fascia with interrupted 3-0 Vicryl sutures. The dermis was closed with interrupted 3-0 sutures. The skin of the infraumbilical incision was then closed with 4-0 Monocryl subcuticular stitch. Steri-Strips and sterile pressure dressings were placed over the incision. ? The patient was then woken and transported to the recovery area in stable condition. ? The patient tolerated the procedure well. Findings: 2.3 cm fascial defect. Mesh was not implanted due to patient's preference. Anesthesia: GETA Surgeon: Celina Cornejo MD Estimated blood loss (mL): 5 Condition: stable Disposition: PACU
== END 2022-06-15 11:30 | disposition home or self-care (01) ==
PROVIDERS: PCP Nurse Practitioner Family; Visit Provider Surgery
PROC: (CPT 49585; principal; 2022-06-15 07:30)
DX: K42.9 Umbilical hernia without obstruction or gangrene (principal)
CPT/HCPCS: 49585; 00750; 84703; J0330; J0690; J1100; J1200; J1885; J2405; J2704; J2710; J3010; J3490; J7120

== ENCOUNTER 2023-02-01 14:20 | Outpatient (CLI) | payer BC, SELFPAY | END 2023-02-01 14:21 | disposition home or self-care (01) | LOC: NFLDREF 02-02 09:41 | PROVIDERS: PCP Nurse Practitioner Family; Referring Provider Nurse Practitioner Family; Visit Provider Nurse Practitioner Family | DX: E06.3 Autoimmune thyroiditis (principal) | CPT/HCPCS: 84443 ==

== ENCOUNTER 2023-03-08 07:48 | Outpatient (CLI) | payer BC, SELFPAY | END 2023-03-08 07:49 | disposition home or self-care (01) | PROVIDERS: PCP Nurse Practitioner Family; Visit Provider Nurse Practitioner Family | DX: E06.3 Autoimmune thyroiditis (principal) | CPT/HCPCS: 84443 ==

== ENCOUNTER 2023-07-29 11:00 | Outpatient (CLI) | payer BC, SELFPAY | END 2023-07-29 11:01 | disposition home or self-care (01) | PROVIDERS: PCP Nurse Practitioner Family; Visit Provider Nurse Practitioner Family | DX: Z13.220 Encounter for screening for lipoid disorders (principal); Z13.0 Encounter for screening for diseases of the blood and blood-forming organs and certain disorders involving the immune mechanism; E06.3 Autoimmune thyroiditis; Z13.1 Encounter for screening for diabetes mellitus | CPT/HCPCS: 80061; 82947; 84443; 85025 ==

== ENCOUNTER 2024-08-21 10:49 | Outpatient (CLI) | payer BC, SELFPAY | END 2024-08-21 10:50 | disposition home or self-care (01) | PROVIDERS: PCP Nurse Practitioner Family; Visit Provider Nurse Practitioner Family | DX: E06.3 Autoimmune thyroiditis (principal) | CPT/HCPCS: 84432; 84436; 84439; 84443; 84480; 84481; 84482; 86376; 86800 ==

== ENCOUNTER 2024-10-19 14:21 | Outpatient (CLI) | payer BC, SELFPAY | END 2024-10-19 14:22 | disposition home or self-care (01) | PROVIDERS: PCP Nurse Practitioner Family; Visit Provider Nurse Practitioner Family | DX: E06.3 Autoimmune thyroiditis (principal); R53.83 Other fatigue; R51.9 Headache, unspecified | CPT/HCPCS: 80050; 80053; 82306; 82607; 82728; 84443; 85025; 85651; 86140 ==